=== PATIENT | male | born 1955 | race Hispanic/Latino ===

== ENCOUNTER 2020-04-15 12:57 | Inpatient (IN) | payer MEDICARE ==
[2020-04-15] MEDS ORDERED: CEFEPIME/NS 2 GM/100 ML 2 GM/100 ML BAG IV ONE (14:31)
[2020-04-15] MEDS ORDERED: SODIUM CHLORIDE 0.9% 1000 ML 1,000 ML IV ONE (14:37)
[2020-04-15 15:30] LABS: Hematocrit 38.7 % (35.5-45.6); Mean Corpuscular HGB Conc 31 % (32-34); Mean Corpuscular Volume 94 fl (84-94); Platelet Count 358 K/mm3 (140-440); Red Blood Count 4.14 M/mm3 (3.65-5.03); Red Cell Distribution Width 17.1 % (13.2-15.2)
--- NOTE | 2020-04-15 15:31 | XRay Report ---
CHEST 1 VIEW 04/15/2020 2:15 PM INDICATION / CLINICAL INFORMATION: sepsis. COMPARISON: None available. FINDINGS: SUPPORT DEVICES: None. HEART / MEDIASTINUM: Cardiomegaly. Aortic arch atherosclerotic calcification. Hilar and mediastinal c ontours are otherwise unremarkable. LUNGS / PLEURA: Mildly hyperexpanded lungs suggest COPD changes. Left costophrenic angle is visualize d suggesting [id number] pleural effusion. Right lung is clear. No pneumothorax. ADDITIONAL FINDINGS: No significant additional findings. IMPRESSION: 1. Blunting of the left costophrenic angle suggesting [id number] pleural effusion. 2. Mildly hyperexpanded lungs suggesting COPD. 3. Cardiomegaly. Signer Name: Brandon Morgan MD Signed: 04/15/2020 3:26 PM Workstation Name: [id number]
[2020-04-15 15:54] LABS: C-Reactive Protein 17.5 mg/dL (0.00-1.30)
[2020-04-15 15:54] LABS: Bilirubin,Urine NEG (Negative); Blood,Urine NEG (Negative); Color,Urine Yellow (Yellow)
[2020-04-15 16:00] LABS: Alanine Aminotransferase 19 units/L (7-56); Albumin 2.5 g/dL (3.9-5); Blood Urea Nitrogen 29 mg/dL (9-20); Calcium 8.9 mg/dL (8.4-10.2); Hemolysis Index 1
[2020-04-15 16:00] LABS: ABG Base Excess 4.5 mmol/L (-2.0-3.0); ABG HCO3 29.6 mmol/L (20.0-26.0); ABG Methemoglobin 0.5 % (0.0-1.5); ABG Oxygen Saturation 87.3 % (95.0-99.0); ABG PCO2 46.4 mm Hg; ABG PH 7.423 pH Units (7.350-7.450); ABG PO2 56.2 mm Hg (80.0-90.0)
[2020-04-15 16:03] LABS: BUN/Creatinine Ratio 41
[2020-04-15 16:19] LABS: Chol/HDL Ratio 2.43 %
--- NOTE | 2020-04-15 16:33 | Emergency Department Report ---
ED General Adult HPI - General Chief complaint: Dyspnea/Respdistress Stated complaint: MENTAL HEALTH Time Seen by Provider: 04/15/20 13:14 Source: EMS Mode of arrival: Stretcher Limitations: No Limitations - History of Present Illness Initial comments: The patient presents to the emergency department from [facility] via EMS for chief complaint of altered mental status. Per EMS the patient was found in his room with his O2 sats in the 80s. He was placed on 3 L nasal cannula with O2 sats rising to 94%. Patient received 800 cc of fluid in route via EMS. The patient is altered upon arrival is not able to answer questions. Per EMS his systolic blood pressure was 82 upon arrival and the patient had a temperature of 100.4 -: unknown Consistency: constant Improves with: none Worsens with: none Associated Symptoms: denies other symptoms Treatments Prior to Arrival: none - Related Data Allergies Allergy/AdvReac Type Severity Reaction Status Date / Time No Known Allergies Allergy Unverified 04/15/20 13:09 ED Review of Systems ROS: Stated complaint: MENTAL HEALTH Other details as noted in HPI Comment: Unobtainable due to pts medical conditions ED Past Medical Hx - Past Medical History Previous Medical History?: Yes Hx Congestive Heart Failure: Yes Hx Diabetes: Yes Additional medical history: A fib ED Physical Exam - General Limitations: No Limitations General appearance: obtunded (But arousable to verbal and painful stimuli) - Head Head exam: Present: atraumatic, normocephalic - Eye Eye exam: Present: normal appearance, PERRL, EOMI - ENT ENT exam: Present: mucous membranes dry - Neck Neck exam: Present: normal inspection - Respiratory Respiratory exam: Present: respiratory distress, decreased breath sounds. Absent: wheezes, rales - Cardiovascular Cardiovascular Exam: Present: normal rhythm, tachycardia - GI/Abdominal GI/Abdominal exam: Present: soft, normal bowel sounds. Absent: distended, tenderness - exam: Present: other (Patient has swelling of his scrotum secondary to a direct inguinal hernia; hernia cannot be reduced on exam but returned to its original herniated position). Absent: testicular tenderness - Extremities Exam Extremities exam: Present: normal inspection - Neurological Exam Neurological exam: Present: altered - Skin Skin exam: Present: warm, dry, intact, normal color, other (Patient has decubitus ulcers of the sacrum) ED Course Vital Signs 04/15/20 04/15/20 04/15/20 14:32 14:35 14:37 Temperature 100.2 F H Pulse Rate 87 81 Respiratory 18 22 23 Rate Blood Pressure Blood Pressure 86/57 [Right] O2 Sat by Pulse 97 94 99 Oximetry 04/15/20 04/15/20 04/15/20 14:45 15:01 15:15 Temperature Pulse Rate 82 89 82 Respiratory 18 24 11 L Rate Blood Pressure 86/57 78/55 86/62 Blood Pressure [Right] O2 Sat by Pulse 81 L 99 100 Oximetry 04/15/20 04/15/20 04/15/20 15:31 15:45 16:30 Temperature Pulse Rate 86 97 H Respiratory 21 26 H Rate Blood Pressure 86/62 79/46 Blood Pressure [Right] O2 Sat by Pulse 87 88 97 Oximetry ED Medical Decision Making - Lab Data Result diagrams: 04/15/20 15:07 04/15/20 15:07 Lab Results 04/15/20 04/15/20 04/15/20 Range/Units 15:04 15:07 15:07 WBC 23.2 H (4.5-11.0) K/mm3 RBC 4.14 (3.65-5.03) M/mm3 Hgb 12.0 (11.8-15.2) gm/dl Hct 38.7 (35.5-45.6) % MCV 94 (84-94) fl MCH 29 (28-32) pg MCHC 31 L (32-34) % RDW 17.1 H (13.2-15.2) % Plt Count 358 (140-440) K/mm3 Add Manual Diff Complete Total Counted 100 Seg Neuts % (Manual) 88.0 H (40.0-70.0) % Band Neutrophils % 3.0 % Lymphocytes % (Manual) 5.0 L (13.4-35.0) % Monocytes % (Manual) 4.0 (0.0-7.3) % Nucleated RBC % Not Reportable Seg Neutrophils # Man 20.4 H (1.8-7.7) K/mm3 Band Neutrophils # 0.7 K/mm3 Lymphocytes # (Manual) 1.2 (1.2-5.4) K/mm3 Abs React Lymphs (Man) 0.0 K/mm3 Monocytes # (Manual) 0.9 H (0.0-0.8) K/mm3 Eosinophils # (Manual) 0.0 (0.0-0.4) K/mm3 Basophils # (Manual) 0.0 (0.0-0.1) K/mm3 Metamyelocytes # 0.0 K/mm3 Myelocytes # 0.0 K/mm3 Promyelocytes # 0.0 K/mm3 Blast Cells # 0.0 K/mm3 WBC Morphology Not Reportable Hypersegmented Neuts Not Reportable Hyposegmented Neuts Not Reportable Hypogranular Neuts Not Reportable Smudge Cells Not Reportable Toxic Granulation Not Reportable Toxic Vacuolation Not Reportable Dohle Bodies Not Reportable Pelger-Huet Anomaly Not Reportable Gregorio Rods Not Reportable Platelet Estimate Consistent w auto Clumped Platelets Not Reportable Plt Clumps, EDTA Not Reportable Large Platelets Rare Giant Platelets Not Reportable Platelet Satelliting Not Reportable Plt Morphology Comment Not Reportable RBC Morphology Not Reportable Dimorphic RBCs Not Reportable Polychromasia Not Reportable Hypochromasia Not Reportable Poikilocytosis Not Reportable Anisocytosis Not Reportable Microcytosis Not Reportable Macrocytosis Not Reportable Spherocytes Not Reportable Pappenheimer Bodies Not Reportable Sickle Cells Not Reportable Target Cells Not Reportable Tear Drop Cells Not Reportable Ovalocytes Rare Helmet Cells Not Reportable [place] Bodies Not Reportable [place] Rings Not Reportable Ki Cells Not Reportable Bite Cells Not Reportable Crenated Cell Not Reportable Elliptocytes Not Reportable Acanthocytes (Spur) Rare Rouleaux Not Reportable Hemoglobin C Crystals Not Reportable Schistocytes Not Reportable Malaria parasites Not Reportable Balwinder Bodies Not Reportable Hem Pathologist Commnt No APTT 40.2 H (24.2-36.6) Sec. D-Dimer (0-234) ng/mlDDU ABG pH (7.350-7.450) pH Units ABG pCO2 mm Hg ABG pO2 (80.0-90.0) mm Hg ABG HCO3 (20.0-26.0) mmol/L ABG O2 Saturation (95.0-99.0) % ABG O2 Content (0.0-44) ABG Base Excess (-2.0-3.0) mmol/L ABG Hemoglobin (14.0-18.0) gm/dl ABG Carboxyhemoglobin (0.0-5.0) % ABG Methemoglobin (0.0-1.5) % Oxyhemoglobin (95.0-99.0) % FiO2 % Sodium (137-145) mmol/L Potassium (3.6-5.0) mmol/L Chloride (98-107) mmol/L Carbon Dioxide (22-30) mmol/L Anion Gap mmol/L BUN (9-20) mg/dL Creatinine (0.8-1.3) mg/dL Estimated GFR ml/min BUN/Creatinine Ratio % Glucose (75-100) mg/dL Lactic Acid (0.7-2.0) mmol/L Calcium (8.4-10.2) mg/dL Ferritin (30.0-300.0) ng/mL Total Bilirubin (0.1-1.2) mg/dL AST (5-40) units/L ALT (7-56) units/L Alkaline Phosphatase (35-129) units/L Ammonia (25-60) umol/L Lactate Dehydrogenase (91-180) units/L Troponin T (0.00-0.029) ng/mL C-Reactive Protein (0.00-1.30) mg/dL NT-Pro-B Natriuret Pep (0-900) pg/mL Total Protein (6.3-8.2) g/dL Albumin (3.9-5) g/dL Albumin/Globulin Ratio % Triglycerides (2-149) mg/dL Cholesterol (50-199) mg/dL LDL Cholesterol Direct (50-130) mg/dL HDL Cholesterol (40-59) mg/dL Cholesterol/HDL Ratio % Urine Color Yellow (Yellow) Urine Turbidity Clear (Clear) Urine pH 5.0 (5.0-7.0) Ur Specific Ross 1.018 (1.003-1.030) Urine Protein 30 mg/dl (Negative) mg/dL Urine Glucose (UA) Neg (Negative) mg/dL Urine Ketones Neg (Negative) mg/dL Urine Blood Neg (Negative) Urine Nitrite Neg (Negative) Urine Bilirubin Neg (Negative) Urine Urobilinogen 4.0 (<2.0) mg/dL Ur Leukocyte Esterase Neg (Negative) Urine WBC (Auto) 2.0 (0.0-6.0) /HPF Urine RBC (Auto) 1.0 (0.0-6.0) /HPF 04/15/20 04/15/20 04/15/20 Range/Units 15:07 15:07 15:07 WBC (4.5-11.0) K/mm3 RBC (3.65-5.03) M/mm3 Hgb (11.8-15.2) gm/dl Hct (35.5-45.6) % MCV (84-94) fl MCH (28-32) pg MCHC (32-34) % RDW (13.2-15.2) % Plt Count (140-440) K/mm3 Add Manual Diff Total Counted Seg Neuts % (Manual) (40.0-70.0) % Band Neutrophils % % Lymphocytes % (Manual) (13.4-35.0) % Monocytes % (Manual) (0.0-7.3) % Nucleated RBC % Seg Neutrophils # Man (1.8-7.7) K/mm3 Band Neutrophils # K/mm3 Lymphocytes # (Manual) (1.2-5.4) K/mm3 Abs React Lymphs (Man) K/mm3 Monocytes # (Manual) (0.0-0.8) K/mm3 Eosinophils # (Manual) (0.0-0.4) K/mm3 Basophils # (Manual) (0.0-0.1) K/mm3 Metamyelocytes # K/mm3 Myelocytes # K/mm3 Promyelocytes # K/mm3 Blast Cells # K/mm3 WBC Morphology Hypersegmented Neuts Hyposegmented Neuts Hypogranular Neuts Smudge Cells Toxic Granulation Toxic Vacuolation Dohle Bodies Pelger-Huet Anomaly Gregorio Rods Platelet Estimate Clumped Platelets Plt Clumps, EDTA Large Platelets Giant Platelets Platelet Satelliting Plt Morphology Comment RBC Morphology Dimorphic RBCs Polychromasia Hypochromasia Poikilocytosis Anisocytosis Microcytosis Macrocytosis Spherocytes Pappenheimer Bodies Sickle Cells Target Cells Tear Drop Cells Ovalocytes Helmet Cells Werner-[place] Bodies [place] Rings [place] Cells Bite Cells Crenated Cell Elliptocytes Acanthocytes (Spur) Rouleaux Hemoglobin C Crystals Schistocytes Malaria parasites Balwinder Bodies Hem Pathologist Commnt APTT (24.2-36.6) Sec. D-Dimer (0-234) ng/mlDDU ABG pH (7.350-7.450) pH Units ABG pCO2 mm Hg ABG pO2 (80.0-90.0) mm Hg ABG HCO3 (20.0-26.0) mmol/L ABG O2 Saturation (95.0-99.0) % ABG O2 Content (0.0-44) ABG Base Excess (-2.0-3.0) mmol/L ABG Hemoglobin (14.0-18.0) gm/dl ABG Carboxyhemoglobin (0.0-5.0) % ABG Methemoglobin (0.0-1.5) % Oxyhemoglobin (95.0-99.0) % FiO2 % Sodium 138 (137-145) mmol/L Potassium 5.2 H (3.6-5.0) mmol/L Chloride 98.6 (98-107) mmol/L Carbon Dioxide 32 H (22-30) mmol/L Anion Gap 13 mmol/L BUN 29 H (9-20) mg/dL Creatinine 0.7 L (0.8-1.3) mg/dL Estimated GFR > 60 ml/min BUN/Creatinine Ratio 41 % Glucose 199 H (75-100) mg/dL Lactic Acid 0.90 (0.7-2.0) mmol/L Calcium 8.9 (8.4-10.2) mg/dL Ferritin (30.0-300.0) ng/mL Total Bilirubin 0.70 (0.1-1.2) mg/dL AST 33 (5-40) units/L ALT 19 (7-56) units/L Alkaline Phosphatase 169 H (35-129) units/L Ammonia (25-60) umol/L Lactate Dehydrogenase (91-180) units/L Troponin T 0.138 H* (0.00-0.029) ng/mL C-Reactive Protein (0.00-1.30) mg/dL NT-Pro-B Natriuret Pep (0-900) pg/mL Total Protein 5.4 L (6.3-8.2) g/dL Albumin 2.5 L (3.9-5) g/dL Albumin/Globulin Ratio 0.9 % Triglycerides 79 (2-149) mg/dL Cholesterol 78 (50-199) mg/dL LDL Cholesterol Direct 33 L (50-130) mg/dL HDL Cholesterol 32 L (40-59) mg/dL Cholesterol/HDL Ratio 2.43 % Urine Color (Yellow) Urine Turbidity (Clear) Urine pH (5.0-7.0) Ur Specific Ross (1.003-1.030) Urine Protein (Negative) mg/dL Urine Glucose (UA) (Negative) mg/dL Urine Ketones (Negative) mg/dL Urine Blood (Negative) Urine Nitrite (Negative) Urine Bilirubin (Negative) Urine Urobilinogen (<2.0) mg/dL Ur Leukocyte Esterase (Negative) Urine WBC (Auto) (0.0-6.0) /HPF Urine RBC (Auto) (0.0-6.0) /HPF 04/15/20 04/15/20 04/15/20 Range/Units 15:07 15:07 15:07 WBC (4.5-11.0) K/mm3 RBC (3.65-5.03) M/mm3 Hgb (11.8-15.2) gm/dl Hct (35.5-45.6) % MCV (84-94) fl MCH (28-32) pg MCHC (32-34) % RDW (13.2-15.2) % Plt Count (140-440) K/mm3 Add Manual Diff Total Counted Seg Neuts % (Manual) (40.0-70.0) % Band Neutrophils % % Lymphocytes % (Manual) (13.4-35.0) % Monocytes % (Manual) (0.0-7.3) % Nucleated RBC % Seg Neutrophils # Man (1.8-7.7) K/mm3 Band Neutrophils # K/mm3 Lymphocytes # (Manual) (1.2-5.4) K/mm3 Abs React Lymphs (Man) K/mm3 Monocytes # (Manual) (0.0-0.8) K/mm3 Eosinophils # (Manual) (0.0-0.4) K/mm3 Basophils # (Manual) (0.0-0.1) K/mm3 Metamyelocytes # K/mm3 Myelocytes # K/mm3 Promyelocytes # K/mm3 Blast Cells # K/mm3 WBC Morphology Hypersegmented Neuts Hyposegmented Neuts Hypogranular Neuts Smudge Cells Toxic Granulation Toxic Vacuolation Dohle Bodies Pelger-Huet Anomaly Gregorio Rods Platelet Estimate Clumped Platelets Plt Clumps, EDTA Large Platelets Giant Platelets Platelet Satelliting Plt Morphology Comment RBC Morphology Dimorphic RBCs Polychromasia Hypochromasia Poikilocytosis Anisocytosis Microcytosis Macrocytosis Spherocytes Pappenheimer Bodies Sickle Cells Target Cells Tear Drop Cells Ovalocytes Helmet Cells Werner-[place] Bodies [place] Rings [place] Cells Bite Cells Crenated Cell Elliptocytes Acanthocytes (Spur) Rouleaux Hemoglobin C Crystals Schistocytes Malaria parasites Balwinder Bodies Hem Pathologist Commnt APTT (24.2-36.6) Sec. D-Dimer 801.82 H (0-234) ng/mlDDU ABG pH (7.350-7.450) pH Units ABG pCO2 mm Hg ABG pO2 (80.0-90.0) mm Hg ABG HCO3 (20.0-26.0) mmol/L ABG O2 Saturation (95.0-99.0) % ABG O2 Content (0.0-44) ABG Base Excess (-2.0-3.0) mmol/L ABG Hemoglobin (14.0-18.0) gm/dl ABG Carboxyhemoglobin (0.0-5.0) % ABG Methemoglobin (0.0-1.5) % Oxyhemoglobin (95.0-99.0) % FiO2 % Sodium (137-145) mmol/L Potassium (3.6-5.0) mmol/L Chloride (98-107) mmol/L Carbon Dioxide (22-30) mmol/L Anion Gap mmol/L BUN (9-20) mg/dL Creatinine (0.8-1.3) mg/dL Estimated GFR ml/min BUN/Creatinine Ratio % Glucose 204 H (75-100) mg/dL Lactic Acid (0.7-2.0) mmol/L Calcium (8.4-10.2) mg/dL Ferritin 469.2 H (30.0-300.0) ng/mL Total Bilirubin (0.1-1.2) mg/dL AST (5-40) units/L ALT (7-56) units/L Alkaline Phosphatase (35-129) units/L Ammonia (25-60) umol/L Lactate Dehydrogenase 193 H (91-180) units/L Troponin T (0.00-0.029) ng/mL C-Reactive Protein 17.50 H (0.00-1.30) mg/dL NT-Pro-B Natriuret Pep (0-900) pg/mL Total Protein (6.3-8.2) g/dL Albumin (3.9-5) g/dL Albumin/Globulin Ratio % Triglycerides (2-149) mg/dL Cholesterol (50-199) mg/dL LDL Cholesterol Direct (50-130) mg/dL HDL Cholesterol (40-59) mg/dL Cholesterol/HDL Ratio % Urine Color (Yellow) Urine Turbidity (Clear) Urine pH (5.0-7.0) Ur Specific Ross (1.003-1.030) Urine Protein (Negative) mg/dL Urine Glucose (UA) (Negative) mg/dL Urine Ketones (Negative) mg/dL Urine Blood (Negative) Urine Nitrite (Negative) Urine Bilirubin (Negative) Urine Urobilinogen (<2.0) mg/dL Ur Leukocyte Esterase (Negative) Urine WBC (Auto) (0.0-6.0) /HPF Urine RBC (Auto) (0.0-6.0) /HPF 04/15/20 04/15/20 04/15/20 Range/Units 15:07 15:07 15:35 WBC (4.5-11.0) K/mm3 RBC (3.65-5.03) M/mm3 Hgb (11.8-15.2) gm/dl Hct (35.5-45.6) % MCV (84-94) fl MCH (28-32) pg MCHC (32-34) % RDW (13.2-15.2) % Plt Count (140-440) K/mm3 Add Manual Diff Total Counted Seg Neuts % (Manual) (40.0-70.0) % Band Neutrophils % % Lymphocytes % (Manual) (13.4-35.0) % Monocytes % (Manual) (0.0-7.3) % Nucleated RBC % Seg Neutrophils # Man (1.8-7.7) K/mm3 Band Neutrophils # K/mm3 Lymphocytes # (Manual) (1.2-5.4) K/mm3 Abs React Lymphs (Man) K/mm3 Monocytes # (Manual) (0.0-0.8) K/mm3 Eosinophils # (Manual) (0.0-0.4) K/mm3 Basophils # (Manual) (0.0-0.1) K/mm3 Metamyelocytes # K/mm3 Myelocytes # K/mm3 Promyelocytes # K/mm3 Blast Cells # K/mm3 WBC Morphology Hypersegmented Neuts Hyposegmented Neuts Hypogranular Neuts Smudge Cells Toxic Granulation Toxic Vacuolation Dohle Bodies Pelger-Huet Anomaly Gregorio Rods Platelet Estimate Clumped Platelets Plt Clumps, EDTA Large Platelets Giant Platelets Platelet Satelliting Plt Morphology Comment RBC Morphology Dimorphic RBCs Polychromasia Hypochromasia Poikilocytosis Anisocytosis Microcytosis Macrocytosis Spherocytes Pappenheimer Bodies Sickle Cells Target Cells Tear Drop Cells Ovalocytes Helmet Cells Werner-[place] Bodies [place] Rings [place] Cells Bite Cells Crenated Cell Elliptocytes Acanthocytes (Spur) Rouleaux Hemoglobin C Crystals Schistocytes Malaria parasites Balwinder Bodies Hem Pathologist Commnt APTT (24.2-36.6) Sec. D-Dimer (0-234) ng/mlDDU ABG pH 7.423 (7.350-7.450) pH Units ABG pCO2 46.4 mm Hg ABG pO2 56.2 L (80.0-90.0) mm Hg ABG HCO3 29.6 H (20.0-26.0) mmol/L ABG O2 Saturation 87.3 L (95.0-99.0) % ABG O2 Content 14.0 (0.0-44) ABG Base Excess 4.5 H (-2.0-3.0) mmol/L ABG Hemoglobin 11.6 L (14.0-18.0) gm/dl ABG Carboxyhemoglobin 1.5 (0.0-5.0) % ABG Methemoglobin 0.5 (0.0-1.5) % Oxyhemoglobin 85.6 L (95.0-99.0) % FiO2 21 % Sodium (137-145) mmol/L Potassium (3.6-5.0) mmol/L Chloride (98-107) mmol/L Carbon Dioxide (22-30) mmol/L Anion Gap mmol/L BUN (9-20) mg/dL Creatinine (0.8-1.3) mg/dL Estimated GFR ml/min BUN/Creatinine Ratio % Glucose (75-100) mg/dL Lactic Acid (0.7-2.0) mmol/L Calcium (8.4-10.2) mg/dL Ferritin (30.0-300.0) ng/mL Total Bilirubin (0.1-1.2) mg/dL AST (5-40) units/L ALT (7-56) units/L Alkaline Phosphatase (35-129) units/L Ammonia 24.0 L (25-60) umol/L Lactate Dehydrogenase (91-180) units/L Troponin T (0.00-0.029) ng/mL C-Reactive Protein (0.00-1.30) mg/dL NT-Pro-B Natriuret Pep 5804 H (0-900) pg/mL Total Protein (6.3-8.2) g/dL Albumin (3.9-5) g/dL Albumin/Globulin Ratio % Triglycerides (2-149) mg/dL Cholesterol (50-199) mg/dL LDL Cholesterol Direct (50-130) mg/dL HDL Cholesterol (40-59) mg/dL Cholesterol/HDL Ratio % Urine Color (Yellow) Urine Turbidity (Clear) Urine pH (5.0-7.0) Ur Specific Ross (1.003-1.030) Urine Protein (Negative) mg/dL Urine Glucose (UA) (Negative) mg/dL Urine Ketones (Negative) mg/dL Urine Blood (Negative) Urine Nitrite (Negative) Urine Bilirubin (Negative) Urine Urobilinogen (<2.0) mg/dL Ur Leukocyte Esterase (Negative) Urine WBC (Auto) (0.0-6.0) /HPF Urine RBC (Auto) (0.0-6.0) /HPF 04/15/20 Range/Units 17:56 WBC (4.5-11.0) K/mm3 RBC (3.65-5.03) M/mm3 Hgb (11.8-15.2) gm/dl Hct (35.5-45.6) % MCV (84-94) fl MCH (28-32) pg MCHC (32-34) % RDW (13.2-15.2) % Plt Count (140-440) K/mm3 Add Manual Diff Total Counted Seg Neuts % (Manual) (40.0-70.0) % Band Neutrophils % % Lymphocytes % (Manual) (13.4-35.0) % Monocytes % (Manual) (0.0-7.3) % Nucleated RBC % Seg Neutrophils # Man (1.8-7.7) K/mm3 Band Neutrophils # K/mm3 Lymphocytes # (Manual) (1.2-5.4) K/mm3 Abs React Lymphs (Man) K/mm3 Monocytes # (Manual) (0.0-0.8) K/mm3 Eosinophils # (Manual) (0.0-0.4) K/mm3 Basophils # (Manual) (0.0-0.1) K/mm3 Metamyelocytes # K/mm3 Myelocytes # K/mm3 Promyelocytes # K/mm3 Blast Cells # K/mm3 WBC Morphology Hypersegmented Neuts Hyposegmented Neuts Hypogranular Neuts Smudge Cells Toxic Granulation Toxic Vacuolation Dohle Bodies Pelger-Huet Anomaly Gregorio Rods Platelet Estimate Clumped Platelets Plt Clumps, EDTA Large Platelets Giant Platelets Platelet Satelliting Plt Morphology Comment RBC Morphology Dimorphic RBCs Polychromasia Hypochromasia Poikilocytosis Anisocytosis Microcytosis Macrocytosis Spherocytes Pappenheimer Bodies Sickle Cells Target Cells Tear Drop Cells Ovalocytes Helmet Cells [place] Bodies [place] Rings Ki Cells Bite Cells Crenated Cell Elliptocytes Acanthocytes (Spur) Rouleaux Hemoglobin C Crystals Schistocytes Malaria parasites Balwinder Bodies Hem Pathologist Commnt APTT (24.2-36.6) Sec. D-Dimer (0-234) ng/mlDDU ABG pH (7.350-7.450) pH Units ABG pCO2 mm Hg ABG pO2 (80.0-90.0) mm Hg ABG HCO3 (20.0-26.0) mmol/L ABG O2 Saturation (95.0-99.0) % ABG O2 Content (0.0-44) ABG Base Excess (-2.0-3.0) mmol/L ABG Hemoglobin (14.0-18.0) gm/dl ABG Carboxyhemoglobin (0.0-5.0) % ABG Methemoglobin (0.0-1.5) % Oxyhemoglobin (95.0-99.0) % FiO2 % Sodium (137-145) mmol/L Potassium (3.6-5.0) mmol/L Chloride (98-107) mmol/L Carbon Dioxide (22-30) mmol/L Anion Gap mmol/L BUN (9-20) mg/dL Creatinine (0.8-1.3) mg/dL Estimated GFR ml/min BUN/Creatinine Ratio % Glucose (75-100) mg/dL Lactic Acid 1.70 (0.7-2.0) mmol/L Calcium (8.4-10.2) mg/dL Ferritin (30.0-300.0) ng/mL Total Bilirubin (0.1-1.2) mg/dL AST (5-40) units/L ALT (7-56) units/L Alkaline Phosphatase (35-129) units/L Ammonia (25-60) umol/L Lactate Dehydrogenase (91-180) units/L Troponin T (0.00-0.029) ng/mL C-Reactive Protein (0.00-1.30) mg/dL NT-Pro-B Natriuret Pep (0-900) pg/mL Total Protein (6.3-8.2) g/dL Albumin (3.9-5) g/dL Albumin/Globulin Ratio % Triglycerides (2-149) mg/dL Cholesterol (50-199) mg/dL LDL Cholesterol Direct (50-130) mg/dL HDL Cholesterol (40-59) mg/dL Cholesterol/HDL Ratio % Urine Color (Yellow) Urine Turbidity (Clear) Urine pH (5.0-7.0) Ur Specific Ross (1.003-1.030) Urine Protein (Negative) mg/dL Urine Glucose (UA) (Negative) mg/dL Urine Ketones (Negative) mg/dL Urine Blood (Negative) Urine Nitrite (Negative) Urine Bilirubin (Negative) Urine Urobilinogen (<2.0) mg/dL Ur Leukocyte Esterase (Negative) Urine WBC (Auto) (0.0-6.0) /HPF Urine RBC (Auto) (0.0-6.0) /HPF - Radiology Data Radiology results: report reviewed - Medical Decision Making Patient given IV fluids and IV antibiotics Critical Care Time: Yes Critical care time in (mins) excluding proc time.: 35 Critical care attestation.: If time is entered above; I have spent that time in minutes in the direct care of this critically ill patient, excluding procedure time. ED Disposition Clinical Impression: Sepsis Disposition: 09 OP ADMIT IP TO THIS HOSP Is pt being admited?: Yes Does the pt Need Aspirin: No Condition: Fair Referrals: [facility]UR[facility]/REHAB,[facility] [Primary Care Provider] - 3-5 Days
--- NOTE | 2020-04-15 17:09 | Cat Scan Report ---
NONENHANCED CT SCAN OF THE HEAD: INDICATION / CLINICAL INFORMATION: 64 years Male; ams. TECHNIQUE: Routine CT head without contrast. All CT scans at this location are performed using CT dos e reduction for ALARA by means of automated exposure control. COMPARISON: None. FINDINGS: BRAIN / INTRACRANIAL CONTENTS: No acute hemorrhage, mass effect, midline shift, hydrocephalus, or acu te, large territorial infarct. Encephalomalacia in the left posterior cerebral artery territory spari ng; chronic lacune in the right thalamus; moderate cortical involution; brainstem and cerebellar lumb ar normal; periventricular and deep hemispheric white matter normal CRANIOCERVICAL JUNCTION: No significant abnormality. ORBITS: No significant abnormality of visualized orbits. SINUSES / MASTOIDS: No significant abnormality of the visualized paranasal sinuses or mastoid air ketan ls. ADDITIONAL FINDINGS: None. IMPRESSION: Encephalomalacia in the left posterior cerebral artery territory No acute focal parenchymal lesion Signer Name: Gamal Werner MD Signed: 04/15/2020 5:04 PM Workstation Name: [id number]
--- NOTE | 2020-04-15 17:40 | Cat Scan Report ---
CTA CHEST WITH CONTRAST INDICATION / CLINICAL INFORMATION: elevated d dimer and hypoxia. TECHNIQUE: Axial CT images were obtained through the chest after injection of IV contrast. 3 plane WI P and/or 3D reconstructions were produced. All CT scans at this location are performed using CT dose reduction for ALARA by means of automated exposure control. COMPARISON: Chest radiograph from 04/15/2020 FINDINGS: PULMONARY ARTERIES: No central or segmental pulmonary embolus. There is gradual diminished opacificat ion of the left lower lobe subsegmental pulmonary arteries, which is believed to be artifactual. THORACIC AORTA: Moderate atherosclerotic calcification without acute abnormality. HEART: There is cardiac enlargement without pericardial effusion. ADENOPATHY: No significant adenopathy. LUNGS/PLEURA: Scattered areas of volume loss. No acute interstitial or airspace disease is identified . No pleural effusion. No pneumothorax. ADDITIONAL FINDINGS: None. UPPER ABDOMEN: No acute findings. SKELETAL STRUCTURES: No significant osseous abnormality. IMPRESSION: 1. No central or segmental pulmonary embolus. Gradual diminished opacification of the left lower lobe subsegmental pulmonary arteries is favored to be artifactual. 2. No acute findings in the chest. 3. Cardiomegaly without overt failure. No pleural effusion. Signer Name: Venkata Tucker MD Signed: 04/15/2020 5:35 PM Workstation Name: [id number]
[2020-04-15 18:43] LABS: Band Neutrophils # (Manual) 0.7 K/mm3; Total Cells Counted 100
[2020-04-15 18:44] LABS: Ovalocytes Rare
[2020-04-15 18:45] LABS: Large Platelets Rare; Platelet Estimate Consistent w Auto
[2020-04-15] MEDS: FUROSEMIDE 40 MG/4 ML INJ IV ONE ×2 (19:37→21:15)
[2020-04-15] MEDS ORDERED: HALOPERIDOL LACTATE 5 MG/1 ML INJ ONE (19:38)
[2020-04-15] MEDS ORDERED: HALOPERIDOL LACTATE 5 MG/1 ML INJ IM ONE (19:39)
[2020-04-15] MEDS ORDERED: ACETAMINOPHEN 325 MG TAB PO PRN (22:34)
[2020-04-15] MEDS ORDERED: ONDANSETRON 4 MG/2 ML INJ IV PRN (22:34)
--- NOTE | 2020-04-15 22:34 | History and Physical Report ---
History of Present Illness Date of examination: 04/15/20 Date of admission: 04/15/20 19:03 Chief complaint: Altered sensorium for 1 day History of present illness: 64-year-old male with history of congestive heart failure and diabetes presents to the emergency room from [facility] with low oxygen saturations and mental status. Patient has multiple decubitus ulcers on sacrum and both of the legs. Fever present. Patient was given IV fluid bolus via EMS. Patient altered and not able to answer any of my questions. Also lethargic. Low-grade fever present. Patient is also cachectic. His oxygen levels were in the 80s and was placed on 3 L nasal cannula oxygen with saturations improving to 94%. Patient has a history of congestive heart failure diabetes and atrial fibrillation. No recent exposure to coronavirus. Past History Past Medical History: diabetes, heart failure, hypertension Past Surgical History: Other (Not available) Social history: full code, other (Lives in [facility]) Family history: hypertension Medications and Allergies Allergies Allergy/AdvReac Type Severity Reaction Status Date / Time No Known Allergies Allergy Unverified 04/15/20 13:09 Review of Systems All systems: negative Constitutional: fever, lethargy, poor appetite Integumentary: sores, other (Decubitus ulcers and leg ulcers) Neurological: confusion, balance difficulties Exam - Constitutional Vitals: Temp Pulse Resp BP Pulse Ox 98.0 F 83 22 133/55 88 04/15/20 21:57 04/15/20 21:57 04/15/20 21:57 04/15/20 21:57 04/15/20 21:57 General appearance: Present: mild distress, well-nourished - EENT Eyes: Present: PERRL ENT: hearing intact, clear oral mucosa - Neck Neck: Present: supple, normal ROM - Respiratory Respiratory effort: normal Respiratory: bilateral: CTA - Cardiovascular Heart rate: 78 Rhythm: regular Heart Sounds: Present: S1 & S2. Absent: rub, click - Extremities Extremities: pulses symmetrical, No edema Peripheral Pulses: within normal limits - Abdominal General gastrointestinal: Present: soft, non-tender, non-distended, normal bowel sounds Male genitourinary: Present: normal - Integumentary Integumentary: Present: clear, warm, dry - Musculoskeletal Musculoskeletal: generalized weakness - Neurologic Neurologic: CNII-XII intact, moves all extremities, other (Lethargic and confused) - Allied Health Allied health notes reviewed: nursing, case management HEART Score - HEART Score Troponin: Troponin T 0.138 ng/mL (0.00-0.029) H* 04/15/20 15:07 Results - Labs CBC & Chem 7: 04/15/20 15:07 04/15/20 15:07 Labs: Laboratory Last Values WBC 23.2 K/mm3 (4.5-11.0) H 04/15/20 15:07 RBC 4.14 M/mm3 (3.65-5.03) 04/15/20 15:07 Hgb 12.0 gm/dl (11.8-15.2) 04/15/20 15:07 Hct 38.7 % (35.5-45.6) 04/15/20 15:07 MCV 94 fl (84-94) 04/15/20 15:07 MCH 29 pg (28-32) 04/15/20 15:07 MCHC 31 % (32-34) L 04/15/20 15:07 RDW 17.1 % (13.2-15.2) H 04/15/20 15:07 Plt Count 358 K/mm3 (140-440) 04/15/20 15:07 Add Manual Diff Complete 04/15/20 15:07 Total Counted 100 04/15/20 15:07 Seg Neuts % (Manual) 88.0 % (40.0-70.0) H 04/15/20 15:07 Band Neutrophils % 3.0 % 04/15/20 15:07 Lymphocytes % (Manual) 5.0 % (13.4-35.0) L 04/15/20 15:07 Monocytes % (Manual) 4.0 % (0.0-7.3) 04/15/20 15:07 Nucleated RBC % Not Reportable 04/15/20 15:07 Seg Neutrophils # Man 20.4 K/mm3 (1.8-7.7) H 04/15/20 15:07 Band Neutrophils # 0.7 K/mm3 04/15/20 15:07 Lymphocytes # (Manual) 1.2 K/mm3 (1.2-5.4) 04/15/20 15:07 Abs React Lymphs (Man) 0.0 K/mm3 04/15/20 15:07 Monocytes # (Manual) 0.9 K/mm3 (0.0-0.8) H 04/15/20 15:07 Eosinophils # (Manual) 0.0 K/mm3 (0.0-0.4) 04/15/20 15:07 Basophils # (Manual) 0.0 K/mm3 (0.0-0.1) 04/15/20 15:07 Metamyelocytes # 0.0 K/mm3 04/15/20 15:07 Myelocytes # 0.0 K/mm3 04/15/20 15:07 Promyelocytes # 0.0 K/mm3 04/15/20 15:07 Blast Cells # 0.0 K/mm3 04/15/20 15:07 WBC Morphology Not Reportable 04/15/20 15:07 Hypersegmented Neuts Not Reportable 04/15/20 15:07 Hyposegmented Neuts Not Reportable 04/15/20 15:07 Hypogranular Neuts Not Reportable 04/15/20 15:07 Smudge Cells Not Reportable 04/15/20 15:07 Toxic Granulation Not Reportable 04/15/20 15:07 Toxic Vacuolation Not Reportable 04/15/20 15:07 Dohle Bodies Not Reportable 04/15/20 15:07 Pelger-Huet Anomaly Not Reportable 04/15/20 15:07 Gregorio Rods Not Reportable 04/15/20 15:07 Platelet Estimate Consistent w auto 04/15/20 15:07 Clumped Platelets Not Reportable 04/15/20 15:07 Plt Clumps, EDTA Not Reportable 04/15/20 15:07 Large Platelets Rare 04/15/20 15:07 Giant Platelets Not Reportable 04/15/20 15:07 Platelet Satelliting Not Reportable 04/15/20 15:07 Plt Morphology Comment Not Reportable 04/15/20 15:07 RBC Morphology Not Reportable 04/15/20 15:07 Dimorphic RBCs Not Reportable 04/15/20 15:07 Polychromasia Not Reportable 04/15/20 15:07 Hypochromasia Not Reportable 04/15/20 15:07 Poikilocytosis Not Reportable 04/15/20 15:07 Anisocytosis Not Reportable 04/15/20 15:07 Microcytosis Not Reportable 04/15/20 15:07 Macrocytosis Not Reportable 04/15/20 15:07 Spherocytes Not Reportable 04/15/20 15:07 Pappenheimer Bodies Not Reportable 04/15/20 15:07 Sickle Cells Not Reportable 04/15/20 15:07 Target Cells Not Reportable 04/15/20 15:07 Tear Drop Cells Not Reportable 04/15/20 15:07 Ovalocytes Rare 04/15/20 15:07 Helmet Cells Not Reportable 04/15/20 15:07 [place] Bodies Not Reportable 04/15/20 15:07 [place] Rings Not Reportable 04/15/20 15:07 Ki Cells Not Reportable 04/15/20 15:07 Bite Cells Not Reportable 04/15/20 15:07 Crenated Cell Not Reportable 04/15/20 15:07 Elliptocytes Not Reportable 04/15/20 15:07 Acanthocytes (Spur) Rare 04/15/20 15:07 Rouleaux Not Reportable 04/15/20 15:07 Hemoglobin C Crystals Not Reportable 04/15/20 15:07 Schistocytes Not Reportable 04/15/20 15:07 Malaria parasites Not Reportable 04/15/20 15:07 Balwinder Bodies Not Reportable 04/15/20 15:07 Hem Pathologist Commnt No 04/15/20 15:07 APTT 40.2 Sec. (24.2-36.6) H 04/15/20 15:07 D-Dimer 801.82 ng/mlDDU (0-234) H 04/15/20 15:07 ABG pH 7.423 pH Units (7.350-7.450) 04/15/20 15:35 ABG pCO2 46.4 mm Hg 04/15/20 15:35 ABG pO2 56.2 mm Hg (80.0-90.0) L 04/15/20 15:35 ABG HCO3 29.6 mmol/L (20.0-26.0) H 04/15/20 15:35 ABG O2 Saturation 87.3 % (95.0-99.0) L 04/15/20 15:35 ABG O2 Content 14.0 (0.0-44) 04/15/20 15:35 ABG Base Excess 4.5 mmol/L (-2.0-3.0) H 04/15/20 15:35 ABG Hemoglobin 11.6 gm/dl (14.0-18.0) L 04/15/20 15:35 ABG Carboxyhemoglobin 1.5 % (0.0-5.0) 04/15/20 15:35 ABG Methemoglobin 0.5 % (0.0-1.5) 04/15/20 15:35 Oxyhemoglobin 85.6 % (95.0-99.0) L 04/15/20 15:35 FiO2 21 % 04/15/20 15:35 Sodium 138 mmol/L (137-145) 04/15/20 15:07 Potassium 5.2 mmol/L (3.6-5.0) H 04/15/20 15:07 Chloride 98.6 mmol/L (98-107) 04/15/20 15:07 Carbon Dioxide 32 mmol/L (22-30) H 04/15/20 15:07 Anion Gap 13 mmol/L 04/15/20 15:07 BUN 29 mg/dL (9-20) H 04/15/20 15:07 Creatinine 0.7 mg/dL (0.8-1.3) L 04/15/20 15:07 Estimated GFR > 60 ml/min 04/15/20 15:07 BUN/Creatinine Ratio 41 % 04/15/20 15:07 Glucose 199 mg/dL (75-100) H 04/15/20 15:07 Glucose 204 mg/dL (75-100) H 04/15/20 15:07 Lactic Acid 1.70 mmol/L (0.7-2.0) 04/15/20 17:56 Calcium 8.9 mg/dL (8.4-10.2) 04/15/20 15:07 Ferritin 469.2 ng/mL (30.0-300.0) H 04/15/20 15:07 Total Bilirubin 0.70 mg/dL (0.1-1.2) 04/15/20 15:07 AST 33 units/L (5-40) 04/15/20 15:07 ALT 19 units/L (7-56) 04/15/20 15:07 Alkaline Phosphatase 169 units/L (35-129) H 04/15/20 15:07 Ammonia 24.0 umol/L (25-60) L 04/15/20 15:07 Lactate Dehydrogenase 193 units/L (91-180) H 04/15/20 15:07 Troponin T 0.138 ng/mL (0.00-0.029) H* 04/15/20 15:07 C-Reactive Protein 17.50 mg/dL (0.00-1.30) H 04/15/20 15:07 NT-Pro-B Natriuret Pep 5804 pg/mL (0-900) H 04/15/20 15:07 Total Protein 5.4 g/dL (6.3-8.2) L 04/15/20 15:07 Albumin 2.5 g/dL (3.9-5) L 04/15/20 15:07 Albumin/Globulin Ratio 0.9 % 04/15/20 15:07 Triglycerides 79 mg/dL (2-149) 04/15/20 15:07 Cholesterol 78 mg/dL (50-199) 04/15/20 15:07 LDL Cholesterol Direct 33 mg/dL (50-130) L 04/15/20 15:07 HDL Cholesterol 32 mg/dL (40-59) L 04/15/20 15:07 Cholesterol/HDL Ratio 2.43 % 04/15/20 15:07 Urine Color Yellow (Yellow) 04/15/20 15:04 Urine Turbidity Clear (Clear) 04/15/20 15:04 Urine pH 5.0 (5.0-7.0) 04/15/20 15:04 Ur Specific [place] 1.018 (1.003-1.030) 04/15/20 15:04 Urine Protein 30 mg/dl mg/dL (Negative) 04/15/20 15:04 Urine Glucose (UA) Neg mg/dL (Negative) 04/15/20 15:04 Urine Ketones Neg mg/dL (Negative) 04/15/20 15:04 Urine Blood Neg (Negative) 04/15/20 15:04 Urine Nitrite Neg (Negative) 04/15/20 15:04 Urine Bilirubin Neg (Negative) 04/15/20 15:04 Urine Urobilinogen 4.0 mg/dL (<2.0) 04/15/20 15:04 Ur Leukocyte Esterase Neg (Negative) 04/15/20 15:04 Urine WBC (Auto) 2.0 /HPF (0.0-6.0) 04/15/20 15:04 Urine RBC (Auto) 1.0 /HPF (0.0-6.0) 04/15/20 15:04 Microbiology: Microbiology 04/15/20 15:07 Peripheral/Venous Blood Culture - Preliminary Culture in Progress 04/15/20 15:07 Peripheral/Venous Blood Culture - Preliminary Culture in Progress - Imaging and Cardiology Imaging and Cardiology: Chest x-ray IMPRESSION: 1. Blunting of the left costophrenic angle suggesting [id number] pleural effusion. 2. Mildly hyperexpanded lungs suggesting COPD. 3. Cardiomegaly CT angiogram of the chest No acute PE. Assessment and Plan Advance Directives: Yes (Full code) VTE prophylaxis?: Chemical Plan of care discussed with patient/family: Yes - Patient Problems (1) Acute encephalopathy Current Visit: Yes Status: Acute Plan to address problem: Secondary to sepsis and decubitus ulcer infections White count is about 23,000 (2) Sepsis Current Visit: Yes Status: Acute Qualifiers: Severe sepsis shock status: without septic shock Plan to address problem: Secondary to decubitus ulcers and leg ulcers which are infected Wound care requested Surgery consult if necessary Patient initiated on IV cefepime and vancomycin (3) CHF (congestive heart failure) Current Visit: Yes Status: Chronic Qualifiers: Heart failure type: combined systolic and diastolic Plan to address problem: Echocardiogram for ejection fraction Gentle hydration till then (4) Hyperkalemia Current Visit: Yes Status: Acute Plan to address problem: Mild Calcium gluconate given (5) T2DM (type 2 diabetes mellitus) Current Visit: Yes Status: Chronic Qualifiers: Diabetes mellitus terminal worker insulin use: without terminal worker use Plan to address problem: I doubt whether he has diabetes His A1c is 4.8 Coverage if necessary (6) DVT prophylaxis Current Visit: Yes Status: Acute Plan to address problem: On heparin and GI prophylaxis
[2020-04-15] MEDS ORDERED: SODIUM CHLORIDE 0.9% 1000 ML 1,000 ML IV SCH (22:45)
[2020-04-15] MEDS ORDERED: VANCOMYCIN PHARMACY TO DOSE IV SCH (23:00)
[2020-04-16] MEDS ORDERED: VANCOMYCIN/NS 1 GM/250 ML 1 GM/250 ML BAG IV ONE (00:15)
[2020-04-16] MEDS: FAMOTIDINE 20 MG/2 ML INJ IV SCH ×3 (00:51→22:57)
[2020-04-16] MEDS: CEFEPIME/NS 2 GM/100 ML 2 GM/100 ML BAG IV SCH ×4 (01:18→22:57)
[2020-04-16] MEDS: HEPARIN 5,000 UNIT/1 ML VIAL SUB-Q SCH ×3 (01:19→22:54)
[2020-04-16] MEDS: HYDROmorphone 1 MG/1 ML INJ IV PRN ×3 (05:52→22:55)
[2020-04-16] MEDS: INSULIN LISPRO 100 UNIT/ML SUB-Q SCH ×4 (08:18→22:55)
[2020-04-16 08:33] LABS: Hematocrit 34.9 % (35.5-45.6); Hemoglobin 11.1 gm/dl (11.8-15.2); Mean Corpuscular HGB Conc 32 % (32-34); Mean Corpuscular Volume 96 fl (84-94); Platelet Count 279 K/mm3 (140-440); Red Blood Count 3.66 M/mm3 (3.65-5.03); Red Cell Distribution Width 17.2 % (13.2-15.2)
--- NOTE | 2020-04-16 08:36 | Progress Note ---
Hospitalist Physical - Constitutional Vitals: Temp Pulse Resp BP Pulse Ox 98.9 F 84 20 125/65 86 04/16/20 05:28 04/16/20 05:28 04/16/20 05:28 04/16/20 05:28 04/16/20 05:28 General appearance: Present: mild distress, well-nourished HEART Score - HEART Score Troponin: Troponin T 0.138 ng/mL (0.00-0.029) H* 04/15/20 15:07 Results - Labs CBC & Chem 7: 04/15/20 15:07 04/15/20 15:07 Labs: Laboratory Last Values WBC 23.2 K/mm3 (4.5-11.0) H 04/15/20 15:07 RBC 4.14 M/mm3 (3.65-5.03) 04/15/20 15:07 Hgb 12.0 gm/dl (11.8-15.2) 04/15/20 15:07 Hct 38.7 % (35.5-45.6) 04/15/20 15:07 MCV 94 fl (84-94) 04/15/20 15:07 MCH 29 pg (28-32) 04/15/20 15:07 MCHC 31 % (32-34) L 04/15/20 15:07 RDW 17.1 % (13.2-15.2) H 04/15/20 15:07 Plt Count 358 K/mm3 (140-440) 04/15/20 15:07 Add Manual Diff Complete 04/15/20 15:07 Total Counted 100 04/15/20 15:07 Seg Neuts % (Manual) 88.0 % (40.0-70.0) H 04/15/20 15:07 Band Neutrophils % 3.0 % 04/15/20 15:07 Lymphocytes % (Manual) 5.0 % (13.4-35.0) L 04/15/20 15:07 Monocytes % (Manual) 4.0 % (0.0-7.3) 04/15/20 15:07 Nucleated RBC % Not Reportable 04/15/20 15:07 Seg Neutrophils # Man 20.4 K/mm3 (1.8-7.7) H 04/15/20 15:07 Band Neutrophils # 0.7 K/mm3 04/15/20 15:07 Lymphocytes # (Manual) 1.2 K/mm3 (1.2-5.4) 04/15/20 15:07 Abs React Lymphs (Man) 0.0 K/mm3 04/15/20 15:07 Monocytes # (Manual) 0.9 K/mm3 (0.0-0.8) H 04/15/20 15:07 Eosinophils # (Manual) 0.0 K/mm3 (0.0-0.4) 04/15/20 15:07 Basophils # (Manual) 0.0 K/mm3 (0.0-0.1) 04/15/20 15:07 Metamyelocytes # 0.0 K/mm3 04/15/20 15:07 Myelocytes # 0.0 K/mm3 04/15/20 15:07 Promyelocytes # 0.0 K/mm3 04/15/20 15:07 Blast Cells # 0.0 K/mm3 04/15/20 15:07 WBC Morphology Not Reportable 04/15/20 15:07 Hypersegmented Neuts Not Reportable 04/15/20 15:07 Hyposegmented Neuts Not Reportable 04/15/20 15:07 Hypogranular Neuts Not Reportable 04/15/20 15:07 Smudge Cells Not Reportable 04/15/20 15:07 Toxic Granulation Not Reportable 04/15/20 15:07 Toxic Vacuolation Not Reportable 04/15/20 15:07 Dohle Bodies Not Reportable 04/15/20 15:07 Pelger-Huet Anomaly Not Reportable 04/15/20 15:07 Gregorio Rods Not Reportable 04/15/20 15:07 Platelet Estimate Consistent w auto 04/15/20 15:07 Clumped Platelets Not Reportable 04/15/20 15:07 Plt Clumps, EDTA Not Reportable 04/15/20 15:07 Large Platelets Rare 04/15/20 15:07 Giant Platelets Not Reportable 04/15/20 15:07 Platelet Satelliting Not Reportable 04/15/20 15:07 Plt Morphology Comment Not Reportable 04/15/20 15:07 RBC Morphology Not Reportable 04/15/20 15:07 Dimorphic RBCs Not Reportable 04/15/20 15:07 Polychromasia Not Reportable 04/15/20 15:07 Hypochromasia Not Reportable 04/15/20 15:07 Poikilocytosis Not Reportable 04/15/20 15:07 Anisocytosis Not Reportable 04/15/20 15:07 Microcytosis Not Reportable 04/15/20 15:07 Macrocytosis Not Reportable 04/15/20 15:07 Spherocytes Not Reportable 04/15/20 15:07 Pappenheimer Bodies Not Reportable 04/15/20 15:07 Sickle Cells Not Reportable 04/15/20 15:07 Target Cells Not Reportable 04/15/20 15:07 Tear Drop Cells Not Reportable 04/15/20 15:07 Ovalocytes Rare 04/15/20 15:07 Helmet Cells Not Reportable 04/15/20 15:07 [place] Bodies Not Reportable 04/15/20 15:07 [place] Rings Not Reportable 04/15/20 15:07 [place] Cells Not Reportable 04/15/20 15:07 Bite Cells Not Reportable 04/15/20 15:07 Crenated Cell Not Reportable 04/15/20 15:07 Elliptocytes Not Reportable 04/15/20 15:07 Acanthocytes (Spur) Rare 04/15/20 15:07 Rouleaux Not Reportable 04/15/20 15:07 Hemoglobin C Crystals Not Reportable 04/15/20 15:07 Schistocytes Not Reportable 04/15/20 15:07 Malaria parasites Not Reportable 04/15/20 15:07 Balwinder Bodies Not Reportable 04/15/20 15:07 Hem Pathologist Commnt No 04/15/20 15:07 APTT 40.2 Sec. (24.2-36.6) H 04/15/20 15:07 D-Dimer 801.82 ng/mlDDU (0-234) H 04/15/20 15:07 ABG pH 7.423 pH Units (7.350-7.450) 04/15/20 15:35 ABG pCO2 46.4 mm Hg 04/15/20 15:35 ABG pO2 56.2 mm Hg (80.0-90.0) L 04/15/20 15:35 ABG HCO3 29.6 mmol/L (20.0-26.0) H 04/15/20 15:35 ABG O2 Saturation 87.3 % (95.0-99.0) L 04/15/20 15:35 ABG O2 Content 14.0 (0.0-44) 04/15/20 15:35 ABG Base Excess 4.5 mmol/L (-2.0-3.0) H 04/15/20 15:35 ABG Hemoglobin 11.6 gm/dl (14.0-18.0) L 04/15/20 15:35 ABG Carboxyhemoglobin 1.5 % (0.0-5.0) 04/15/20 15:35 ABG Methemoglobin 0.5 % (0.0-1.5) 04/15/20 15:35 Oxyhemoglobin 85.6 % (95.0-99.0) L 04/15/20 15:35 FiO2 21 % 04/15/20 15:35 Sodium 138 mmol/L (137-145) 04/15/20 15:07 Potassium 5.2 mmol/L (3.6-5.0) H 04/15/20 15:07 Chloride 98.6 mmol/L (98-107) 04/15/20 15:07 Carbon Dioxide 32 mmol/L (22-30) H 04/15/20 15:07 Anion Gap 13 mmol/L 04/15/20 15:07 BUN 29 mg/dL (9-20) H 04/15/20 15:07 Creatinine 0.7 mg/dL (0.8-1.3) L 04/15/20 15:07 Estimated GFR > 60 ml/min 04/15/20 15:07 BUN/Creatinine Ratio 41 % 04/15/20 15:07 Glucose 199 mg/dL (75-100) H 04/15/20 15:07 Glucose 204 mg/dL (75-100) H 04/15/20 15:07 Lactic Acid 1.70 mmol/L (0.7-2.0) 04/15/20 17:56 Calcium 8.9 mg/dL (8.4-10.2) 04/15/20 15:07 Ferritin 469.2 ng/mL (30.0-300.0) H 04/15/20 15:07 Total Bilirubin 0.70 mg/dL (0.1-1.2) 04/15/20 15:07 AST 33 units/L (5-40) 04/15/20 15:07 ALT 19 units/L (7-56) 04/15/20 15:07 Alkaline Phosphatase 169 units/L (35-129) H 04/15/20 15:07 Ammonia 24.0 umol/L (25-60) L 04/15/20 15:07 Lactate Dehydrogenase 193 units/L (91-180) H 04/15/20 15:07 Troponin T 0.138 ng/mL (0.00-0.029) H* 04/15/20 15:07 C-Reactive Protein 17.50 mg/dL (0.00-1.30) H 04/15/20 15:07 NT-Pro-B Natriuret Pep 5804 pg/mL (0-900) H 04/15/20 15:07 Total Protein 5.4 g/dL (6.3-8.2) L 04/15/20 15:07 Albumin 2.5 g/dL (3.9-5) L 04/15/20 15:07 Albumin/Globulin Ratio 0.9 % 04/15/20 15:07 Triglycerides 79 mg/dL (2-149) 04/15/20 15:07 Cholesterol 78 mg/dL (50-199) 04/15/20 15:07 LDL Cholesterol Direct 33 mg/dL (50-130) L 04/15/20 15:07 HDL Cholesterol 32 mg/dL (40-59) L 04/15/20 15:07 Cholesterol/HDL Ratio 2.43 % 04/15/20 15:07 Urine Color Yellow (Yellow) 04/15/20 15:04 Urine Turbidity Clear (Clear) 04/15/20 15:04 Urine pH 5.0 (5.0-7.0) 04/15/20 15:04 Ur Specific [place] 1.018 (1.003-1.030) 04/15/20 15:04 Urine Protein 30 mg/dl mg/dL (Negative) 04/15/20 15:04 Urine Glucose (UA) Neg mg/dL (Negative) 04/15/20 15:04 Urine Ketones Neg mg/dL (Negative) 04/15/20 15:04 Urine Blood Neg (Negative) 04/15/20 15:04 Urine Nitrite Neg (Negative) 04/15/20 15:04 Urine Bilirubin Neg (Negative) 04/15/20 15:04 Urine Urobilinogen 4.0 mg/dL (<2.0) 04/15/20 15:04 Ur Leukocyte Esterase Neg (Negative) 04/15/20 15:04 Urine WBC (Auto) 2.0 /HPF (0.0-6.0) 04/15/20 15:04 Urine RBC (Auto) 1.0 /HPF (0.0-6.0) 04/15/20 15:04 Microbiology: Microbiology 04/15/20 15:07 Peripheral/Venous Blood Culture - Preliminary Culture in Progress 04/15/20 15:07 Peripheral/Venous Blood Culture - Preliminary Culture in Progress Campos/IV: Voiding Method Incontinent Active Medications - Current Medications Current Medications: Generic Name Dose Route Start Last Admin Trade Name Freq PRN Reason Stop Dose Admin Acetaminophen 650 mg 04/15/20 22:34 Acetaminophen 325 Mg Tab PO Q4H PRN Pain MILD(1-3)/Fever >100.5/ENRIQUEZ Famotidine 20 mg 04/15/20 23:00 04/16/20 00:51 Famotidine 20 Mg/2 Ml Inj IV 20 mg BID RIKA Administration Heparin Sodium (Porcine) 5,000 unit 04/15/20 23:00 04/16/20 01:19 Heparin 5,000 Unit/1 Ml Vial SUB-Q 5,000 unit Q12HR RIKA Administration Hydromorphone HCl 0.5 mg 04/15/20 22:34 04/16/20 05:52 Hydromorphone 1 Mg/1 Ml Inj IV 0.5 mg Q3H PRN Administration Pain , Severe (7-10) Cefepime HCl 2 gm in 100 mls @ 200 mls/hr 04/15/20 23:00 04/16/20 06:27 Cefepime/Ns 2 Gm/100 Ml IV Infused Q8HR [facility] Infusion Protocol Vancomycin HCl 750 mg/ Sodium 265 mls @ 166.667 mls/hr 04/16/20 10:00 Chloride IV Q12HR [facility] Insulin Human Lispro 0 unit 04/16/20 07:30 04/16/20 08:18 Insulin Lispro 100 Unit/Ml SUB-Q 2 unit ACHS RIKA Administration Protocol Ondansetron HCl 4 mg 04/15/20 22:34 Ondansetron 4 Mg/2 Ml Inj IV Q3H PRN Nausea And Vomiting Oxycodone/Acetaminophen 1 tab 04/15/20 22:34 Oxycodone /Acetaminophen 5-325mg Tab PO Q6H PRN Pain, Moderate (4-6) Sodium Chloride 10 ml 04/16/20 10:00 Sodium Chloride 0.9% 10 Ml Flush Syringe IV BID RIKA Sodium Chloride 10 ml 04/15/20 22:34 Sodium Chloride 0.9% 10 Ml Flush Syringe IV PRN PRN LINE FLUSH
--- NOTE | 2020-04-16 08:46 | Progress Note ---
Assessment and Plan Assessment and plan: --Acute metabolic encephalopathy; Multifactorial, closely monitor CT head without contrast; encephalomalacia No acute abnormality noted Supportive care --Decubitus ulcers/infected leg ulcers Empiric IV antibiotics, wound care Wound surgeon consult if needed for possible debridement Supportive care --Sepsis secondary to multiple infected wounds Follow cultures, continue antibiotics Follow wound care recommendations ID consult if needed --PUI; high suspicion for COVID-19 Isolation, inflammatory markers Check freeman PCR test ID consult if needed --Elevated D-dimers; CTA chest negative for PE Check lower extremity Doppler to evaluate for DVT --Severe protein calorie malnutrition; Albumin 2.5, BMI 19.4 Treat the underlying cause Nutrition supplements Nutrition consult --Congestive heart failure; unknown EF Antifailure medications, diuretics Echocardiogram for LV function and ejection fraction Cardiology consult if needed Input output monitoring --Type 2 diabetes mellitus/hyperglycemia Accu-Chek sliding scale coverage ADA diet Insulin as needed, check A1c --DVT prophylaxis; Lovenox --Full CODE STATUS We will closely monitor the patient and adjust the management as needed Plan of care reviewed with the patient and his nurse History Interval history: I have seen and examined the patient in the bedside Patient's chart and medications reviewed Patient feels slightly better No new complaints Vital signs reviewed Hospitalist Physical - Constitutional Vitals: Temp Pulse Resp BP Pulse Ox 98.9 F 84 20 125/65 94 04/16/20 05:28 04/16/20 05:28 04/16/20 05:28 04/16/20 05:28 04/16/20 08:40 General appearance: Present: mild distress, cachectic - EENT Eyes: Present: PERRL, EOM intact - Neck Neck: Present: supple, normal ROM - Respiratory Respiratory effort: normal Respiratory: bilateral: diminished, negative: rales, rhonchi, wheezing - Cardiovascular Rhythm: regular Heart Sounds: Present: S1 & S2 - Extremities Extremities: no ischemia, No edema - Abdominal General gastrointestinal: soft, non-tender, non-distended, normal bowel sounds - Integumentary Integumentary: Present: clear, warm - Psychiatric Psychiatric: appropriate mood/affect, cooperative - Neurologic Neurologic: CNII-XII intact, moves all extremities HEART Score - HEART Score Troponin: Troponin T 0.138 ng/mL (0.00-0.029) H* 04/15/20 15:07 Results - Labs CBC & Chem 7: 04/16/20 07:45 04/16/20 07:45 Labs: Laboratory Last Values WBC 23.7 K/mm3 (4.5-11.0) H 04/16/20 07:45 RBC 3.66 M/mm3 (3.65-5.03) 04/16/20 07:45 Hgb 11.1 gm/dl (11.8-15.2) L 04/16/20 07:45 Hct 34.9 % (35.5-45.6) L 04/16/20 07:45 MCV 96 fl (84-94) H 04/16/20 07:45 MCH 30 pg (28-32) 04/16/20 07:45 MCHC 32 % (32-34) 04/16/20 07:45 RDW 17.2 % (13.2-15.2) H 04/16/20 07:45 Plt Count 279 K/mm3 (140-440) 04/16/20 07:45 Add Manual Diff Complete 04/15/20 15:07 Total Counted 100 04/15/20 15:07 Seg Neutrophils % Second Butler 04/16/20 07:45 Seg Neuts % (Manual) 88.0 % (40.0-70.0) H 04/15/20 15:07 Band Neutrophils % 3.0 % 04/15/20 15:07 Lymphocytes % (Manual) 5.0 % (13.4-35.0) L 04/15/20 15:07 Monocytes % (Manual) 4.0 % (0.0-7.3) 04/15/20 15:07 Nucleated RBC % Not Reportable 04/15/20 15:07 Seg Neutrophils # Man 20.4 K/mm3 (1.8-7.7) H 04/15/20 15:07 Band Neutrophils # 0.7 K/mm3 04/15/20 15:07 Lymphocytes # (Manual) 1.2 K/mm3 (1.2-5.4) 04/15/20 15:07 Abs React Lymphs (Man) 0.0 K/mm3 04/15/20 15:07 Monocytes # (Manual) 0.9 K/mm3 (0.0-0.8) H 04/15/20 15:07 Eosinophils # (Manual) 0.0 K/mm3 (0.0-0.4) 04/15/20 15:07 Basophils # (Manual) 0.0 K/mm3 (0.0-0.1) 04/15/20 15:07 Metamyelocytes # 0.0 K/mm3 04/15/20 15:07 Myelocytes # 0.0 K/mm3 04/15/20 15:07 Promyelocytes # 0.0 K/mm3 04/15/20 15:07 Blast Cells # 0.0 K/mm3 04/15/20 15:07 WBC Morphology Not Reportable 04/15/20 15:07 Hypersegmented Neuts Not Reportable 04/15/20 15:07 Hyposegmented Neuts Not Reportable 04/15/20 15:07 Hypogranular Neuts Not Reportable 04/15/20 15:07 Smudge Cells Not Reportable 04/15/20 15:07 Toxic Granulation Not Reportable 04/15/20 15:07 Toxic Vacuolation Not Reportable 04/15/20 15:07 Dohle Bodies Not Reportable 04/15/20 15:07 Pelger-Huet Anomaly Not Reportable 04/15/20 15:07 Gregorio Rods Not Reportable 04/15/20 15:07 Platelet Estimate Consistent w auto 04/15/20 15:07 Clumped Platelets Not Reportable 04/15/20 15:07 Plt Clumps, EDTA Not Reportable 04/15/20 15:07 Large Platelets Rare 04/15/20 15:07 Giant Platelets Not Reportable 04/15/20 15:07 Platelet Satelliting Not Reportable 04/15/20 15:07 Plt Morphology Comment Not Reportable 04/15/20 15:07 RBC Morphology Not Reportable 04/15/20 15:07 Dimorphic RBCs Not Reportable 04/15/20 15:07 Polychromasia Not Reportable 04/15/20 15:07 Hypochromasia Not Reportable 04/15/20 15:07 Poikilocytosis Not Reportable 04/15/20 15:07 Anisocytosis Not Reportable 04/15/20 15:07 Microcytosis Not Reportable 04/15/20 15:07 Macrocytosis Not Reportable 04/15/20 15:07 Spherocytes Not Reportable 04/15/20 15:07 Pappenheimer Bodies Not Reportable 04/15/20 15:07 Sickle Cells Not Reportable 04/15/20 15:07 Target Cells Not Reportable 04/15/20 15:07 Tear Drop Cells Not Reportable 04/15/20 15:07 Ovalocytes Rare 04/15/20 15:07 Helmet Cells Not Reportable 04/15/20 15:07 [place] Bodies Not Reportable 04/15/20 15:07 [place] Rings Not Reportable 04/15/20 15:07 Ki Cells Not Reportable 04/15/20 15:07 Bite Cells Not Reportable 04/15/20 15:07 Crenated Cell Not Reportable 04/15/20 15:07 Elliptocytes Not Reportable 04/15/20 15:07 Acanthocytes (Spur) Rare 04/15/20 15:07 Rouleaux Not Reportable 04/15/20 15:07 Hemoglobin C Crystals Not Reportable 04/15/20 15:07 Schistocytes Not Reportable 04/15/20 15:07 Malaria parasites Not Reportable 04/15/20 15:07 Balwinder Bodies Not Reportable 04/15/20 15:07 Hem Pathologist Commnt No 04/15/20 15:07 APTT 40.2 Sec. (24.2-36.6) H 04/15/20 15:07 D-Dimer 801.82 ng/mlDDU (0-234) H 04/15/20 15:07 ABG pH 7.423 pH Units (7.350-7.450) 04/15/20 15:35 ABG pCO2 46.4 mm Hg 04/15/20 15:35 ABG pO2 56.2 mm Hg (80.0-90.0) L 04/15/20 15:35 ABG HCO3 29.6 mmol/L (20.0-26.0) H 04/15/20 15:35 ABG O2 Saturation 87.3 % (95.0-99.0) L 04/15/20 15:35 ABG O2 Content 14.0 (0.0-44) 04/15/20 15:35 ABG Base Excess 4.5 mmol/L (-2.0-3.0) H 04/15/20 15:35 ABG Hemoglobin 11.6 gm/dl (14.0-18.0) L 04/15/20 15:35 ABG Carboxyhemoglobin 1.5 % (0.0-5.0) 04/15/20 15:35 ABG Methemoglobin 0.5 % (0.0-1.5) 04/15/20 15:35 Oxyhemoglobin 85.6 % (95.0-99.0) L 04/15/20 15:35 FiO2 21 % 04/15/20 15:35 Sodium 138 mmol/L (137-145) 04/15/20 15:07 Potassium 5.2 mmol/L (3.6-5.0) H 04/15/20 15:07 Chloride 98.6 mmol/L (98-107) 04/15/20 15:07 Carbon Dioxide 32 mmol/L (22-30) H 04/15/20 15:07 Anion Gap 13 mmol/L 04/15/20 15:07 BUN 29 mg/dL (9-20) H 04/15/20 15:07 Creatinine 0.7 mg/dL (0.8-1.3) L 04/15/20 15:07 Estimated GFR > 60 ml/min 04/15/20 15:07 BUN/Creatinine Ratio 41 % 04/15/20 15:07 Glucose 199 mg/dL (75-100) H 04/15/20 15:07 Glucose 204 mg/dL (75-100) H 04/15/20 15:07 Lactic Acid 1.70 mmol/L (0.7-2.0) 04/15/20 17:56 Calcium 8.9 mg/dL (8.4-10.2) 04/15/20 15:07 Ferritin 469.2 ng/mL (30.0-300.0) H 04/15/20 15:07 Total Bilirubin 0.70 mg/dL (0.1-1.2) 04/15/20 15:07 AST 33 units/L (5-40) 04/15/20 15:07 ALT 19 units/L (7-56) 04/15/20 15:07 Alkaline Phosphatase 169 units/L (35-129) H 04/15/20 15:07 Ammonia 24.0 umol/L (25-60) L 04/15/20 15:07 Lactate Dehydrogenase 193 units/L (91-180) H 04/15/20 15:07 Troponin T 0.138 ng/mL (0.00-0.029) H* 04/15/20 15:07 C-Reactive Protein 17.50 mg/dL (0.00-1.30) H 04/15/20 15:07 NT-Pro-B Natriuret Pep 5804 pg/mL (0-900) H 04/15/20 15:07 Total Protein 5.4 g/dL (6.3-8.2) L 04/15/20 15:07 Albumin 2.5 g/dL (3.9-5) L 04/15/20 15:07 Albumin/Globulin Ratio 0.9 % 04/15/20 15:07 Triglycerides 79 mg/dL (2-149) 04/15/20 15:07 Cholesterol 78 mg/dL (50-199) 04/15/20 15:07 LDL Cholesterol Direct 33 mg/dL (50-130) L 04/15/20 15:07 HDL Cholesterol 32 mg/dL (40-59) L 04/15/20 15:07 Cholesterol/HDL Ratio 2.43 % 04/15/20 15:07 Urine Color Yellow (Yellow) 04/15/20 15:04 Urine Turbidity Clear (Clear) 04/15/20 15:04 Urine pH 5.0 (5.0-7.0) 04/15/20 15:04 Ur Specific [place] 1.018 (1.003-1.030) 04/15/20 15:04 Urine Protein 30 mg/dl mg/dL (Negative) 04/15/20 15:04 Urine Glucose (UA) Neg mg/dL (Negative) 04/15/20 15:04 Urine Ketones Neg mg/dL (Negative) 04/15/20 15:04 Urine Blood Neg (Negative) 04/15/20 15:04 Urine Nitrite Neg (Negative) 04/15/20 15:04 Urine Bilirubin Neg (Negative) 04/15/20 15:04 Urine Urobilinogen 4.0 mg/dL (<2.0) 04/15/20 15:04 Ur Leukocyte Esterase Neg (Negative) 04/15/20 15:04 Urine WBC (Auto) 2.0 /HPF (0.0-6.0) 04/15/20 15:04 Urine RBC (Auto) 1.0 /HPF (0.0-6.0) 04/15/20 15:04 Microbiology: Microbiology 04/15/20 15:07 Peripheral/Venous Blood Culture - Preliminary Culture in Progress 04/15/20 15:07 Peripheral/Venous Blood Culture - Preliminary Culture in Progress Campos/IV: Voiding Method Incontinent Active Medications - Current Medications Current Medications: Generic Name Dose Route Start Last Admin Trade Name Freq PRN Reason Stop Dose Admin Acetaminophen 650 mg 04/15/20 22:34 Acetaminophen 325 Mg Tab PO Q4H PRN Pain MILD(1-3)/Fever >100.5/ENRIQUEZ Famotidine 20 mg 04/15/20 23:00 04/16/20 00:51 Famotidine 20 Mg/2 Ml Inj IV 20 mg BID RIKA Administration Heparin Sodium (Porcine) 5,000 unit 04/15/20 23:00 04/16/20 01:19 Heparin 5,000 Unit/1 Ml Vial SUB-Q 5,000 unit Q12HR RIKA Administration Hydromorphone HCl 0.5 mg 04/15/20 22:34 04/16/20 05:52 Hydromorphone 1 Mg/1 Ml Inj IV 0.5 mg Q3H PRN Administration Pain , Severe (7-10) Cefepime HCl 2 gm in 100 mls @ 200 mls/hr 04/15/20 23:00 04/16/20 06:27 Cefepime/Ns 2 Gm/100 Ml IV Infused Q8HR [facility] Infusion Protocol Vancomycin HCl 750 mg/ Sodium 265 mls @ 166.667 mls/hr 04/16/20 10:00 Chloride IV Q12HR [facility] Insulin Human Lispro 0 unit 04/16/20 07:30 04/16/20 08:18 Insulin Lispro 100 Unit/Ml SUB-Q 2 unit ACHS RIKA Administration Protocol Ondansetron HCl 4 mg 04/15/20 22:34 Ondansetron 4 Mg/2 Ml Inj IV Q3H PRN Nausea And Vomiting Oxycodone/Acetaminophen 1 tab 04/15/20 22:34 Oxycodone /Acetaminophen 5-325mg Tab PO Q6H PRN Pain, Moderate (4-6) Sodium Chloride 10 ml 04/16/20 10:00 Sodium Chloride 0.9% 10 Ml Flush Syringe IV BID RIKA Sodium Chloride 10 ml 04/15/20 22:34 Sodium Chloride 0.9% 10 Ml Flush Syringe IV PRN PRN LINE FLUSH
[2020-04-16 08:52] LABS: Alanine Aminotransferase 17 units/L (7-56); Albumin 2.3 g/dL (3.9-5); Blood Urea Nitrogen 30 mg/dL (9-20); Hemolysis Index 8
[2020-04-16 08:57] LABS: BUN/Creatinine Ratio 43
[2020-04-16 09:32] LABS: Creatine Kinase MB 6.2 ng/mL (0.0-4.0)
[2020-04-16] MEDS ORDERED: VANCOMYCIN 750 MG in SODIUM CHLORIDE 0.9% 250ML 250 ML IV SCH (10:00)
[2020-04-16 10:04] LABS: Total Cells Counted 100
[2020-04-16 10:05] LABS: Schistocytes Rare
[2020-04-16 10:06] LABS: Ovalocytes Rare; Platelet Estimate Consistent w Auto
[2020-04-16] MEDS: SODIUM HYPOCHLORITE, DAKIN'S 1/2 STRENGTH (0.25%) 473 ML TOPICAL SOLN TP SCH ×2 (12:16→22:58)
--- NOTE | 2020-04-16 13:41 | Consultation ---
History of Present Illness Consult date: 04/16/20 Chief complaint: Sacral pressure ulcer - History of present illness History of present illness: 64 yo male admitted with sepsis, CHF, DM and hypoxia. I have been asked to consult re pt's sacral and left hip pressure ulcers. Past History Past Medical History: diabetes, heart failure, hypertension Past Surgical History: Other (Not available) Social history: full code, other (Lives in [facility]) Family history: hypertension Medications and Allergies Allergies Allergy/AdvReac Type Severity Reaction Status Date / Time No Known Allergies Allergy Unverified 04/15/20 13:09 Active Meds: Active Medications Acetaminophen (Acetaminophen 325 Mg Tab) 650 mg PO Q4H PRN PRN Reason: Pain MILD(1-3)/Fever >100.5/ENRIQUEZ Famotidine (Famotidine 20 Mg/2 Ml Inj) 20 mg IV BID [facility] Last Admin: 04/16/20 11:13 Dose: 20 mg Documented by: Heparin Sodium (Porcine) (Heparin 5,000 Unit/1 Ml Vial) 5,000 unit SUB-Q Q12HR [facility] Last Admin: 04/16/20 11:13 Dose: 5,000 unit Documented by: Hydromorphone HCl (Hydromorphone 1 Mg/1 Ml Inj) 0.5 mg IV Q3H PRN PRN Reason: Pain , Severe (7-10) Last Admin: 04/16/20 05:52 Dose: 0.5 mg Documented by: Cefepime HCl (Cefepime/Ns 2 Gm/100 Ml) 2 gm in 100 mls @ 200 mls/hr IV Q8HR [facility]; Protocol Last Infusion: 04/16/20 06:27 Dose: Infused Documented by: Vancomycin HCl 750 mg/ Sodium (Chloride) 265 mls @ 166.667 mls/hr IV Q12H [facility] Insulin Human Lispro (Insulin Lispro 100 Unit/Ml) 0 unit SUB-Q ACHS [facility]; Protocol Last Admin: 04/16/20 12:10 Dose: 2 unit Documented by: Ondansetron HCl (Ondansetron 4 Mg/2 Ml Inj) 4 mg IV Q3H PRN PRN Reason: Nausea And Vomiting Oxycodone/Acetaminophen (Oxycodone /Acetaminophen 5-325mg Tab) 1 tab PO Q6H PRN PRN Reason: Pain, Moderate (4-6) Sodium Chloride (Sodium Chloride 0.9% 10 Ml Flush Syringe) 10 ml IV BID [facility] Last Admin: 04/16/20 11:14 Dose: 10 ml Documented by: Sodium Chloride (Sodium Chloride 0.9% 10 Ml Flush Syringe) 10 ml IV PRN PRN PRN Reason: LINE FLUSH Sodium Hypochlorite (Sodium Hypochlorite, [place]'s 1/2 Strength (0.25%) 473 Ml Topical Soln) 1 applic TP BID [facility] Last Admin: 04/16/20 12:16 Dose: 1 tub Documented by: Review of Systems ROS unobtainable: due to endotracheal tube Exam Vital Signs Pulse Resp Pulse Ox 87 18 97 04/15/20 14:32 04/15/20 14:32 04/15/20 14:32 - General physical appearance Positive: well developed, well nourished, no distress - Eyes Positive: PERRL, normal occular movement - ENT Positive: normal pinna, normal nares, normal mucosa, no hearing loss, no congestion - Neck Positive: no masses, no bruits, trachea midline, no venous distension - Respiratory Positive: normal expansion, normal respiratory effort, clear to auscultation - Cardiovascular Rhythm: regular Heart Sounds: Present: S1 & S2. Absent: rub, click - Extremities Extremities: no ischemia, pulses symmetrical, No edema - Breasts Breasts: normal, no mass, no skin changes - Abdomen Abdomen: Present: soft, bowel sounds normal. Absent: tender, distended Hernia: none - Genitourinary Male Genitourinary: normal Female Genitourinary: normal - Integumentary no rash, no growths, no abnormal pigmentation, other (See Wound Care nurses photographs & measurements.) - Musculoskeletal normal gait, normal posture - Psychiatric Psychiatric: other (Intubated and sedated.) Results - Labs 04/16/20 07:45 04/16/20 07:45 Abnormal lab results 04/15/20 04/15/20 04/15/20 Range/Units 15:07 15:07 15:07 WBC 23.2 H (4.5-11.0) K/mm3 Hgb (11.8-15.2) gm/dl Hct (35.5-45.6) % MCV (84-94) fl MCHC 31 L (32-34) % RDW 17.1 H (13.2-15.2) % Seg Neuts % (Manual) 88.0 H (40.0-70.0) % Lymphocytes % (Manual) 5.0 L (13.4-35.0) % Seg Neutrophils # Man 20.4 H (1.8-7.7) K/mm3 Monocytes # (Manual) 0.9 H (0.0-0.8) K/mm3 APTT 40.2 H (24.2-36.6) Sec. D-Dimer (0-234) ng/mlDDU ABG pO2 (80.0-90.0) mm Hg ABG HCO3 (20.0-26.0) mmol/L ABG O2 Saturation (95.0-99.0) % ABG Base Excess (-2.0-3.0) mmol/L ABG Hemoglobin (14.0-18.0) gm/dl Oxyhemoglobin (95.0-99.0) % Potassium 5.2 H (3.6-5.0) mmol/L Carbon Dioxide 32 H (22-30) mmol/L BUN 29 H (9-20) mg/dL Creatinine 0.7 L (0.8-1.3) mg/dL Glucose 199 H (75-100) mg/dL POC Glucose (70-105) mg/dL Hemoglobin A1c (4-6) % Ferritin (30.0-300.0) ng/mL Alkaline Phosphatase 169 H (35-129) units/L Ammonia (25-60) umol/L Lactate Dehydrogenase (91-180) units/L Total Creatine Kinase (55-170) units/L CK-MB (CK-2) (0.0-4.0) ng/mL Troponin T (0.00-0.029) ng/mL C-Reactive Protein (0.00-1.30) mg/dL NT-Pro-B Natriuret Pep (0-900) pg/mL Total Protein 5.4 L (6.3-8.2) g/dL Albumin 2.5 L (3.9-5) g/dL LDL Cholesterol Direct (50-130) mg/dL HDL Cholesterol (40-59) mg/dL 04/15/20 04/15/20 04/15/20 Range/Units 15:07 15:07 15:07 WBC (4.5-11.0) K/mm3 Hgb (11.8-15.2) gm/dl Hct (35.5-45.6) % MCV (84-94) fl MCHC (32-34) % RDW (13.2-15.2) % Seg Neuts % (Manual) (40.0-70.0) % Lymphocytes % (Manual) (13.4-35.0) % Seg Neutrophils # Man (1.8-7.7) K/mm3 Monocytes # (Manual) (0.0-0.8) K/mm3 APTT (24.2-36.6) Sec. D-Dimer 801.82 H (0-234) ng/mlDDU ABG pO2 (80.0-90.0) mm Hg ABG HCO3 (20.0-26.0) mmol/L ABG O2 Saturation (95.0-99.0) % ABG Base Excess (-2.0-3.0) mmol/L ABG Hemoglobin (14.0-18.0) gm/dl Oxyhemoglobin (95.0-99.0) % Potassium (3.6-5.0) mmol/L Carbon Dioxide (22-30) mmol/L BUN (9-20) mg/dL Creatinine (0.8-1.3) mg/dL Glucose 204 H (75-100) mg/dL POC Glucose (70-105) mg/dL Hemoglobin A1c (4-6) % Ferritin (30.0-300.0) ng/mL Alkaline Phosphatase (35-129) units/L Ammonia (25-60) umol/L Lactate Dehydrogenase 193 H (91-180) units/L Total Creatine Kinase (55-170) units/L CK-MB (CK-2) (0.0-4.0) ng/mL Troponin T 0.138 H* (0.00-0.029) ng/mL C-Reactive Protein 17.50 H (0.00-1.30) mg/dL NT-Pro-B Natriuret Pep (0-900) pg/mL Total Protein (6.3-8.2) g/dL Albumin (3.9-5) g/dL LDL Cholesterol Direct 33 L (50-130) mg/dL HDL Cholesterol 32 L (40-59) mg/dL 04/15/20 04/15/20 04/15/20 Range/Units 15:07 15:07 15:07 WBC (4.5-11.0) K/mm3 Hgb (11.8-15.2) gm/dl Hct (35.5-45.6) % MCV (84-94) fl MCHC (32-34) % RDW (13.2-15.2) % Seg Neuts % (Manual) (40.0-70.0) % Lymphocytes % (Manual) (13.4-35.0) % Seg Neutrophils # Man (1.8-7.7) K/mm3 Monocytes # (Manual) (0.0-0.8) K/mm3 APTT (24.2-36.6) Sec. D-Dimer (0-234) ng/mlDDU ABG pO2 (80.0-90.0) mm Hg ABG HCO3 (20.0-26.0) mmol/L ABG O2 Saturation (95.0-99.0) % ABG Base Excess (-2.0-3.0) mmol/L ABG Hemoglobin (14.0-18.0) gm/dl Oxyhemoglobin (95.0-99.0) % Potassium (3.6-5.0) mmol/L Carbon Dioxide (22-30) mmol/L BUN (9-20) mg/dL Creatinine (0.8-1.3) mg/dL Glucose (75-100) mg/dL POC Glucose (70-105) mg/dL Hemoglobin A1c (4-6) % Ferritin 469.2 H (30.0-300.0) ng/mL Alkaline Phosphatase (35-129) units/L Ammonia 24.0 L (25-60) umol/L Lactate Dehydrogenase (91-180) units/L Total Creatine Kinase (55-170) units/L CK-MB (CK-2) (0.0-4.0) ng/mL Troponin T (0.00-0.029) ng/mL C-Reactive Protein (0.00-1.30) mg/dL NT-Pro-B Natriuret Pep 5804 H (0-900) pg/mL Total Protein (6.3-8.2) g/dL Albumin (3.9-5) g/dL LDL Cholesterol Direct (50-130) mg/dL HDL Cholesterol (40-59) mg/dL 04/15/20 04/16/20 04/16/20 Range/Units 15:35 07:45 07:45 WBC 23.7 H (4.5-11.0) K/mm3 Hgb 11.1 L (11.8-15.2) gm/dl Hct 34.9 L (35.5-45.6) % MCV 96 H (84-94) fl MCHC (32-34) % RDW 17.2 H (13.2-15.2) % Seg Neuts % (Manual) 95.0 H (40.0-70.0) % Lymphocytes % (Manual) 5.0 L (13.4-35.0) % Seg Neutrophils # Man 22.5 H (1.8-7.7) K/mm3 Monocytes # (Manual) (0.0-0.8) K/mm3 APTT (24.2-36.6) Sec. D-Dimer (0-234) ng/mlDDU ABG pO2 56.2 L (80.0-90.0) mm Hg ABG HCO3 29.6 H (20.0-26.0) mmol/L ABG O2 Saturation 87.3 L (95.0-99.0) % ABG Base Excess 4.5 H (-2.0-3.0) mmol/L ABG Hemoglobin 11.6 L (14.0-18.0) gm/dl Oxyhemoglobin 85.6 L (95.0-99.0) % Potassium (3.6-5.0) mmol/L Carbon Dioxide (22-30) mmol/L BUN 30 H (9-20) mg/dL Creatinine 0.7 L (0.8-1.3) mg/dL Glucose 191 H (75-100) mg/dL POC Glucose (70-105) mg/dL Hemoglobin A1c (4-6) % Ferritin (30.0-300.0) ng/mL Alkaline Phosphatase 149 H (35-129) units/L Ammonia (25-60) umol/L Lactate Dehydrogenase (91-180) units/L Total Creatine Kinase (55-170) units/L CK-MB (CK-2) (0.0-4.0) ng/mL Troponin T (0.00-0.029) ng/mL C-Reactive Protein (0.00-1.30) mg/dL NT-Pro-B Natriuret Pep (0-900) pg/mL Total Protein 5.9 L (6.3-8.2) g/dL Albumin 2.3 L (3.9-5) g/dL LDL Cholesterol Direct (50-130) mg/dL HDL Cholesterol (40-59) mg/dL 04/16/20 04/16/20 04/16/20 Range/Units 07:45 07:45 08:09 WBC (4.5-11.0) K/mm3 Hgb (11.8-15.2) gm/dl Hct (35.5-45.6) % MCV (84-94) fl MCHC (32-34) % RDW (13.2-15.2) % Seg Neuts % (Manual) (40.0-70.0) % Lymphocytes % (Manual) (13.4-35.0) % Seg Neutrophils # Man (1.8-7.7) K/mm3 Monocytes # (Manual) (0.0-0.8) K/mm3 APTT (24.2-36.6) Sec. D-Dimer (0-234) ng/mlDDU ABG pO2 (80.0-90.0) mm Hg ABG HCO3 (20.0-26.0) mmol/L ABG O2 Saturation (95.0-99.0) % ABG Base Excess (-2.0-3.0) mmol/L ABG Hemoglobin (14.0-18.0) gm/dl Oxyhemoglobin (95.0-99.0) % Potassium (3.6-5.0) mmol/L Carbon Dioxide (22-30) mmol/L BUN (9-20) mg/dL Creatinine (0.8-1.3) mg/dL Glucose (75-100) mg/dL POC Glucose 170 H (70-105) mg/dL Hemoglobin A1c 7.7 H (4-6) % Ferritin (30.0-300.0) ng/mL Alkaline Phosphatase (35-129) units/L Ammonia (25-60) umol/L Lactate Dehydrogenase (91-180) units/L Total Creatine Kinase 256 H (55-170) units/L CK-MB (CK-2) 6.2 H (0.0-4.0) ng/mL Troponin T 0.154 H* (0.00-0.029) ng/mL C-Reactive Protein (0.00-1.30) mg/dL NT-Pro-B Natriuret Pep (0-900) pg/mL Total Protein (6.3-8.2) g/dL Albumin (3.9-5) g/dL LDL Cholesterol Direct (50-130) mg/dL HDL Cholesterol (40-59) mg/dL 04/16/20 Range/Units 12:02 WBC (4.5-11.0) K/mm3 Hgb (11.8-15.2) gm/dl Hct (35.5-45.6) % MCV (84-94) fl MCHC (32-34) % RDW (13.2-15.2) % Seg Neuts % (Manual) (40.0-70.0) % Lymphocytes % (Manual) (13.4-35.0) % Seg Neutrophils # Man (1.8-7.7) K/mm3 Monocytes # (Manual) (0.0-0.8) K/mm3 APTT (24.2-36.6) Sec. D-Dimer (0-234) ng/mlDDU ABG pO2 (80.0-90.0) mm Hg ABG HCO3 (20.0-26.0) mmol/L ABG O2 Saturation (95.0-99.0) % ABG Base Excess (-2.0-3.0) mmol/L ABG Hemoglobin (14.0-18.0) gm/dl Oxyhemoglobin (95.0-99.0) % Potassium (3.6-5.0) mmol/L Carbon Dioxide (22-30) mmol/L BUN (9-20) mg/dL Creatinine (0.8-1.3) mg/dL Glucose (75-100) mg/dL POC Glucose 173 H (70-105) mg/dL Hemoglobin A1c (4-6) % Ferritin (30.0-300.0) ng/mL Alkaline Phosphatase (35-129) units/L Ammonia (25-60) umol/L Lactate Dehydrogenase (91-180) units/L Total Creatine Kinase (55-170) units/L CK-MB (CK-2) (0.0-4.0) ng/mL Troponin T (0.00-0.029) ng/mL C-Reactive Protein (0.00-1.30) mg/dL NT-Pro-B Natriuret Pep (0-900) pg/mL Total Protein (6.3-8.2) g/dL Albumin (3.9-5) g/dL LDL Cholesterol Direct (50-130) mg/dL HDL Cholesterol (40-59) mg/dL Diabetes panel 04/15/20 04/15/20 04/15/20 Range/Units 15:07 15:07 15:07 Sodium 138 (137-145) mmol/L Potassium 5.2 H (3.6-5.0) mmol/L Chloride 98.6 (98-107) mmol/L Carbon Dioxide 32 H (22-30) mmol/L BUN 29 H (9-20) mg/dL Creatinine 0.7 L (0.8-1.3) mg/dL Glucose 199 H 204 H (75-100) mg/dL Hemoglobin A1c (4-6) % Calcium 8.9 (8.4-10.2) mg/dL AST 33 (5-40) units/L ALT 19 (7-56) units/L Alkaline Phosphatase 169 H (35-129) units/L Total Protein 5.4 L (6.3-8.2) g/dL Albumin 2.5 L (3.9-5) g/dL Triglycerides 79 (2-149) mg/dL HDL Cholesterol 32 L (40-59) mg/dL 04/16/20 04/16/20 Range/Units 07:45 07:45 Sodium 140 (137-145) mmol/L Potassium 4.3 (3.6-5.0) mmol/L Chloride 102.2 (98-107) mmol/L Carbon Dioxide 29 (22-30) mmol/L BUN 30 H (9-20) mg/dL Creatinine 0.7 L (0.8-1.3) mg/dL Glucose 191 H (75-100) mg/dL Hemoglobin A1c 7.7 H (4-6) % Calcium 9.0 (8.4-10.2) mg/dL AST 35 (5-40) units/L ALT 17 (7-56) units/L Alkaline Phosphatase 149 H (35-129) units/L Total Protein 5.9 L (6.3-8.2) g/dL Albumin 2.3 L (3.9-5) g/dL Triglycerides (2-149) mg/dL HDL Cholesterol (40-59) mg/dL Calcium panel 04/15/20 04/16/20 Range/Units 15:07 07:45 Calcium 8.9 9.0 (8.4-10.2) mg/dL Albumin 2.5 L 2.3 L (3.9-5) g/dL Pituitary panel 04/15/20 04/15/20 04/16/20 Range/Units 15:07 15:07 07:45 Sodium 138 140 (137-145) mmol/L Potassium 5.2 H 4.3 (3.6-5.0) mmol/L Chloride 98.6 102.2 (98-107) mmol/L Carbon Dioxide 32 H 29 (22-30) mmol/L BUN 29 H 30 H (9-20) mg/dL Creatinine 0.7 L 0.7 L (0.8-1.3) mg/dL Glucose 199 H 204 H 191 H (75-100) mg/dL Calcium 8.9 9.0 (8.4-10.2) mg/dL Adrenal panel 04/15/20 04/15/20 04/16/20 Range/Units 15:07 15:07 07:45 Sodium 138 140 (137-145) mmol/L Potassium 5.2 H 4.3 (3.6-5.0) mmol/L Chloride 98.6 102.2 (98-107) mmol/L Carbon Dioxide 32 H 29 (22-30) mmol/L BUN 29 H 30 H (9-20) mg/dL Creatinine 0.7 L 0.7 L (0.8-1.3) mg/dL Glucose 199 H 204 H 191 H (75-100) mg/dL Calcium 8.9 9.0 (8.4-10.2) mg/dL Total Bilirubin 0.70 0.70 (0.1-1.2) mg/dL AST 33 35 (5-40) units/L ALT 19 17 (7-56) units/L Alkaline Phosphatase 169 H 149 H (35-129) units/L Total Protein 5.4 L 5.9 L (6.3-8.2) g/dL Albumin 2.5 L 2.3 L (3.9-5) g/dL Assessment and Plan - Patient Problems (1) Pressure ulcer of sacral region, stage 4 Current Visit: Yes Status: Acute Plan to address problem: 1) Off loading 2) Specialty bed 3) Optimal nutritional support 4) Debridement is indicated. I called the pt's contact, Arielbishop Bhatt who did not answer. I left a voice message for Mr. Bhatt to call my cell phone or the pt's nursing station to give needed consent for debridement. 5) Agree with Wound care nurse consult.
[2020-04-16] MEDS: VANCOMYCIN 750 MG in SODIUM CHLORIDE 0.9% 250ML 250 ML IV SCH (14:14)
[2020-04-16] MEDS ORDERED: SODIUM CHLORIDE 0.9% 1000 ML 1,000 ML ONE (14:15)
[2020-04-17] MEDS: VANCOMYCIN 750 MG in SODIUM CHLORIDE 0.9% 250ML 250 ML IV SCH ×2 (03:52→13:49)
[2020-04-17] MEDS: HYDROmorphone 1 MG/1 ML INJ IV PRN ×2 (03:53→14:05)
[2020-04-17] MEDS: CEFEPIME/NS 2 GM/100 ML 2 GM/100 ML BAG IV SCH ×3 (05:10→22:38)
[2020-04-17 06:11] LABS: Hematocrit 34.5 % (35.5-45.6); Hemoglobin 11.3 gm/dl (11.8-15.2); Mean Corpuscular HGB Conc 33 % (32-34); Mean Corpuscular Volume 94 fl (84-94); Platelet Count 296 K/mm3 (140-440); Red Blood Count 3.67 M/mm3 (3.65-5.03); Red Cell Distribution Width 17.1 % (13.2-15.2)
[2020-04-17 06:29] LABS: Alanine Aminotransferase 19 units/L (7-56); Albumin 2.4 g/dL (3.9-5); Blood Urea Nitrogen 29 mg/dL (9-20); Calcium 9.1 mg/dL (8.4-10.2); Hemolysis Index 5
[2020-04-17 06:33] LABS: BUN/Creatinine Ratio 41
[2020-04-17 06:34] LABS: Lymphocytes # (Auto) 1.1 K/mm3 (1.2-5.4); Monocytes # (Auto) 0.9 K/mm3 (0.0-0.8); Monocytes % (Auto) 4.1 % (0.0-7.3)
[2020-04-17] MEDS: FAMOTIDINE 20 MG/2 ML INJ IV SCH (09:57)
[2020-04-17] MEDS: HEPARIN 5,000 UNIT/1 ML VIAL SUB-Q SCH ×2 (09:57→21:44)
[2020-04-17] MEDS: INSULIN LISPRO 100 UNIT/ML SUB-Q SCH ×4 (10:05→22:35)
[2020-04-17] MEDS: SODIUM HYPOCHLORITE, DAKIN'S 1/2 STRENGTH (0.25%) 473 ML TOPICAL SOLN TP SCH ×2 (10:09→21:45)
--- NOTE | 2020-04-17 10:23 | Progress Note ---
Assessment and Plan Assessment and plan: --COVID-19 test; negative --Acute metabolic encephalopathy; Multifactorial, closely monitor CT head without contrast; encephalomalacia No acute abnormality noted Supportive care --Congestive heart failure; unknown EF Antifailure medications, diuretics Follow echocardiogram for LV function and ejection fraction Cardiology consult if needed Input output monitoring --Stage IV sacral decubitus ulcer; Evaluated by wound surgeon Dr. Bahena Planning surgical wound debridement --Decubitus ulcers/infected leg ulcers Empiric IV antibiotics, wound care Wound surgeon consult if needed for possible debridement Supportive care --Sepsis secondary to multiple infected wounds Follow cultures, continue antibiotics Follow wound care recommendations ID consult if needed --PUI; COVID-19 test is negative DC isolation, freeman PCR test is negative --Elevated D-dimers; CTA chest negative for PE Check lower extremity Doppler to evaluate for DVT --Severe protein calorie malnutrition; Albumin 2.5, BMI 19.4 Treat the underlying cause Nutrition supplements Nutrition consult --Type 2 diabetes mellitus/hyperglycemia Accu-Chek sliding scale coverage ADA diet Insulin as needed, check A1c --DVT prophylaxis; Lovenox --Full CODE STATUS We will closely monitor the patient and adjust the management as needed Plan of care reviewed with the patient and his nurse History Interval history: I have seen and examined the patient at the bedside Patient's chart and medications reviewed Patient feels slightly better Underwent echocardiogram No new complaints Hospitalist Physical - Constitutional Vitals: Temp Pulse Resp BP Pulse Ox 97.8 F 82 16 115/64 94 04/17/20 04:16 04/17/20 04:16 04/17/20 04:16 04/17/20 04:16 04/17/20 08:41 General appearance: Present: mild distress, cachectic - EENT Eyes: Present: PERRL, EOM intact - Neck Neck: Present: supple, normal ROM - Respiratory Respiratory effort: normal Respiratory: bilateral: diminished, rales, negative: rhonchi, wheezing - Cardiovascular Rhythm: regular Heart Sounds: Present: S1 & S2 - Extremities Extremities: no ischemia Extremity abnormal: edema - Abdominal General gastrointestinal: soft, non-tender, non-distended, normal bowel sounds - Integumentary Integumentary: Present: clear, warm - Psychiatric Psychiatric: appropriate mood/affect, cooperative - Neurologic Neurologic: moves all extremities HEART Score - HEART Score Troponin: Troponin T 0.154 ng/mL (0.00-0.029) H* 04/16/20 07:45 Results - Labs CBC & Chem 7: 04/17/20 05:24 04/17/20 05:24 Labs: Laboratory Last Values WBC 21.1 K/mm3 (4.5-11.0) H 04/17/20 05:24 RBC 3.67 M/mm3 (3.65-5.03) 04/17/20 05:24 Hgb 11.3 gm/dl (11.8-15.2) L 04/17/20 05:24 Hct 34.5 % (35.5-45.6) L 04/17/20 05:24 MCV 94 fl (84-94) 04/17/20 05:24 MCH 31 pg (28-32) 04/17/20 05:24 MCHC 33 % (32-34) 04/17/20 05:24 RDW 17.1 % (13.2-15.2) H 04/17/20 05:24 Plt Count 296 K/mm3 (140-440) 04/17/20 05:24 Lymph % (Auto) 5.0 % (13.4-35.0) L 04/17/20 05:24 Fisher % (Auto) 4.1 % (0.0-7.3) 04/17/20 05:24 Eos % (Auto) 0.0 % (0.0-4.3) 04/17/20 05:24 Baso % (Auto) 0.0 % (0.0-1.8) 04/17/20 05:24 Lymph # (Auto) 1.1 K/mm3 (1.2-5.4) L 04/17/20 05:24 Fisher # (Auto) 0.9 K/mm3 (0.0-0.8) H 04/17/20 05:24 Eos # (Auto) 0.0 K/mm3 (0.0-0.4) 04/17/20 05:24 Baso # (Auto) 0.0 K/mm3 (0.0-0.1) 04/17/20 05:24 Add Manual Diff Complete 04/16/20 07:45 Total Counted 100 04/16/20 07:45 Seg Neutrophils % 90.9 % (40.0-70.0) H 04/17/20 05:24 Seg Neuts % (Manual) 95.0 % (40.0-70.0) H 04/16/20 07:45 Band Neutrophils % 3.0 % 04/15/20 15:07 Lymphocytes % (Manual) 5.0 % (13.4-35.0) L 04/16/20 07:45 Monocytes % (Manual) 4.0 % (0.0-7.3) 04/15/20 15:07 Nucleated RBC % Not Reportable 04/16/20 07:45 Seg Neutrophils # 19.2 K/mm3 (1.8-7.7) H 04/17/20 05:24 Seg Neutrophils # Man 22.5 K/mm3 (1.8-7.7) H 04/16/20 07:45 Band Neutrophils # 0.0 K/mm3 04/16/20 07:45 Lymphocytes # (Manual) 1.2 K/mm3 (1.2-5.4) 04/16/20 07:45 Abs React Lymphs (Man) 0.0 K/mm3 04/16/20 07:45 Monocytes # (Manual) 0.0 K/mm3 (0.0-0.8) 04/16/20 07:45 Eosinophils # (Manual) 0.0 K/mm3 (0.0-0.4) 04/16/20 07:45 Basophils # (Manual) 0.0 K/mm3 (0.0-0.1) 04/16/20 07:45 Metamyelocytes # 0.0 K/mm3 04/16/20 07:45 Myelocytes # 0.0 K/mm3 04/16/20 07:45 Promyelocytes # 0.0 K/mm3 04/16/20 07:45 Blast Cells # 0.0 K/mm3 04/16/20 07:45 WBC Morphology Not Reportable 04/16/20 07:45 Hypersegmented Neuts Not Reportable 04/16/20 07:45 Hyposegmented Neuts Not Reportable 04/16/20 07:45 Hypogranular Neuts Not Reportable 04/16/20 07:45 Smudge Cells Not Reportable 04/16/20 07:45 Toxic Granulation Not Reportable 04/16/20 07:45 Toxic Vacuolation Not Reportable 04/16/20 07:45 Dohle Bodies Not Reportable 04/16/20 07:45 Pelger-Huet Anomaly Not Reportable 04/16/20 07:45 Gregorio Rods Not Reportable 04/16/20 07:45 Platelet Estimate Consistent w auto 04/16/20 07:45 Clumped Platelets Not Reportable 04/16/20 07:45 Plt Clumps, EDTA Not Reportable 04/16/20 07:45 Large Platelets Not Reportable 04/16/20 07:45 Giant Platelets Not Reportable 04/16/20 07:45 Platelet Satelliting Not Reportable 04/16/20 07:45 Plt Morphology Comment Not Reportable 04/16/20 07:45 RBC Morphology Not Reportable 04/16/20 07:45 Dimorphic RBCs Not Reportable 04/16/20 07:45 Polychromasia Not Reportable 04/16/20 07:45 Hypochromasia Not Reportable 04/16/20 07:45 Poikilocytosis Not Reportable 04/16/20 07:45 Anisocytosis Not Reportable 04/16/20 07:45 Microcytosis Not Reportable 04/16/20 07:45 Macrocytosis Not Reportable 04/16/20 07:45 Spherocytes Not Reportable 04/16/20 07:45 Pappenheimer Bodies Not Reportable 04/16/20 07:45 Sickle Cells Not Reportable 04/16/20 07:45 Target Cells Not Reportable 04/16/20 07:45 Tear Drop Cells Not Reportable 04/16/20 07:45 Ovalocytes Rare 04/16/20 07:45 Helmet Cells Not Reportable 04/16/20 07:45 [place] Bodies Not Reportable 04/16/20 07:45 Frannie Rings Not Reportable 04/16/20 07:45 [place] Cells Not Reportable 04/16/20 07:45 Bite Cells Not Reportable 04/16/20 07:45 Crenated Cell Not Reportable 04/16/20 07:45 Elliptocytes Not Reportable 04/16/20 07:45 Acanthocytes (Spur) Not Reportable 04/16/20 07:45 Rouleaux Not Reportable 04/16/20 07:45 Hemoglobin C Crystals Not Reportable 04/16/20 07:45 Schistocytes Rare 04/16/20 07:45 Malaria parasites Not Reportable 04/16/20 07:45 Balwinder Bodies Not Reportable 04/16/20 07:45 Hem Pathologist Commnt No 04/16/20 07:45 APTT 40.2 Sec. (24.2-36.6) H 04/15/20 15:07 D-Dimer 801.82 ng/mlDDU (0-234) H 04/15/20 15:07 ABG pH 7.423 pH Units (7.350-7.450) 04/15/20 15:35 ABG pCO2 46.4 mm Hg 04/15/20 15:35 ABG pO2 56.2 mm Hg (80.0-90.0) L 04/15/20 15:35 ABG HCO3 29.6 mmol/L (20.0-26.0) H 04/15/20 15:35 ABG O2 Saturation 87.3 % (95.0-99.0) L 04/15/20 15:35 ABG O2 Content 14.0 (0.0-44) 04/15/20 15:35 ABG Base Excess 4.5 mmol/L (-2.0-3.0) H 04/15/20 15:35 ABG Hemoglobin 11.6 gm/dl (14.0-18.0) L 04/15/20 15:35 ABG Carboxyhemoglobin 1.5 % (0.0-5.0) 04/15/20 15:35 ABG Methemoglobin 0.5 % (0.0-1.5) 04/15/20 15:35 Oxyhemoglobin 85.6 % (95.0-99.0) L 04/15/20 15:35 FiO2 21 % 04/15/20 15:35 Sodium 138 mmol/L (137-145) 04/17/20 05:24 Potassium 4.4 mmol/L (3.6-5.0) 04/17/20 05:24 Chloride 101.4 mmol/L (98-107) 04/17/20 05:24 Carbon Dioxide 28 mmol/L (22-30) 04/17/20 05:24 Anion Gap 13 mmol/L 04/17/20 05:24 BUN 29 mg/dL (9-20) H 04/17/20 05:24 Creatinine 0.7 mg/dL (0.8-1.3) L 04/17/20 05:24 Estimated GFR > 60 ml/min 04/17/20 05:24 BUN/Creatinine Ratio 41 % 04/17/20 05:24 Glucose 218 mg/dL (75-100) H 04/17/20 05:24 POC Glucose 187 mg/dL (70-105) H 04/17/20 07:40 Hemoglobin A1c 7.7 % (4-6) H 04/16/20 07:45 Lactic Acid 1.70 mmol/L (0.7-2.0) 04/15/20 17:56 Calcium 9.1 mg/dL (8.4-10.2) 04/17/20 05:24 Magnesium 2.00 mg/dL (1.7-2.3) 04/17/20 05:24 Ferritin 469.2 ng/mL (30.0-300.0) H 04/15/20 15:07 Total Bilirubin 0.80 mg/dL (0.1-1.2) 04/17/20 05:24 AST 38 units/L (5-40) 04/17/20 05:24 ALT 19 units/L (7-56) 04/17/20 05:24 Alkaline Phosphatase 158 units/L (35-129) H 04/17/20 05:24 Ammonia 24.0 umol/L (25-60) L 04/15/20 15:07 Lactate Dehydrogenase 193 units/L (91-180) H 04/15/20 15:07 Total Creatine Kinase 256 units/L (55-170) H 04/16/20 07:45 CK-MB (CK-2) 6.2 ng/mL (0.0-4.0) H 04/16/20 07:45 CK-MB (CK-2) Rel Index 2.4 (0-4) 04/16/20 07:45 Troponin T 0.154 ng/mL (0.00-0.029) H* 04/16/20 07:45 C-Reactive Protein 17.50 mg/dL (0.00-1.30) H 04/15/20 15:07 NT-Pro-B Natriuret Pep 5804 pg/mL (0-900) H 04/15/20 15:07 Total Protein 5.8 g/dL (6.3-8.2) L 04/17/20 05:24 Albumin 2.4 g/dL (3.9-5) L 04/17/20 05:24 Albumin/Globulin Ratio 0.7 % 04/17/20 05:24 Triglycerides 79 mg/dL (2-149) 04/15/20 15:07 Cholesterol 78 mg/dL (50-199) 04/15/20 15:07 LDL Cholesterol Direct 33 mg/dL (50-130) L 04/15/20 15:07 HDL Cholesterol 32 mg/dL (40-59) L 04/15/20 15:07 Cholesterol/HDL Ratio 2.43 % 04/15/20 15:07 Procalcitonin 0.16 ng/mL (<0.15) 04/15/20 15:07 Urine Color Yellow (Yellow) 04/15/20 15:04 Urine Turbidity Clear (Clear) 04/15/20 15:04 Urine pH 5.0 (5.0-7.0) 04/15/20 15:04 Ur Specific [place] 1.018 (1.003-1.030) 04/15/20 15:04 Urine Protein 30 mg/dl mg/dL (Negative) 04/15/20 15:04 Urine Glucose (UA) Neg mg/dL (Negative) 04/15/20 15:04 Urine Ketones Neg mg/dL (Negative) 04/15/20 15:04 Urine Blood Neg (Negative) 04/15/20 15:04 Urine Nitrite Neg (Negative) 04/15/20 15:04 Urine Bilirubin Neg (Negative) 04/15/20 15:04 Urine Urobilinogen 4.0 mg/dL (<2.0) 04/15/20 15:04 Ur Leukocyte Esterase Neg (Negative) 04/15/20 15:04 Urine WBC (Auto) 2.0 /HPF (0.0-6.0) 04/15/20 15:04 Urine RBC (Auto) 1.0 /HPF (0.0-6.0) 04/15/20 15:04 Coronavirus (PCR) Negative (Negative) 04/16/20 Unknown Microbiology: Microbiology 04/15/20 15:07 Peripheral/Venous Blood Culture - Preliminary 04/15/20 15:07 Peripheral/Venous Blood Culture - Preliminary NO GROWTH AFTER 24 HOURS 04/15/20 15:04 Urine,Catheterized - Straight Catheter Urine Culture - Preliminary NO GROWTH AFTER 24 HOURS Campos/IV: Voiding Method Urinal Active Medications - Current Medications Current Medications: Generic Name Dose Route Start Last Admin Trade Name Freq PRN Reason Stop Dose Admin Acetaminophen 650 mg 04/15/20 22:34 Acetaminophen 325 Mg Tab PO Q4H PRN Pain MILD(1-3)/Fever >100.5/ENRIQUEZ Famotidine 20 mg 04/15/20 23:00 04/17/20 09:57 Famotidine 20 Mg/2 Ml Inj IV 20 mg BID RIKA Administration Heparin Sodium (Porcine) 5,000 unit 04/15/20 23:00 04/17/20 09:57 Heparin 5,000 Unit/1 Ml Vial SUB-Q 5,000 unit Q12HR RIKA Administration Hydromorphone HCl 0.5 mg 04/15/20 22:34 04/17/20 03:53 Hydromorphone 1 Mg/1 Ml Inj IV 0.5 mg Q3H PRN Administration Pain , Severe (7-10) Cefepime HCl 2 gm in 100 mls @ 200 mls/hr 04/15/20 23:00 04/17/20 05:10 Cefepime/Ns 2 Gm/100 Ml IV 200 mls/hr Q8HR RIKA Administration Protocol Vancomycin HCl 750 mg/ Sodium 265 mls @ 166.667 mls/hr 04/16/20 14:00 04/17/20 03:52 Chloride IV 166.667 mls/hr Q12H RIKA Administration Insulin Human Lispro 0 unit 04/16/20 07:30 04/17/20 10:05 Insulin Lispro 100 Unit/Ml SUB-Q 2 unit ACHS RIKA Administration Protocol Ondansetron HCl 4 mg 04/15/20 22:34 Ondansetron 4 Mg/2 Ml Inj IV Q3H PRN Nausea And Vomiting Oxycodone/Acetaminophen 1 tab 04/15/20 22:34 Oxycodone /Acetaminophen 5-325mg Tab PO Q6H PRN Pain, Moderate (4-6) Sodium Chloride 10 ml 04/16/20 10:00 04/17/20 10:10 Sodium Chloride 0.9% 10 Ml Flush Syringe IV 10 ml BID RIKA Administration Sodium Chloride 10 ml 04/15/20 22:34 Sodium Chloride 0.9% 10 Ml Flush Syringe IV PRN PRN LINE FLUSH Sodium Hypochlorite 1 applic 04/16/20 11:00 04/17/20 10:09 Sodium Hypochlorite, Dakin's 1/2 Strength (0.25%) 473 Ml Topical Soln TP 1 applicatio BID RIKA Administration
--- NOTE | 2020-04-17 15:20 | Consultation ---
History of Present Illness Consult date: 04/17/20 Requesting physician: CRYSTAL CUNNINGHAM Consult reason: other (CMP) History of present illness: The pt is a 64-year-old male [facility] resident with a past medical history of reported HF, ? atrial fibrillation, HTN, DM, decubitus ulcers. He is previously unknown to our practice. He is confused on evaluation and thus HPI is obtained per the chart. Pt presented from intermediate for evaluation of low oxygen saturations and altered mental status. Fever present on admission. His oxygen levels were in the 80s and was placed on 3 L nasal cannula oxygen with saturations improving to 94%. Patient has multiple decubitus ulcers on sacrum and both of the legs and per general surgery team, will require debridement pending they are able to obtain family consent. Pt underwent tte which showed EF 15-20% and thus cardiology has been consulted. Tele reviewed - pt is in apparent AFib with CVR, 12-lead ECG is pending. Past History Past Medical History: diabetes, heart failure, hypertension Past Surgical History: Other (Not available) Social history: full code, other (Lives in [facility]) Family history: hypertension Medications and Allergies Allergies Allergy/AdvReac Type Severity Reaction Status Date / Time No Known Allergies Allergy Unverified 04/15/20 13:09 Active Meds: Active Medications Acetaminophen (Acetaminophen 325 Mg Tab) 650 mg PO Q4H PRN PRN Reason: Pain MILD(1-3)/Fever >100.5/ENRIQUEZ Famotidine (Famotidine 20 Mg Tab) 20 mg PO BID RIKA Heparin Sodium (Porcine) (Heparin 5,000 Unit/1 Ml Vial) 5,000 unit SUB-Q Q12HR RIKA Last Admin: 04/17/20 09:57 Dose: 5,000 unit Documented by: Hydromorphone HCl (Hydromorphone 1 Mg/1 Ml Inj) 0.5 mg IV Q3H PRN PRN Reason: Pain , Severe (7-10) Last Admin: 04/17/20 14:05 Dose: 0.5 mg Documented by: Cefepime HCl (Cefepime/Ns 2 Gm/100 Ml) 2 gm in 100 mls @ 200 mls/hr IV Q8HR RIKA; Protocol Last Admin: 04/17/20 13:56 Dose: 200 mls/hr Documented by: Vancomycin HCl 750 mg/ Sodium (Chloride) 265 mls @ 166.667 mls/hr IV Q12H [facility] Last Admin: 04/17/20 13:49 Dose: 166.667 mls/hr Documented by: Insulin Human Lispro (Insulin Lispro 100 Unit/Ml) 0 unit SUB-Q ACHS [facility]; Protocol Last Admin: 04/17/20 14:22 Dose: 2 unit Documented by: Ondansetron HCl (Ondansetron 4 Mg/2 Ml Inj) 4 mg IV Q3H PRN PRN Reason: Nausea And Vomiting Oxycodone/Acetaminophen (Oxycodone /Acetaminophen 5-325mg Tab) 1 tab PO Q6H PRN PRN Reason: Pain, Moderate (4-6) Sodium Chloride (Sodium Chloride 0.9% 10 Ml Flush Syringe) 10 ml IV BID [facility] Last Admin: 04/17/20 10:10 Dose: 10 ml Documented by: Sodium Chloride (Sodium Chloride 0.9% 10 Ml Flush Syringe) 10 ml IV PRN PRN PRN Reason: LINE FLUSH Sodium Hypochlorite (Sodium Hypochlorite, Dakin's 1/2 Strength (0.25%) 473 Ml Topical Soln) 1 applic TP BID [facility] Last Admin: 04/17/20 10:09 Dose: 1 applicatio Documented by: Review of Systems ROS unobtainable: due to mental status Physical Examination Vital Signs Pulse Resp Pulse Ox 87 18 97 04/15/20 14:32 04/15/20 14:32 04/15/20 14:32 General appearance: no acute distress, other (confused) HEENT: Positive: PERRL Neck: Positive: neck supple, trachea midline Cardiac: Positive: Reg Rate and Rhythm, S1/S2 Lungs: Positive: Decreased Breath Sounds Abdomen: Negative: Tender Skin: Positive: Wound (decubitus ulcer). Negative: Rash Results 04/17/20 05:24 04/17/20 05:24 Cardiac Enzymes 04/17/20 Range/Units 05:24 AST 38 (5-40) units/L CBC 04/17/20 Range/Units 05:24 WBC 21.1 H (4.5-11.0) K/mm3 RBC 3.67 (3.65-5.03) M/mm3 Hgb 11.3 L (11.8-15.2) gm/dl Hct 34.5 L (35.5-45.6) % Plt Count 296 (140-440) K/mm3 Lymph # (Auto) 1.1 L (1.2-5.4) K/mm3 Drew # (Auto) 0.9 H (0.0-0.8) K/mm3 Eos # (Auto) 0.0 (0.0-0.4) K/mm3 Baso # (Auto) 0.0 (0.0-0.1) K/mm3 Comprehensive Metabolic Panel 04/17/20 Range/Units 05:24 Sodium 138 (137-145) mmol/L Potassium 4.4 (3.6-5.0) mmol/L Chloride 101.4 (98-107) mmol/L Carbon Dioxide 28 (22-30) mmol/L BUN 29 H (9-20) mg/dL Creatinine 0.7 L (0.8-1.3) mg/dL Glucose 218 H (75-100) mg/dL Calcium 9.1 (8.4-10.2) mg/dL AST 38 (5-40) units/L ALT 19 (7-56) units/L Alkaline Phosphatase 158 H (35-129) units/L Total Protein 5.8 L (6.3-8.2) g/dL Albumin 2.4 L (3.9-5) g/dL - Imaging and Cardiology Echo: report reviewed EKG: pending EKG interpretations - Telemetry EKG Rhythm: Atrial Fibrillation Assessment and Plan tte reviewed - EF 15-20%, LV mildly dilated. Unknown etiology or chronicity of CMP. No apparent evidence of acutely decompensated HF. tele reviewed - pt is in apparent AFib with CVR, 12-lead ECG is pending. Await ECG. Initiate Coreg and lisinopril. Consider initiation of systemic AC in regards to AFib if no contraindications - pt is pending possible debridement of ulcers. Will likely proceed with conservative cardiac management given altered mental status, chronic debility and multiple co-morbidities. Further recommendations to follow per hospital course. The patient has been seen in conjunction with Dr. Mera Mehta who agrees with the assessment and plan of care. - Patient Problems (1) AMS (altered mental status) Current Visit: Yes Status: Acute (2) Pressure ulcer of sacral region, stage 4 Current Visit: Yes Status: Chronic (3) Sepsis Current Visit: Yes Status: Suspected Qualifiers: Severe sepsis shock status: without septic shock (4) Hypoxia Current Visit: Yes Status: Acute (5) Cardiomyopathy Current Visit: Yes Status: Chronic (6) Atrial fibrillation Current Visit: Yes Status: Chronic (7) HTN (hypertension) Current Visit: Yes Status: Chronic (8) Diabetes Current Visit: Yes Status: Chronic
--- NOTE | 2020-04-17 17:20 | Progress Note ---
Assessment and Plan - Patient Problems (1) Pressure ulcer of sacral region, stage 4 Current Visit: Yes Status: Chronic Plan to address problem: 1) Awaiting consent for debridement. 2) Continue off loading 3) Continue local wound care 4) Optimize nutritional status Subjective Date of service: 04/17/20 Patient Reports: Positive: no new complaints, other (Pt's friend has not called in yet to give consent.) Objective Vital Signs - 12hr 04/17/20 04/17/20 04/17/20 08:41 11:50 16:03 Temperature 98.2 F 99.1 F Pulse Rate 91 H 87 Respiratory 18 16 Rate Blood Pressure 116/65 Blood Pressure 134/59 [Right] O2 Sat by Pulse 94 96 96 Oximetry - Integumentary other (No change in sacral and hip decubiti) - Labs 04/17/20 05:24 04/17/20 05:24 Diabetes panel 04/17/20 Range/Units 05:24 Sodium 138 (137-145) mmol/L Potassium 4.4 (3.6-5.0) mmol/L Chloride 101.4 (98-107) mmol/L Carbon Dioxide 28 (22-30) mmol/L BUN 29 H (9-20) mg/dL Creatinine 0.7 L (0.8-1.3) mg/dL Glucose 218 H (75-100) mg/dL Calcium 9.1 (8.4-10.2) mg/dL AST 38 (5-40) units/L ALT 19 (7-56) units/L Alkaline Phosphatase 158 H (35-129) units/L Total Protein 5.8 L (6.3-8.2) g/dL Albumin 2.4 L (3.9-5) g/dL Calcium panel 04/17/20 Range/Units 05:24 Calcium 9.1 (8.4-10.2) mg/dL Albumin 2.4 L (3.9-5) g/dL Pituitary panel 04/17/20 Range/Units 05:24 Sodium 138 (137-145) mmol/L Potassium 4.4 (3.6-5.0) mmol/L Chloride 101.4 (98-107) mmol/L Carbon Dioxide 28 (22-30) mmol/L BUN 29 H (9-20) mg/dL Creatinine 0.7 L (0.8-1.3) mg/dL Glucose 218 H (75-100) mg/dL Calcium 9.1 (8.4-10.2) mg/dL Adrenal panel 04/17/20 Range/Units 05:24 Sodium 138 (137-145) mmol/L Potassium 4.4 (3.6-5.0) mmol/L Chloride 101.4 (98-107) mmol/L Carbon Dioxide 28 (22-30) mmol/L BUN 29 H (9-20) mg/dL Creatinine 0.7 L (0.8-1.3) mg/dL Glucose 218 H (75-100) mg/dL Calcium 9.1 (8.4-10.2) mg/dL Total Bilirubin 0.80 (0.1-1.2) mg/dL AST 38 (5-40) units/L ALT 19 (7-56) units/L Alkaline Phosphatase 158 H (35-129) units/L Total Protein 5.8 L (6.3-8.2) g/dL Albumin 2.4 L (3.9-5) g/dL
[2020-04-17] MEDS ORDERED: HALOPERIDOL LACTATE 5 MG/1 ML INJ IM ONE (21:17)
[2020-04-17] MEDS: carvediloL 3.125 MG TAB PO SCH (21:44)
[2020-04-17] MEDS: FAMOTIDINE 20 MG TAB PO SCH (21:44)
[2020-04-18] MEDS: HYDROmorphone 1 MG/1 ML INJ IV PRN ×2 (01:56→09:27)
[2020-04-18] MEDS: VANCOMYCIN 750 MG in SODIUM CHLORIDE 0.9% 250ML 250 ML IV SCH ×2 (01:57→18:51)
[2020-04-18] MEDS: CEFEPIME/NS 2 GM/100 ML 2 GM/100 ML BAG IV SCH ×3 (05:30→23:36)
[2020-04-18] MEDS: FAMOTIDINE 20 MG TAB PO SCH ×2 (09:26→23:35)
[2020-04-18] MEDS: LISINOPRIL 5 MG TAB PO SCH (09:27)
[2020-04-18] MEDS: HEPARIN 5,000 UNIT/1 ML VIAL SUB-Q SCH ×2 (09:27→23:37)
[2020-04-18] MEDS: INSULIN LISPRO 100 UNIT/ML SUB-Q SCH ×4 (09:28→23:37)
[2020-04-18] MEDS: SODIUM HYPOCHLORITE, DAKIN'S 1/2 STRENGTH (0.25%) 473 ML TOPICAL SOLN TP SCH ×2 (09:28→23:36)
[2020-04-18] MEDS: carvediloL 3.125 MG TAB PO SCH ×2 (09:29→23:36)
--- NOTE | 2020-04-18 10:25 | Progress Note ---
Assessment and Plan tte reviewed - EF 15-20%, LV mildly dilated. Unknown etiology or chronicity of CMP. No apparent evidence of acutely decompensated HF. tele reviewed - in AFib/AFlutter HR 100s - 160s overnight, HR increases with agitation. BP variable. Optimize HR - initiate IV amio. Cont Coreg and lisinopril as tolerated. Recommend initiation of heparin gtt in regards to AFib if no contraindications - pt is pending possible debridement of ulcers. Will likely proceed with conservative cardiac management given altered mental status, chronic debility and multiple co-morbidities. Further recommendations to follow per hospital course. The patient has been seen in conjunction with Dr. Mera Mehta who agrees with the assessment and plan of care. - Patient Problems (1) AMS (altered mental status) Current Visit: Yes Status: Acute (2) Pressure ulcer of sacral region, stage 4 Current Visit: Yes Status: Chronic (3) Sepsis Current Visit: Yes Status: Suspected Qualifiers: Severe sepsis shock status: without septic shock (4) Atrial fibrillation with RVR Current Visit: Yes Status: Acute (5) Hypoxia Current Visit: Yes Status: Acute (6) Cardiomyopathy Current Visit: Yes Status: Chronic (7) HTN (hypertension) Current Visit: Yes Status: Chronic (8) Diabetes Current Visit: Yes Status: Chronic Subjective Date of service: 04/18/20 Principal diagnosis: AMS Interval history: pt resting in bed, remains confused, intermittently agitated overnight. tele reviewed - in AFib/AFlutter HR 100s - 160s overnight, HR increases with agitation. Objective Last Vital Signs Temp 98.1 F 04/18/20 04:40 Pulse 78 04/18/20 04:40 Resp 18 04/18/20 04:40 BP 128/62 04/18/20 06:24 Pulse Ox 97 04/18/20 04:40 - Physical Examination General: Other (confused) HEENT: Positive: PERRL Neck: Positive: neck supple, trachea midline Cardiac: Positive: irregularly irregular, S1/S2, Tachycardia Lungs: Positive: Decreased Breath Sounds Neuro: Positive: Other (confused) Abdomen: Negative: Tender Skin: Positive: Wound (decubitus ulcer). Negative: Rash - Imaging and Cardiology EKG: report reviewed, image reviewed Echo: report reviewed (EF 15-20%, LV mildly dilated) - Telemetry EKG Rhythm: Atrial Fibrillation
[2020-04-18] MEDS ORDERED: AMIODARONE 150 MG in DEXTROSE 5% IN WATER 97 ML IV ONE (14:00)
[2020-04-18] MEDS: AMIODARONE 900 MG in DEXTROSE 5% IN WATER 482 ML IV SCH (14:38)
--- NOTE | 2020-04-18 17:23 | Progress Note ---
Assessment and Plan Assessment and plan: --COVID-19 test; negative --A. fib with RVR; Cardiology started amiodarone drip Transfer the patient from medical floor to telemetry For close monitoring, continue amiodarone, Coreg Decision of long-term anticoagulants per cardiology --Severe cardiomyopathy; EF 15 to 20% New onset, patient needs ischemia work-up, if not done already Cardiology following, cont Antifailure medications, diuretics --Stage IV sacral decubitus ulcer; Evaluated by wound surgeon Dr. Bahena Planning surgical wound debridement --Decubitus ulcers/infected leg ulcers Empiric IV antibiotics, wound care Wound surgeon consult if needed for possible debridement Supportive care --Sepsis secondary to multiple infected wounds Follow cultures, continue antibiotics Follow wound care recommendations ID consult if needed --Elevated D-dimers; CTA chest negative for PE Check lower extremity Doppler to evaluate for DVT --Severe protein calorie malnutrition; Albumin 2.5, BMI 19.4, Treat the underlying cause Nutrition supplements, Nutrition consult --Type 2 diabetes mellitus/hyperglycemia Accu-Chek sliding scale coverage ADA diet Insulin as needed, A1c 7.7% --DVT prophylaxis;Lovenox --Full CODE STATUS We will closely monitor the patient and adjust the management as needed Plan of care reviewed with the patient and his nurse Transfer the patient from third floor to telemetry unit for close monitoring Consults and recommendations noted and appreciated History Interval history: I have seen and examined the patient at the bedside Patient has severe cardiomyopathy ejection fraction of 15 to 20% on echo 04/17/2020 On antifailure medication, cardiology consulted Today patient is in A. fib with rapid ventricular rate Cardiology evaluated the patient started on amiodarone drip Patient is being transferred to telemetry Patient is confused minimally communicative Vital signs noted Hospitalist Physical - Constitutional Vitals: Temp Pulse Resp BP Pulse Ox 98.1 F 79 18 117/65 97 04/18/20 14:02 04/18/20 14:59 04/18/20 14:59 04/18/20 14:59 04/18/20 14:59 General appearance: Present: no acute distress, other (confused) - EENT Eyes: Present: PERRL, EOM intact - Neck Neck: Present: supple, normal ROM - Respiratory Respiratory effort: normal Respiratory: bilateral: diminished, negative: rales, rhonchi, wheezing - Cardiovascular Rhythm: regular Heart Sounds: Present: S1 & S2 - Extremities Extremities: no ischemia, No edema - Abdominal General gastrointestinal: soft, non-tender, non-distended, normal bowel sounds - Integumentary Integumentary: Present: clear, warm - Psychiatric Psychiatric: appropriate mood/affect, cooperative - Neurologic Neurologic: CNII-XII intact, moves all extremities HEART Score - HEART Score Troponin: Troponin T 0.154 ng/mL (0.00-0.029) H* 04/16/20 07:45 Results - Labs CBC & Chem 7: 04/17/20 05:24 04/17/20 05:24 Labs: Laboratory Last Values WBC 21.1 K/mm3 (4.5-11.0) H 04/17/20 05:24 RBC 3.67 M/mm3 (3.65-5.03) 04/17/20 05:24 Hgb 11.3 gm/dl (11.8-15.2) L 04/17/20 05:24 Hct 34.5 % (35.5-45.6) L 04/17/20 05:24 MCV 94 fl (84-94) 04/17/20 05:24 MCH 31 pg (28-32) 04/17/20 05:24 MCHC 33 % (32-34) 04/17/20 05:24 RDW 17.1 % (13.2-15.2) H 04/17/20 05:24 Plt Count 296 K/mm3 (140-440) 04/17/20 05:24 Lymph % (Auto) 5.0 % (13.4-35.0) L 04/17/20 05:24 [place] % (Auto) 4.1 % (0.0-7.3) 04/17/20 05:24 Eos % (Auto) 0.0 % (0.0-4.3) 04/17/20 05:24 Baso % (Auto) 0.0 % (0.0-1.8) 04/17/20 05:24 Lymph # (Auto) 1.1 K/mm3 (1.2-5.4) L 04/17/20 05:24 [place] # (Auto) 0.9 K/mm3 (0.0-0.8) H 04/17/20 05:24 Eos # (Auto) 0.0 K/mm3 (0.0-0.4) 04/17/20 05:24 Baso # (Auto) 0.0 K/mm3 (0.0-0.1) 04/17/20 05:24 Add Manual Diff Complete 04/16/20 07:45 Total Counted 100 04/16/20 07:45 Seg Neutrophils % 90.9 % (40.0-70.0) H 04/17/20 05:24 Seg Neuts % (Manual) 95.0 % (40.0-70.0) H 04/16/20 07:45 Band Neutrophils % 3.0 % 04/15/20 15:07 Lymphocytes % (Manual) 5.0 % (13.4-35.0) L 04/16/20 07:45 Monocytes % (Manual) 4.0 % (0.0-7.3) 04/15/20 15:07 Nucleated RBC % Not Reportable 04/16/20 07:45 Seg Neutrophils # 19.2 K/mm3 (1.8-7.7) H 04/17/20 05:24 Seg Neutrophils # Man 22.5 K/mm3 (1.8-7.7) H 04/16/20 07:45 Band Neutrophils # 0.0 K/mm3 04/16/20 07:45 Lymphocytes # (Manual) 1.2 K/mm3 (1.2-5.4) 04/16/20 07:45 Abs React Lymphs (Man) 0.0 K/mm3 04/16/20 07:45 Monocytes # (Manual) 0.0 K/mm3 (0.0-0.8) 04/16/20 07:45 Eosinophils # (Manual) 0.0 K/mm3 (0.0-0.4) 04/16/20 07:45 Basophils # (Manual) 0.0 K/mm3 (0.0-0.1) 04/16/20 07:45 Metamyelocytes # 0.0 K/mm3 04/16/20 07:45 Myelocytes # 0.0 K/mm3 04/16/20 07:45 Promyelocytes # 0.0 K/mm3 04/16/20 07:45 Blast Cells # 0.0 K/mm3 04/16/20 07:45 WBC Morphology Not Reportable 04/16/20 07:45 Hypersegmented Neuts Not Reportable 04/16/20 07:45 Hyposegmented Neuts Not Reportable 04/16/20 07:45 Hypogranular Neuts Not Reportable 04/16/20 07:45 Smudge Cells Not Reportable 04/16/20 07:45 Toxic Granulation Not Reportable 04/16/20 07:45 Toxic Vacuolation Not Reportable 04/16/20 07:45 Dohle Bodies Not Reportable 04/16/20 07:45 Pelger-Huet Anomaly Not Reportable 04/16/20 07:45 Gregorio Rods Not Reportable 04/16/20 07:45 Platelet Estimate Consistent w auto 04/16/20 07:45 Clumped Platelets Not Reportable 04/16/20 07:45 Plt Clumps, EDTA Not Reportable 04/16/20 07:45 Large Platelets Not Reportable 04/16/20 07:45 Giant Platelets Not Reportable 04/16/20 07:45 Platelet Satelliting Not Reportable 04/16/20 07:45 Plt Morphology Comment Not Reportable 04/16/20 07:45 RBC Morphology Not Reportable 04/16/20 07:45 Dimorphic RBCs Not Reportable 04/16/20 07:45 Polychromasia Not Reportable 04/16/20 07:45 Hypochromasia Not Reportable 04/16/20 07:45 Poikilocytosis Not Reportable 04/16/20 07:45 Anisocytosis Not Reportable 04/16/20 07:45 Microcytosis Not Reportable 04/16/20 07:45 Macrocytosis Not Reportable 04/16/20 07:45 Spherocytes Not Reportable 04/16/20 07:45 Pappenheimer Bodies Not Reportable 04/16/20 07:45 Sickle Cells Not Reportable 04/16/20 07:45 Target Cells Not Reportable 04/16/20 07:45 Tear Drop Cells Not Reportable 04/16/20 07:45 Ovalocytes Rare 04/16/20 07:45 Helmet Cells Not Reportable 04/16/20 07:45 [place] Bodies Not Reportable 04/16/20 07:45 [place] Rings Not Reportable 04/16/20 07:45 Ki Cells Not Reportable 04/16/20 07:45 Bite Cells Not Reportable 04/16/20 07:45 Crenated Cell Not Reportable 04/16/20 07:45 Elliptocytes Not Reportable 04/16/20 07:45 Acanthocytes (Spur) Not Reportable 04/16/20 07:45 Rouleaux Not Reportable 04/16/20 07:45 Hemoglobin C Crystals Not Reportable 04/16/20 07:45 Schistocytes Rare 04/16/20 07:45 Malaria parasites Not Reportable 04/16/20 07:45 Bal[place]inder Bodies Not Reportable 04/16/20 07:45 Hem Pathologist Commnt No 04/16/20 07:45 APTT 40.2 Sec. (24.2-36.6) H 04/15/20 15:07 D-Dimer 801.82 ng/mlDDU (0-234) H 04/15/20 15:07 ABG pH 7.423 pH Units (7.350-7.450) 04/15/20 15:35 ABG pCO2 46.4 mm Hg 04/15/20 15:35 ABG pO2 56.2 mm Hg (80.0-90.0) L 04/15/20 15:35 ABG HCO3 29.6 mmol/L (20.0-26.0) H 04/15/20 15:35 ABG O2 Saturation 87.3 % (95.0-99.0) L 04/15/20 15:35 ABG O2 Content 14.0 (0.0-44) 04/15/20 15:35 ABG Base Excess 4.5 mmol/L (-2.0-3.0) H 04/15/20 15:35 ABG Hemoglobin 11.6 gm/dl (14.0-18.0) L 04/15/20 15:35 ABG Carboxyhemoglobin 1.5 % (0.0-5.0) 04/15/20 15:35 ABG Methemoglobin 0.5 % (0.0-1.5) 04/15/20 15:35 Oxyhemoglobin 85.6 % (95.0-99.0) L 04/15/20 15:35 FiO2 21 % 04/15/20 15:35 Sodium 138 mmol/L (137-145) 04/17/20 05:24 Potassium 4.4 mmol/L (3.6-5.0) 04/17/20 05:24 Chloride 101.4 mmol/L (98-107) 04/17/20 05:24 Carbon Dioxide 28 mmol/L (22-30) 04/17/20 05:24 Anion Gap 13 mmol/L 04/17/20 05:24 BUN 29 mg/dL (9-20) H 04/17/20 05:24 Creatinine 0.7 mg/dL (0.8-1.3) L 04/17/20 05:24 Estimated GFR > 60 ml/min 04/17/20 05:24 BUN/Creatinine Ratio 41 % 04/17/20 05:24 Glucose 218 mg/dL (75-100) H 04/17/20 05:24 POC Glucose 149 mg/dL (70-105) H 04/18/20 11:28 Hemoglobin A1c 7.7 % (4-6) H 04/16/20 07:45 Lactic Acid 1.70 mmol/L (0.7-2.0) 04/15/20 17:56 Calcium 9.1 mg/dL (8.4-10.2) 04/17/20 05:24 Magnesium 2.00 mg/dL (1.7-2.3) 04/17/20 05:24 Ferritin 469.2 ng/mL (30.0-300.0) H 04/15/20 15:07 Total Bilirubin 0.80 mg/dL (0.1-1.2) 04/17/20 05:24 AST 38 units/L (5-40) 04/17/20 05:24 ALT 19 units/L (7-56) 04/17/20 05:24 Alkaline Phosphatase 158 units/L (35-129) H 04/17/20 05:24 Ammonia 24.0 umol/L (25-60) L 04/15/20 15:07 Lactate Dehydrogenase 193 units/L (91-180) H 04/15/20 15:07 Total Creatine Kinase 256 units/L (55-170) H 04/16/20 07:45 CK-MB (CK-2) 6.2 ng/mL (0.0-4.0) H 04/16/20 07:45 CK-MB (CK-2) Rel Index 2.4 (0-4) 04/16/20 07:45 Troponin T 0.154 ng/mL (0.00-0.029) H* 04/16/20 07:45 C-Reactive Protein 17.50 mg/dL (0.00-1.30) H 04/15/20 15:07 NT-Pro-B Natriuret Pep 5804 pg/mL (0-900) H 04/15/20 15:07 Total Protein 5.8 g/dL (6.3-8.2) L 04/17/20 05:24 Albumin 2.4 g/dL (3.9-5) L 04/17/20 05:24 Albumin/Globulin Ratio 0.7 % 04/17/20 05:24 Triglycerides 79 mg/dL (2-149) 04/15/20 15:07 Cholesterol 78 mg/dL (50-199) 04/15/20 15:07 LDL Cholesterol Direct 33 mg/dL (50-130) L 04/15/20 15:07 HDL Cholesterol 32 mg/dL (40-59) L 04/15/20 15:07 Cholesterol/HDL Ratio 2.43 % 04/15/20 15:07 Procalcitonin 0.16 ng/mL (<0.15) 04/15/20 15:07 Urine Color Yellow (Yellow) 04/15/20 15:04 Urine Turbidity Clear (Clear) 04/15/20 15:04 Urine pH 5.0 (5.0-7.0) 04/15/20 15:04 Ur Specific [place] 1.018 (1.003-1.030) 04/15/20 15:04 Urine Protein 30 mg/dl mg/dL (Negative) 04/15/20 15:04 Urine Glucose (UA) Neg mg/dL (Negative) 04/15/20 15:04 Urine Ketones Neg mg/dL (Negative) 04/15/20 15:04 Urine Blood Neg (Negative) 04/15/20 15:04 Urine Nitrite Neg (Negative) 04/15/20 15:04 Urine Bilirubin Neg (Negative) 04/15/20 15:04 Urine Urobilinogen 4.0 mg/dL (<2.0) 04/15/20 15:04 Ur Leukocyte Esterase Neg (Negative) 04/15/20 15:04 Urine WBC (Auto) 2.0 /HPF (0.0-6.0) 04/15/20 15:04 Urine RBC (Auto) 1.0 /HPF (0.0-6.0) 04/15/20 15:04 Coronavirus (PCR) Negative (Negative) 04/16/20 Unknown Microbiology: Microbiology 04/15/20 15:07 Peripheral/Venous Blood Culture - Preliminary NO GROWTH AFTER 72 HOURS 04/15/20 15:07 Peripheral/Venous Blood Culture - Preliminary Gram Negative Doug 04/15/20 15:04 Urine,Catheterized - Straight Catheter Urine Culture - Final NO GROWTH AFTER 48 HOURS Campos/IV: Voiding Method Diaper Active Medications - Current Medications Current Medications: Generic Name Dose Route Start Last Admin Trade Name Freq PRN Reason Stop Dose Admin Acetaminophen 650 mg 04/15/20 22:34 Acetaminophen 325 Mg Tab PO Q4H PRN Pain MILD(1-3)/Fever >100.5/ENRIQUEZ Carvedilol 3.125 mg 04/17/20 22:00 04/18/20 09:29 Carvedilol 3.125 Mg Tab PO 3.125 mg BID RIKA Administration Famotidine 20 mg 04/17/20 22:00 04/18/20 09:26 Famotidine 20 Mg Tab PO 20 mg BID RIKA Administration Heparin Sodium (Porcine) 5,000 unit 04/15/20 23:00 04/18/20 09:27 Heparin 5,000 Unit/1 Ml Vial SUB-Q 5,000 unit Q12HR RIKA Administration Hydromorphone HCl 0.5 mg 04/15/20 22:34 04/18/20 09:27 Hydromorphone 1 Mg/1 Ml Inj IV 0.5 mg Q3H PRN Administration Pain , Severe (7-10) Cefepime HCl 2 gm in 100 mls @ 200 mls/hr 04/15/20 23:00 04/18/20 15:14 Cefepime/Ns 2 Gm/100 Ml IV Infused Q8HR RIKA Infusion Protocol Vancomycin HCl 750 mg/ Sodium 265 mls @ 166.667 mls/hr 04/16/20 14:00 04/18/20 01:57 Chloride IV 166.667 mls/hr Q12H RIKA Administration Amiodarone HCl 900 mg/ 500 mls @ 33.333 mls/hr 04/18/20 14:00 04/18/20 14:38 Dextrose IV 1 mg/min DIRECT RIKA 33.333 mls/hr Administration Protocol 1 MG/MIN Insulin Human Lispro 0 unit 04/16/20 07:30 04/18/20 13:33 Insulin Lispro 100 Unit/Ml SUB-Q Not Given ACHS [facility] Protocol Lisinopril 5 mg 04/18/20 10:00 04/18/20 09:27 Lisinopril 5 Mg Tab PO 5 mg QDAY RIKA Administration Ondansetron HCl 4 mg 04/15/20 22:34 Ondansetron 4 Mg/2 Ml Inj IV Q3H PRN Nausea And Vomiting Oxycodone/Acetaminophen 1 tab 04/15/20 22:34 Oxycodone /Acetaminophen 5-325mg Tab PO Q6H PRN Pain, Moderate (4-6) Sodium Chloride 10 ml 04/16/20 10:00 04/18/20 09:27 Sodium Chloride 0.9% 10 Ml Flush Syringe IV 10 ml BID RIKA Administration Sodium Chloride 10 ml 04/15/20 22:34 Sodium Chloride 0.9% 10 Ml Flush Syringe IV PRN PRN LINE FLUSH Sodium Hypochlorite 1 applic 04/16/20 11:00 04/18/20 09:28 Sodium Hypochlorite, Dakin's 1/2 Strength (0.25%) 473 Ml Topical Soln TP 1 applicatio BID RIKA Administration
[2020-04-19] MEDS: VANCOMYCIN 750 MG in SODIUM CHLORIDE 0.9% 250ML 250 ML IV SCH ×2 (03:03→21:18)
[2020-04-19] MEDS: CEFEPIME/NS 2 GM/100 ML 2 GM/100 ML BAG IV SCH ×3 (06:07→21:18)
[2020-04-19] MEDS: AMIODARONE 900 MG in DEXTROSE 5% IN WATER 482 ML IV SCH (06:22)
[2020-04-19] MEDS: INSULIN LISPRO 100 UNIT/ML SUB-Q SCH ×3 (08:00→17:31)
[2020-04-19] MEDS: HYDROmorphone 1 MG/1 ML INJ IV PRN (10:10)
[2020-04-19] MEDS: LISINOPRIL 5 MG TAB PO SCH (10:13)
[2020-04-19] MEDS: carvediloL 3.125 MG TAB PO SCH ×2 (10:13→21:19)
[2020-04-19] MEDS: FAMOTIDINE 20 MG TAB PO SCH ×2 (10:14→21:19)
[2020-04-19] MEDS: HEPARIN 5,000 UNIT/1 ML VIAL SUB-Q SCH ×2 (10:14→21:22)
[2020-04-19] MEDS: SODIUM HYPOCHLORITE, DAKIN'S 1/2 STRENGTH (0.25%) 473 ML TOPICAL SOLN TP SCH (12:25)
--- NOTE | 2020-04-19 12:27 | Progress Note ---
Assessment and Plan Assessment and plan: --COVID-19 test; negative --A. fib with RVR; On amiodarone drip ,now rate controlled Defer starting anticoagulants to cardiology --Severe cardiomyopathy; EF 15 to 20% New onset, patient needs ischemia work-up, if not done already Cardiology following, cont Antifailure medications, diuretics --Stage IV sacral decubitus ulcer; Evaluated by wound surgeon Dr. Bahena Planning surgical wound debridement --Decubitus ulcers/infected leg ulcers Empiric IV antibiotics, wound care Wound surgeon consult if needed for possible debridement Supportive care --Sepsis secondary to multiple infected wounds Follow cultures, continue antibiotics Follow wound care recommendations ID consult if needed --Elevated D-dimers; CTA chest negative for PE Check lower extremity Doppler to evaluate for DVT --Severe protein calorie malnutrition; Albumin 2.5, BMI 19.4, Treat the underlying cause Nutrition supplements, Nutrition consult --Type 2 diabetes mellitus/hyperglycemia Accu-Chek sliding scale coverage ADA diet Insulin as needed, A1c 7.7% --DVT prophylaxis;Lovenox --Full CODE STATUS We will closely monitor the patient and adjust the management as needed Plan of care reviewed with the patient and his nurse History Interval history: I have seen and examined the patient at the bedside this morning Patient's chart and medications reviewed Patient with A. fib with rapid ventricular rate on amiodarone drip Now rate controlled Patient has no new complaints Vital signs reviewed Hospitalist Physical - Constitutional Vitals: Temp Pulse Resp BP Pulse Ox 97.9 F 68 20 113/70 97 04/19/20 12:18 04/19/20 12:18 04/19/20 12:18 04/19/20 12:18 04/19/20 12:18 General appearance: Present: no acute distress, well-nourished, other (confused) - EENT Eyes: Present: PERRL, EOM intact - Neck Neck: Present: supple, normal ROM - Respiratory Respiratory effort: normal Respiratory: bilateral: diminished, negative: rales, rhonchi, wheezing - Cardiovascular Rhythm: irregularly irregular Heart Sounds: Present: S1 & S2 - Extremities Extremities: no ischemia, No edema - Abdominal General gastrointestinal: soft, non-tender, non-distended, normal bowel sounds - Integumentary Integumentary: Present: clear, warm - Psychiatric Psychiatric: appropriate mood/affect, cooperative - Neurologic Neurologic: CNII-XII intact, moves all extremities HEART Score - HEART Score Troponin: Troponin T 0.154 ng/mL (0.00-0.029) H* 04/16/20 07:45 Results - Labs CBC & Chem 7: 04/17/20 05:24 04/17/20 05:24 Labs: Laboratory Last Values WBC 21.1 K/mm3 (4.5-11.0) H 04/17/20 05:24 RBC 3.67 M/mm3 (3.65-5.03) 04/17/20 05:24 Hgb 11.3 gm/dl (11.8-15.2) L 04/17/20 05:24 Hct 34.5 % (35.5-45.6) L 04/17/20 05:24 MCV 94 fl (84-94) 04/17/20 05:24 MCH 31 pg (28-32) 04/17/20 05:24 MCHC 33 % (32-34) 04/17/20 05:24 RDW 17.1 % (13.2-15.2) H 04/17/20 05:24 Plt Count 296 K/mm3 (140-440) 04/17/20 05:24 Lymph % (Auto) 5.0 % (13.4-35.0) L 04/17/20 05:24 [place] % (Auto) 4.1 % (0.0-7.3) 04/17/20 05:24 Eos % (Auto) 0.0 % (0.0-4.3) 04/17/20 05:24 Baso % (Auto) 0.0 % (0.0-1.8) 04/17/20 05:24 Lymph # (Auto) 1.1 K/mm3 (1.2-5.4) L 04/17/20 05:24 [place] # (Auto) 0.9 K/mm3 (0.0-0.8) H 04/17/20 05:24 Eos # (Auto) 0.0 K/mm3 (0.0-0.4) 04/17/20 05:24 Baso # (Auto) 0.0 K/mm3 (0.0-0.1) 04/17/20 05:24 Add Manual Diff Complete 04/16/20 07:45 Total Counted 100 04/16/20 07:45 Seg Neutrophils % 90.9 % (40.0-70.0) H 04/17/20 05:24 Seg Neuts % (Manual) 95.0 % (40.0-70.0) H 04/16/20 07:45 Band Neutrophils % 3.0 % 04/15/20 15:07 Lymphocytes % (Manual) 5.0 % (13.4-35.0) L 04/16/20 07:45 Monocytes % (Manual) 4.0 % (0.0-7.3) 04/15/20 15:07 Nucleated RBC % Not Reportable 04/16/20 07:45 Seg Neutrophils # 19.2 K/mm3 (1.8-7.7) H 04/17/20 05:24 Seg Neutrophils # Man 22.5 K/mm3 (1.8-7.7) H 04/16/20 07:45 Band Neutrophils # 0.0 K/mm3 04/16/20 07:45 Lymphocytes # (Manual) 1.2 K/mm3 (1.2-5.4) 04/16/20 07:45 Abs React Lymphs (Man) 0.0 K/mm3 04/16/20 07:45 Monocytes # (Manual) 0.0 K/mm3 (0.0-0.8) 04/16/20 07:45 Eosinophils # (Manual) 0.0 K/mm3 (0.0-0.4) 04/16/20 07:45 Basophils # (Manual) 0.0 K/mm3 (0.0-0.1) 04/16/20 07:45 Metamyelocytes # 0.0 K/mm3 04/16/20 07:45 Myelocytes # 0.0 K/mm3 04/16/20 07:45 Promyelocytes # 0.0 K/mm3 04/16/20 07:45 Blast Cells # 0.0 K/mm3 04/16/20 07:45 WBC Morphology Not Reportable 04/16/20 07:45 Hypersegmented Neuts Not Reportable 04/16/20 07:45 Hyposegmented Neuts Not Reportable 04/16/20 07:45 Hypogranular Neuts Not Reportable 04/16/20 07:45 Smudge Cells Not Reportable 04/16/20 07:45 Toxic Granulation Not Reportable 04/16/20 07:45 Toxic Vacuolation Not Reportable 04/16/20 07:45 Dohle Bodies Not Reportable 04/16/20 07:45 Pelger-Huet Anomaly Not Reportable 04/16/20 07:45 Gregorio Rods Not Reportable 04/16/20 07:45 Platelet Estimate Consistent w auto 04/16/20 07:45 Clumped Platelets Not Reportable 04/16/20 07:45 Plt Clumps, EDTA Not Reportable 04/16/20 07:45 Large Platelets Not Reportable 04/16/20 07:45 Giant Platelets Not Reportable 04/16/20 07:45 Platelet Satelliting Not Reportable 04/16/20 07:45 Plt Morphology Comment Not Reportable 04/16/20 07:45 RBC Morphology Not Reportable 04/16/20 07:45 Dimorphic RBCs Not Reportable 04/16/20 07:45 Polychromasia Not Reportable 04/16/20 07:45 Hypochromasia Not Reportable 04/16/20 07:45 Poikilocytosis Not Reportable 04/16/20 07:45 Anisocytosis Not Reportable 04/16/20 07:45 Microcytosis Not Reportable 04/16/20 07:45 Macrocytosis Not Reportable 04/16/20 07:45 Spherocytes Not Reportable 04/16/20 07:45 Pappenheimer Bodies Not Reportable 04/16/20 07:45 Sickle Cells Not Reportable 04/16/20 07:45 Target Cells Not Reportable 04/16/20 07:45 Tear Drop Cells Not Reportable 04/16/20 07:45 Ovalocytes Rare 04/16/20 07:45 Helmet Cells Not Reportable 04/16/20 07:45 [place] Bodies Not Reportable 04/16/20 07:45 [place] Rings Not Reportable 04/16/20 07:45 [place] Cells Not Reportable 04/16/20 07:45 Bite Cells Not Reportable 04/16/20 07:45 Crenated Cell Not Reportable 04/16/20 07:45 Elliptocytes Not Reportable 04/16/20 07:45 Acanthocytes (Spur) Not Reportable 04/16/20 07:45 Rouleaux Not Reportable 04/16/20 07:45 Hemoglobin C Crystals Not Reportable 04/16/20 07:45 Schistocytes Rare 04/16/20 07:45 Malaria parasites Not Reportable 04/16/20 07:45 [place] Bodies Not Reportable 04/16/20 07:45 Hem Pathologist Commnt No 04/16/20 07:45 APTT 40.2 Sec. (24.2-36.6) H 04/15/20 15:07 D-Dimer 801.82 ng/mlDDU (0-234) H 04/15/20 15:07 ABG pH 7.423 pH Units (7.350-7.450) 04/15/20 15:35 ABG pCO2 46.4 mm Hg 04/15/20 15:35 ABG pO2 56.2 mm Hg (80.0-90.0) L 04/15/20 15:35 ABG HCO3 29.6 mmol/L (20.0-26.0) H 04/15/20 15:35 ABG O2 Saturation 87.3 % (95.0-99.0) L 04/15/20 15:35 ABG O2 Content 14.0 (0.0-44) 04/15/20 15:35 ABG Base Excess 4.5 mmol/L (-2.0-3.0) H 04/15/20 15:35 ABG Hemoglobin 11.6 gm/dl (14.0-18.0) L 04/15/20 15:35 ABG Carboxyhemoglobin 1.5 % (0.0-5.0) 04/15/20 15:35 ABG Methemoglobin 0.5 % (0.0-1.5) 04/15/20 15:35 Oxyhemoglobin 85.6 % (95.0-99.0) L 04/15/20 15:35 FiO2 21 % 04/15/20 15:35 Sodium 138 mmol/L (137-145) 04/17/20 05:24 Potassium 4.4 mmol/L (3.6-5.0) 04/17/20 05:24 Chloride 101.4 mmol/L (98-107) 04/17/20 05:24 Carbon Dioxide 28 mmol/L (22-30) 04/17/20 05:24 Anion Gap 13 mmol/L 04/17/20 05:24 BUN 29 mg/dL (9-20) H 04/17/20 05:24 Creatinine 0.7 mg/dL (0.8-1.3) L 04/17/20 05:24 Estimated GFR > 60 ml/min 04/17/20 05:24 BUN/Creatinine Ratio 41 % 04/17/20 05:24 Glucose 218 mg/dL (75-100) H 04/17/20 05:24 POC Glucose 187 mg/dL (70-105) H 04/19/20 11:56 Hemoglobin A1c 7.7 % (4-6) H 04/16/20 07:45 Lactic Acid 1.70 mmol/L (0.7-2.0) 04/15/20 17:56 Calcium 9.1 mg/dL (8.4-10.2) 04/17/20 05:24 Magnesium 2.00 mg/dL (1.7-2.3) 04/17/20 05:24 Ferritin 469.2 ng/mL (30.0-300.0) H 04/15/20 15:07 Total Bilirubin 0.80 mg/dL (0.1-1.2) 04/17/20 05:24 AST 38 units/L (5-40) 04/17/20 05:24 ALT 19 units/L (7-56) 04/17/20 05:24 Alkaline Phosphatase 158 units/L (35-129) H 04/17/20 05:24 Ammonia 24.0 umol/L (25-60) L 04/15/20 15:07 Lactate Dehydrogenase 193 units/L (91-180) H 04/15/20 15:07 Total Creatine Kinase 256 units/L (55-170) H 04/16/20 07:45 CK-MB (CK-2) 6.2 ng/mL (0.0-4.0) H 04/16/20 07:45 CK-MB (CK-2) Rel Index 2.4 (0-4) 04/16/20 07:45 Troponin T 0.154 ng/mL (0.00-0.029) H* 04/16/20 07:45 C-Reactive Protein 17.50 mg/dL (0.00-1.30) H 04/15/20 15:07 NT-Pro-B Natriuret Pep 5804 pg/mL (0-900) H 04/15/20 15:07 Total Protein 5.8 g/dL (6.3-8.2) L 04/17/20 05:24 Albumin 2.4 g/dL (3.9-5) L 04/17/20 05:24 Albumin/Globulin Ratio 0.7 % 04/17/20 05:24 Triglycerides 79 mg/dL (2-149) 04/15/20 15:07 Cholesterol 78 mg/dL (50-199) 04/15/20 15:07 LDL Cholesterol Direct 33 mg/dL (50-130) L 04/15/20 15:07 HDL Cholesterol 32 mg/dL (40-59) L 04/15/20 15:07 Cholesterol/HDL Ratio 2.43 % 04/15/20 15:07 Procalcitonin 0.16 ng/mL (<0.15) 04/15/20 15:07 Urine Color Yellow (Yellow) 04/15/20 15:04 Urine Turbidity Clear (Clear) 04/15/20 15:04 Urine pH 5.0 (5.0-7.0) 04/15/20 15:04 Ur Specific [place] 1.018 (1.003-1.030) 04/15/20 15:04 Urine Protein 30 mg/dl mg/dL (Negative) 04/15/20 15:04 Urine Glucose (UA) Neg mg/dL (Negative) 04/15/20 15:04 Urine Ketones Neg mg/dL (Negative) 04/15/20 15:04 Urine Blood Neg (Negative) 04/15/20 15:04 Urine Nitrite Neg (Negative) 04/15/20 15:04 Urine Bilirubin Neg (Negative) 04/15/20 15:04 Urine Urobilinogen 4.0 mg/dL (<2.0) 04/15/20 15:04 Ur Leukocyte Esterase Neg (Negative) 04/15/20 15:04 Urine WBC (Auto) 2.0 /HPF (0.0-6.0) 04/15/20 15:04 Urine RBC (Auto) 1.0 /HPF (0.0-6.0) 04/15/20 15:04 Vancomycin Trough 20.7 ug/mL (5.0-20.0) H 04/19/20 01:26 Coronavirus (PCR) Negative (Negative) 04/16/20 Unknown Microbiology: Microbiology 04/15/20 15:07 Peripheral/Venous Blood Culture - Preliminary Proteus Mirabilis 04/15/20 15:07 Peripheral/Venous Blood Culture - Preliminary Proteus Mirabilis 04/15/20 15:04 Urine,Catheterized - Straight Catheter Urine Culture - Final NO GROWTH AFTER 48 HOURS Campos/IV: Voiding Method Incontinent Active Medications - Current Medications Current Medications: Generic Name Dose Route Start Last Admin Trade Name Freq PRN Reason Stop Dose Admin Acetaminophen 650 mg 04/15/20 22:34 Acetaminophen 325 Mg Tab PO Q4H PRN Pain MILD(1-3)/Fever >100.5/ENRIQUEZ Carvedilol 3.125 mg 04/17/20 22:00 04/19/20 10:13 Carvedilol 3.125 Mg Tab PO 3.125 mg BID RIKA Administration Famotidine 20 mg 04/17/20 22:00 04/19/20 10:14 Famotidine 20 Mg Tab PO 20 mg BID RIKA Administration Heparin Sodium (Porcine) 5,000 unit 04/15/20 23:00 04/19/20 10:14 Heparin 5,000 Unit/1 Ml Vial SUB-Q 5,000 unit Q12HR RIKA Administration Hydromorphone HCl 0.5 mg 04/15/20 22:34 04/19/20 10:10 Hydromorphone 1 Mg/1 Ml Inj IV 0.5 mg Q3H PRN Administration Pain , Severe (7-10) Cefepime HCl 2 gm in 100 mls @ 200 mls/hr 04/15/20 23:00 04/19/20 06:07 Cefepime/Ns 2 Gm/100 Ml IV 200 mls/hr Q8HR RIKA Administration Protocol Amiodarone HCl 900 mg/ 500 mls @ 33.333 mls/hr 04/18/20 14:00 04/19/20 06:22 Dextrose IV 1 mg/min DIRECT RIKA 33.333 mls/hr Administration Protocol 1 MG/MIN Vancomycin HCl 750 mg/ Sodium 265 mls @ 166.667 mls/hr 04/19/20 20:00 Chloride IV Q12H [facility] Insulin Human Lispro 0 unit 04/16/20 07:30 04/19/20 08:00 Insulin Lispro 100 Unit/Ml SUB-Q Not Given ACHS [facility] Protocol Lisinopril 5 mg 04/18/20 10:00 04/19/20 10:13 Lisinopril 5 Mg Tab PO 5 mg QDAY RIKA Administration Ondansetron HCl 4 mg 04/15/20 22:34 Ondansetron 4 Mg/2 Ml Inj IV Q3H PRN Nausea And Vomiting Oxycodone/Acetaminophen 1 tab 04/15/20 22:34 Oxycodone /Acetaminophen 5-325mg Tab PO Q6H PRN Pain, Moderate (4-6) Sodium Chloride 10 ml 04/16/20 10:00 04/19/20 10:14 Sodium Chloride 0.9% 10 Ml Flush Syringe IV 10 ml BID RIKA Administration Sodium Chloride 10 ml 04/15/20 22:34 Sodium Chloride 0.9% 10 Ml Flush Syringe IV PRN PRN LINE FLUSH Sodium Hypochlorite 1 applic 04/16/20 11:00 04/18/20 23:36 Sodium Hypochlorite, Dakin's 1/2 Strength (0.25%) 473 Ml Topical Soln TP 1 applicatio BID RIKA Administration Nutrition/Malnutrition Assess - Dietary Evaluation Nutrition/Malnutrition Findings: Nutrition Notes Start: 04/19/20 11:44 Freq: Status: Active Protocol: Document 04/19/20 11:44 HERIBERTO (Rec: 04/19/20 11:56 [id number]) Nutrition Notes Need for Assessment generated from: MD Order Initial or Follow up Assessment Current Diagnosis Diabetes,Sepsis,Heart Failure, Malnutrition Other Pertinent Diagnosis Multiple infected wounds, severe cardiomyopathy Current Diet Consistent CHO Labs/Tests A1C 7.7 Pertinent Medications Reviewed Height 5 ft 5 in Weight 57.9 kg [place] Body Weight (kg) 61.81 BMI 21.2 Weight Status Underweight Subjective/Other Information RD consulted for poor oral intake. Pt from [place] Burn Absent Trauma Absent Difficulty In Chewing Skin Integrity/Comment Brian score: 12 Current % PO Poor (25-49%) Minimum of two criteria Yes Body Fat Depletion Moderate depletion (severe) Muscle Mass Moderate Depletion (severe) Protein-Calorie Malnutrition Severe #1 Nutrition Diagnosis Malnutrition Etiology chronic illness As Evidenced by Signs and Symptoms pt with mutiple infected wounds, questionable PO intake , underweight for age, subcutaneous fat loss and muscle loss Is patient on ventilator? No Is Patient Ambulatory and/or Out of Bed No REE-([facility]-confined to bed) [phone] Kcal/Kg value to use for calculation 35 Approximate Energy Requirements Using 2026 kcal/Kg Calculation Used for Recommendations Kcal/kg Additional Notes Pro needs 1.25-1.5g/k-87g /day Fluid needs 1ml/kcal Nutrition Intervention Change Diet Order: Add mech soft restriction to current diet order Add Supplement/Snack (indicate name/kcal Glucerna TID /protein ) Provides kCal: 660 Provides Protein (gm) 30 Goal #1 PO intake of meals plus ONS to meet 80-100% energy and pro needs Goal #2 Wound healing Goal #3 Wt maintenance and/or gain Anticipated Discharge Needs: Continue ONS 2-3 times daily for wt maintenance and additional pro intake Follow-Up By: 04/22/20 Additional Comments F/U: intakes (meals/ONS)
--- NOTE | 2020-04-19 14:05 | Progress Note ---
Assessment and Plan tte reviewed - EF 15-20%, LV mildly dilated. Unknown etiology or chronicity of CMP. No apparent evidence of acutely decompensated HF. tele reviewed - in SR, HR increases with agitation. BP variable. Optimize HR - i Cont Coreg and lisinopril as tolerated. Recommend initiation of heparin gtt in regards to AFib if no contraindications - pt is pending possible debridement of ulcers. Will likely proceed with conservative cardiac management given altered mental status, chronic debility and multiple co-morbidities. Further recommendations to follow per hospital course. - Patient Problems (1) AMS (altered mental status) Current Visit: Yes Status: Acute (2) Pressure ulcer of sacral region, stage 4 Current Visit: Yes Status: Chronic (3) Sepsis Current Visit: Yes Status: Suspected Qualifiers: Severe sepsis shock status: without septic shock (4) Atrial fibrillation with RVR Current Visit: Yes Status: Acute Reverted to Sinus. DC amiodarone. If recurs re start (5) Hypoxia Current Visit: Yes Status: Acute (6) Cardiomyopathy Current Visit: Yes Status: Chronic (7) HTN (hypertension) Current Visit: Yes Status: Chronic (8) Diabetes Current Visit: Yes Status: Chronic Subjective Date of service: 04/19/20 Principal diagnosis: AMS Objective Vital Signs Temp Pulse Resp BP BP Pulse Ox 04/19/20 12:18 97.9 F 68 20 113/70 97 04/19/20 10:13 72 126/60 04/19/20 07:46 98.2 F 72 126/60 96 04/19/20 04:46 98.3 F 71 17 102/57 98 04/19/20 00:03 97.3 F L 72 17 111/69 100 04/18/20 20:42 98 04/18/20 20:19 97.6 F 76 16 135/73 100 04/18/20 15:40 78 130/70 96 04/18/20 15:00 79 117/65 97 04/18/20 14:59 79 18 117/65 97 04/18/20 14:49 97.6 F 79 18 120/68 96 - Physical Examination General: Other (confused) HEENT: Positive: PERRL Neck: Positive: neck supple, trachea midline Neuro: Positive: Other (confused) Abdomen: Negative: Tender Skin: Positive: Wound (decubitus ulcer). Negative: Rash - Labs and Meds CBC 04/15/20 Range/Units 15:07 WBC 23.2 H (4.5-11.0) K/mm3 RBC 4.14 (3.65-5.03) M/mm3 Hgb 12.0 (11.8-15.2) gm/dl Hct 38.7 (35.5-45.6) % Plt Count 358 (140-440) K/mm3 - Imaging and Cardiology EKG: report reviewed, image reviewed Echo: report reviewed (EF 15-20%, LV mildly dilated) - Telemetry EKG Rhythm: Sinus Rhythm (68/m)
[2020-04-20] MEDS: oxyCODONE /ACETAMINOPHEN 5-325MG TAB PO PRN (00:37)
[2020-04-20] MEDS: INSULIN LISPRO 100 UNIT/ML SUB-Q SCH ×4 (00:42→21:57)
[2020-04-20] MEDS: SODIUM HYPOCHLORITE, DAKIN'S 1/2 STRENGTH (0.25%) 473 ML TOPICAL SOLN TP SCH ×3 (00:48→21:57)
[2020-04-20] MEDS: CEFEPIME/NS 2 GM/100 ML 2 GM/100 ML BAG IV SCH (05:18)
[2020-04-20] MEDS: HYDROmorphone 1 MG/1 ML INJ IV PRN ×2 (05:21→15:29)
--- NOTE | 2020-04-20 08:44 | Progress Note ---
Assessment and Plan Assessment and plan: --COVID-19 test; negative --Severe gram-negative sepsis gram-negative bacteremia[Proteus]2:2 ID evaluation noted and appreciated DC'd Vanco cefepime , started on Rocephin and Flagyl --A. fib with RVR; now rate controlled s/p amiodarone drip , continue beta-blockers Defer starting anticoagulants to cardiology surgeon planning debridement/stageIV sacral decubitus --Severe cardiomyopathy; EF 15 to 20% New onset, patient may need ischemia work-up, if not done already Cardiology following, cont Antifailure medications, diuretics --Stage IV sacral decubitus ulcer; Evaluated by wound surgeon Dr. Bahena Planning surgical wound debridement --Decubitus ulcers/infected leg ulcers ID changed Abx to Rocephin and Flagyl --Elevated D-dimers; CTA chest negative for PE Check lower extremity Doppler to evaluate for DVT --Severe protein calorie malnutrition; Albumin 2.5, BMI 19.4, Treat the underlying cause Nutrition supplements, Nutrition consult --Type 2 diabetes mellitus/hyperglycemia Accu-Chek sliding scale coverage ADA diet Insulin as needed, A1c 7.7% --DVT prophylaxis;Lovenox --Full CODE STATUS We will closely monitor the patient and adjust the management as needed Plan of care reviewed with the patient and his nurse Cardiology evaluation recommendations noted and appreciated 04/18/2020; patient has A. fib with rapid ventricular rate, cardiology planning amiodarone drip We will transfer the patient to telemetry floor and closely monitor 04/19/2020; patient's blood culturesx2 positive for gram-negative Proteus ID consulted 04/20/2020 ID evaluation noted and appreciated , ID discontinued Vanco cefepime, And started Flagyl and Rocephin History Interval history: I have seen and examined the patient at the bedside this morning Patient's chart and medications reviewed Patient sleeping easily awakens No new complaints Vital signs reviewed Hospitalist Physical - Constitutional Vitals: Temp Pulse Resp BP Pulse Ox 98.3 F 81 18 146/76 100 04/20/20 07:19 04/20/20 07:19 04/20/20 00:12 04/20/20 07:19 04/20/20 07:19 General appearance: Present: no acute distress, well-nourished, other (confused) - EENT Eyes: Present: PERRL, EOM intact - Neck Neck: Present: supple, normal ROM - Respiratory Respiratory effort: normal Respiratory: bilateral: diminished, negative: rales, rhonchi, wheezing - Cardiovascular Rhythm: regular Heart Sounds: Present: S1 & S2 - Extremities Extremities: no ischemia, No edema - Abdominal General gastrointestinal: soft, non-tender, non-distended, normal bowel sounds - Integumentary Integumentary: Present: clear, warm - Psychiatric Psychiatric: other (Minimally communicative confused at times) - Neurologic Neurologic: moves all extremities HEART Score - HEART Score Troponin: Troponin T 0.154 ng/mL (0.00-0.029) H* 04/16/20 07:45 Results - Labs CBC & Chem 7: 04/17/20 05:24 04/17/20 05:24 Labs: Laboratory Last Values WBC 21.1 K/mm3 (4.5-11.0) H 04/17/20 05:24 RBC 3.67 M/mm3 (3.65-5.03) 04/17/20 05:24 Hgb 11.3 gm/dl (11.8-15.2) L 04/17/20 05:24 Hct 34.5 % (35.5-45.6) L 04/17/20 05:24 MCV 94 fl (84-94) 04/17/20 05:24 MCH 31 pg (28-32) 04/17/20 05:24 MCHC 33 % (32-34) 04/17/20 05:24 RDW 17.1 % (13.2-15.2) H 04/17/20 05:24 Plt Count 296 K/mm3 (140-440) 04/17/20 05:24 Lymph % (Auto) 5.0 % (13.4-35.0) L 04/17/20 05:24 Murray % (Auto) 4.1 % (0.0-7.3) 04/17/20 05:24 Eos % (Auto) 0.0 % (0.0-4.3) 04/17/20 05:24 Baso % (Auto) 0.0 % (0.0-1.8) 04/17/20 05:24 Lymph # (Auto) 1.1 K/mm3 (1.2-5.4) L 04/17/20 05:24 Murray # (Auto) 0.9 K/mm3 (0.0-0.8) H 04/17/20 05:24 Eos # (Auto) 0.0 K/mm3 (0.0-0.4) 04/17/20 05:24 Baso # (Auto) 0.0 K/mm3 (0.0-0.1) 04/17/20 05:24 Add Manual Diff Complete 04/16/20 07:45 Total Counted 100 04/16/20 07:45 Seg Neutrophils % 90.9 % (40.0-70.0) H 04/17/20 05:24 Seg Neuts % (Manual) 95.0 % (40.0-70.0) H 04/16/20 07:45 Band Neutrophils % 3.0 % 04/15/20 15:07 Lymphocytes % (Manual) 5.0 % (13.4-35.0) L 04/16/20 07:45 Monocytes % (Manual) 4.0 % (0.0-7.3) 04/15/20 15:07 Nucleated RBC % Not Reportable 04/16/20 07:45 Seg Neutrophils # 19.2 K/mm3 (1.8-7.7) H 04/17/20 05:24 Seg Neutrophils # Man 22.5 K/mm3 (1.8-7.7) H 04/16/20 07:45 Band Neutrophils # 0.0 K/mm3 04/16/20 07:45 Lymphocytes # (Manual) 1.2 K/mm3 (1.2-5.4) 04/16/20 07:45 Abs React Lymphs (Man) 0.0 K/mm3 04/16/20 07:45 Monocytes # (Manual) 0.0 K/mm3 (0.0-0.8) 04/16/20 07:45 Eosinophils # (Manual) 0.0 K/mm3 (0.0-0.4) 04/16/20 07:45 Basophils # (Manual) 0.0 K/mm3 (0.0-0.1) 04/16/20 07:45 Metamyelocytes # 0.0 K/mm3 04/16/20 07:45 Myelocytes # 0.0 K/mm3 04/16/20 07:45 Promyelocytes # 0.0 K/mm3 04/16/20 07:45 Blast Cells # 0.0 K/mm3 04/16/20 07:45 WBC Morphology Not Reportable 04/16/20 07:45 Hypersegmented Neuts Not Reportable 04/16/20 07:45 Hyposegmented Neuts Not Reportable 04/16/20 07:45 Hypogranular Neuts Not Reportable 04/16/20 07:45 Smudge Cells Not Reportable 04/16/20 07:45 Toxic Granulation Not Reportable 04/16/20 07:45 Toxic Vacuolation Not Reportable 04/16/20 07:45 Dohle Bodies Not Reportable 04/16/20 07:45 Pelger-Huet Anomaly Not Reportable 04/16/20 07:45 Gregorio Rods Not Reportable 04/16/20 07:45 Platelet Estimate Consistent w auto 04/16/20 07:45 Clumped Platelets Not Reportable 04/16/20 07:45 Plt Clumps, EDTA Not Reportable 04/16/20 07:45 Large Platelets Not Reportable 04/16/20 07:45 Giant Platelets Not Reportable 04/16/20 07:45 Platelet Satelliting Not Reportable 04/16/20 07:45 Plt Morphology Comment Not Reportable 04/16/20 07:45 RBC Morphology Not Reportable 04/16/20 07:45 Dimorphic RBCs Not Reportable 04/16/20 07:45 Polychromasia Not Reportable 04/16/20 07:45 Hypochromasia Not Reportable 04/16/20 07:45 Poikilocytosis Not Reportable 04/16/20 07:45 Anisocytosis Not Reportable 04/16/20 07:45 Microcytosis Not Reportable 04/16/20 07:45 Macrocytosis Not Reportable 04/16/20 07:45 Spherocytes Not Reportable 04/16/20 07:45 Pappenheimer Bodies Not Reportable 04/16/20 07:45 Sickle Cells Not Reportable 04/16/20 07:45 Target Cells Not Reportable 04/16/20 07:45 Tear Drop Cells Not Reportable 04/16/20 07:45 Ovalocytes Rare 04/16/20 07:45 Helmet Cells Not Reportable 04/16/20 07:45 Werner-[place] Bodies Not Reportable 04/16/20 07:45 [place] Rings Not Reportable 04/16/20 07:45 [place] Cells Not Reportable 04/16/20 07:45 Bite Cells Not Reportable 04/16/20 07:45 Crenated Cell Not Reportable 04/16/20 07:45 Elliptocytes Not Reportable 04/16/20 07:45 Acanthocytes (Spur) Not Reportable 04/16/20 07:45 Rouleaux Not Reportable 04/16/20 07:45 Hemoglobin C Crystals Not Reportable 04/16/20 07:45 Schistocytes Rare 04/16/20 07:45 Malaria parasites Not Reportable 04/16/20 07:45 Balwinder Bodies Not Reportable 04/16/20 07:45 Hem Pathologist Commnt No 04/16/20 07:45 APTT 40.2 Sec. (24.2-36.6) H 04/15/20 15:07 D-Dimer 801.82 ng/mlDDU (0-234) H 04/15/20 15:07 ABG pH 7.423 pH Units (7.350-7.450) 04/15/20 15:35 ABG pCO2 46.4 mm Hg 04/15/20 15:35 ABG pO2 56.2 mm Hg (80.0-90.0) L 04/15/20 15:35 ABG HCO3 29.6 mmol/L (20.0-26.0) H 04/15/20 15:35 ABG O2 Saturation 87.3 % (95.0-99.0) L 04/15/20 15:35 ABG O2 Content 14.0 (0.0-44) 04/15/20 15:35 ABG Base Excess 4.5 mmol/L (-2.0-3.0) H 04/15/20 15:35 ABG Hemoglobin 11.6 gm/dl (14.0-18.0) L 04/15/20 15:35 ABG Carboxyhemoglobin 1.5 % (0.0-5.0) 04/15/20 15:35 ABG Methemoglobin 0.5 % (0.0-1.5) 04/15/20 15:35 Oxyhemoglobin 85.6 % (95.0-99.0) L 04/15/20 15:35 FiO2 21 % 04/15/20 15:35 Sodium 138 mmol/L (137-145) 04/17/20 05:24 Potassium 4.4 mmol/L (3.6-5.0) 04/17/20 05:24 Chloride 101.4 mmol/L (98-107) 04/17/20 05:24 Carbon Dioxide 28 mmol/L (22-30) 04/17/20 05:24 Anion Gap 13 mmol/L 04/17/20 05:24 BUN 29 mg/dL (9-20) H 04/17/20 05:24 Creatinine 0.7 mg/dL (0.8-1.3) L 04/17/20 05:24 Estimated GFR > 60 ml/min 04/17/20 05:24 BUN/Creatinine Ratio 41 % 04/17/20 05:24 Glucose 218 mg/dL (75-100) H 04/17/20 05:24 POC Glucose 105 mg/dL (70-105) 04/19/20 21:09 Hemoglobin A1c 7.7 % (4-6) H 04/16/20 07:45 Lactic Acid 1.70 mmol/L (0.7-2.0) 04/15/20 17:56 Calcium 9.1 mg/dL (8.4-10.2) 04/17/20 05:24 Magnesium 2.00 mg/dL (1.7-2.3) 04/17/20 05:24 Ferritin 469.2 ng/mL (30.0-300.0) H 04/15/20 15:07 Total Bilirubin 0.80 mg/dL (0.1-1.2) 04/17/20 05:24 AST 38 units/L (5-40) 04/17/20 05:24 ALT 19 units/L (7-56) 04/17/20 05:24 Alkaline Phosphatase 158 units/L (35-129) H 04/17/20 05:24 Ammonia 24.0 umol/L (25-60) L 04/15/20 15:07 Lactate Dehydrogenase 193 units/L (91-180) H 04/15/20 15:07 Total Creatine Kinase 256 units/L (55-170) H 04/16/20 07:45 CK-MB (CK-2) 6.2 ng/mL (0.0-4.0) H 04/16/20 07:45 CK-MB (CK-2) Rel Index 2.4 (0-4) 04/16/20 07:45 Troponin T 0.154 ng/mL (0.00-0.029) H* 04/16/20 07:45 C-Reactive Protein 17.50 mg/dL (0.00-1.30) H 04/15/20 15:07 NT-Pro-B Natriuret Pep 5804 pg/mL (0-900) H 04/15/20 15:07 Total Protein 5.8 g/dL (6.3-8.2) L 04/17/20 05:24 Albumin 2.4 g/dL (3.9-5) L 04/17/20 05:24 Albumin/Globulin Ratio 0.7 % 04/17/20 05:24 Triglycerides 79 mg/dL (2-149) 04/15/20 15:07 Cholesterol 78 mg/dL (50-199) 04/15/20 15:07 LDL Cholesterol Direct 33 mg/dL (50-130) L 04/15/20 15:07 HDL Cholesterol 32 mg/dL (40-59) L 04/15/20 15:07 Cholesterol/HDL Ratio 2.43 % 04/15/20 15:07 Procalcitonin 0.16 ng/mL (<0.15) 04/15/20 15:07 Urine Color Yellow (Yellow) 04/15/20 15:04 Urine Turbidity Clear (Clear) 04/15/20 15:04 Urine pH 5.0 (5.0-7.0) 04/15/20 15:04 Ur Specific St[place] 1.018 (1.003-1.030) 04/15/20 15:04 Urine Protein 30 mg/dl mg/dL (Negative) 04/15/20 15:04 Urine Glucose (UA) Neg mg/dL (Negative) 04/15/20 15:04 Urine Ketones Neg mg/dL (Negative) 04/15/20 15:04 Urine Blood Neg (Negative) 04/15/20 15:04 Urine Nitrite Neg (Negative) 04/15/20 15:04 Urine Bilirubin Neg (Negative) 04/15/20 15:04 Urine Urobilinogen 4.0 mg/dL (<2.0) 04/15/20 15:04 Ur Leukocyte Esterase Neg (Negative) 04/15/20 15:04 Urine WBC (Auto) 2.0 /HPF (0.0-6.0) 04/15/20 15:04 Urine RBC (Auto) 1.0 /HPF (0.0-6.0) 04/15/20 15:04 Vancomycin Trough 20.7 ug/mL (5.0-20.0) H 04/19/20 01:26 Coronavirus (PCR) Negative (Negative) 04/16/20 Unknown Microbiology: Microbiology 04/15/20 15:07 Peripheral/Venous Blood Culture - Final Proteus Mirabilis 04/15/20 15:07 Peripheral/Venous Blood Culture - Final Proteus Mirabilis Campos/IV: Voiding Method Incontinent Active Medications - Current Medications Current Medications: Generic Name Dose Route Start Last Admin Trade Name Freq PRN Reason Stop Dose Admin Acetaminophen 650 mg 04/15/20 22:34 Acetaminophen 325 Mg Tab PO Q4H PRN Pain MILD(1-3)/Fever >100.5/ENRIQUEZ Carvedilol 3.125 mg 04/17/20 22:00 04/19/20 21:19 Carvedilol 3.125 Mg Tab PO 3.125 mg BID RIKA Administration Famotidine 20 mg 04/17/20 22:00 04/19/20 21:19 Famotidine 20 Mg Tab PO 20 mg BID RIKA Administration Heparin Sodium (Porcine) 5,000 unit 04/15/20 23:00 04/19/20 21:22 Heparin 5,000 Unit/1 Ml Vial SUB-Q 5,000 unit Q12HR RIKA Administration Hydromorphone HCl 0.5 mg 04/15/20 22:34 04/20/20 05:21 Hydromorphone 1 Mg/1 Ml Inj IV 0.5 mg Q3H PRN Administration Pain , Severe (7-10) Cefepime HCl 2 gm in 100 mls @ 200 mls/hr 04/15/20 23:00 04/20/20 05:18 Cefepime/Ns 2 Gm/100 Ml IV 200 mls/hr Q8HR RIKA Administration Protocol Vancomycin HCl 750 mg/ Sodium 265 mls @ 166.667 mls/hr 04/19/20 20:00 04/19/20 23:06 Chloride IV Infused Q12H RIKA Infusion Insulin Human Lispro 0 unit 04/16/20 07:30 04/20/20 00:42 Insulin Lispro 100 Unit/Ml SUB-Q Not Given ACHS [facility] Protocol Lisinopril 5 mg 04/18/20 10:00 04/19/20 10:13 Lisinopril 5 Mg Tab PO 5 mg QDAY RIKA Administration Ondansetron HCl 4 mg 04/15/20 22:34 Ondansetron 4 Mg/2 Ml Inj IV Q3H PRN Nausea And Vomiting Oxycodone/Acetaminophen 1 tab 04/15/20 22:34 04/20/20 00:37 Oxycodone /Acetaminophen 5-325mg Tab PO 1 tab Q6H PRN Administration Pain, Moderate (4-6) Sodium Chloride 10 ml 04/16/20 10:00 04/20/20 00:50 Sodium Chloride 0.9% 10 Ml Flush Syringe IV 10 ml BID RIKA Administration Sodium Chloride 10 ml 04/15/20 22:34 Sodium Chloride 0.9% 10 Ml Flush Syringe IV PRN PRN LINE FLUSH Sodium Hypochlorite 1 applic 04/16/20 11:00 04/20/20 00:48 Sodium Hypochlorite, Dakin's 1/2 Strength (0.25%) 473 Ml Topical Soln TP 1 applicatio BID RIKA Administration Nutrition/Malnutrition Assess - Dietary Evaluation Nutrition/Malnutrition Findings: Nutrition Notes Start: 04/19/20 11:44 Freq: Status: Active Protocol: Document 04/19/20 11:44 [facility] (Rec: 04/19/20 11:56 [facility] [id number]) Nutrition Notes Need for Assessment generated from: MD Order Initial or Follow up Assessment Current Diagnosis Diabetes,Sepsis,Heart Failure, Malnutrition Other Pertinent Diagnosis Multiple infected wounds, severe cardiomyopathy Current Diet Consistent CHO Labs/Tests A1C 7.7 Pertinent Medications Reviewed Height 5 ft 5 in Weight 57.9 kg [place] Body Weight (kg) 61.81 BMI 21.2 Weight Status Underweight Subjective/Other Information RD consulted for poor oral intake. Pt from MD. Burn Absent Trauma Absent Difficulty In Chewing Skin Integrity/Comment Brian score: 12 Current % PO Poor (25-49%) Minimum of two criteria Yes Body Fat Depletion Moderate depletion (severe) Muscle Mass Moderate Depletion (severe) Protein-Calorie Malnutrition Severe #1 Nutrition Diagnosis Malnutrition Etiology chronic illness As Evidenced by Signs and Symptoms pt with mutiple infected wounds, questionable PO intake , underweight for age, subcutaneous fat loss and muscle loss Is patient on ventilator? No Is Patient Ambulatory and/or Out of Bed No REE-([facility]-confined to bed) 1566.408 Kcal/Kg value to use for calculation 35 Approximate Energy Requirements Using 2026 kcal/Kg Calculation Used for Recommendations Kcal/kg Additional Notes Pro needs 1.25-1.5g/k-87g /day Fluid needs 1ml/kcal Nutrition Intervention Change Diet Order: Add mech soft restriction to current diet order Add Supplement/Snack (indicate name/kcal Glucerna TID /protein ) Provides kCal: 660 Provides Protein (gm) 30 Goal #1 PO intake of meals plus ONS to meet 80-100% energy and pro needs Goal #2 Wound healing Goal #3 Wt maintenance and/or gain Anticipated Discharge Needs: Continue ONS 2-3 times daily for wt maintenance and additional pro intake Follow-Up By: 04/22/20 Additional Comments F/U: intakes (meals/ONS)
[2020-04-20] MEDS: VANCOMYCIN 750 MG in SODIUM CHLORIDE 0.9% 250ML 250 ML IV SCH (09:26)
[2020-04-20] MEDS: carvediloL 3.125 MG TAB PO SCH ×2 (09:26→22:02)
[2020-04-20] MEDS: LISINOPRIL 5 MG TAB PO SCH (09:27)
[2020-04-20] MEDS: HEPARIN 5,000 UNIT/1 ML VIAL SUB-Q SCH ×2 (09:27→21:52)
[2020-04-20] MEDS: FAMOTIDINE 20 MG TAB PO SCH ×2 (09:27→21:52)
--- NOTE | 2020-04-20 11:41 | Consultation ---
History of Present Illness - Reason for Consult Consult date: 04/20/20 GNR bacteremia Requesting physician: CRYSTAL CUNNINGHAM - History of Present Illness The patient is a 64-year-old male with CHF, diabetes, hypertension, [facility] resident was admitted to the hospital with change in mental status. Had a low- grade fever on admission, labs showed leukocytosis, due to concerns for sepsis, patient was started on empiric antibiotics. His blood cultures have returned positive for gram-negative rods: Proteus mirabilis. Patient has evidence of severe stage IV and necrotic sacral and hip decubitus ulcers along with other superficial decubitus ulcers. Infectious diseases was consulted. Patient also seen by Dr. Bahena from general surgery and is planning debridement. Now afebrile. Beau historian. Review of Systems: Beau historian, limited ROS Past History Past Medical History: diabetes, heart failure, hypertension Past Surgical History: Other (Not available) Social history: full code, other (L[facility] in [facility]) Family history: hypertension Medications and Allergies Allergies Allergy/AdvReac Type Severity Reaction Status Date / Time No Known Allergies Allergy Unverified 04/15/20 13:09 Active Meds: Active Medications Acetaminophen (Acetaminophen 325 Mg Tab) 650 mg PO Q4H PRN PRN Reason: Pain MILD(1-3)/Fever >100.5/ENRIQUEZ Carvedilol (Carvedilol 3.125 Mg Tab) 3.125 mg PO BID [facility] Last Admin: 04/20/20 09:26 Dose: 3.125 mg Documented by: Famotidine (Famotidine 20 Mg Tab) 20 mg PO BID [facility] Last Admin: 04/20/20 09:27 Dose: 20 mg Documented by: Heparin Sodium (Porcine) (Heparin 5,000 Unit/1 Ml Vial) 5,000 unit SUB-Q Q12HR [facility] Last Admin: 04/20/20 09:27 Dose: 5,000 unit Documented by: Hydromorphone HCl (Hydromorphone 1 Mg/1 Ml Inj) 0.5 mg IV Q3H PRN PRN Reason: Pain , Severe (7-10) Last Admin: 04/20/20 05:21 Dose: 0.5 mg Documented by: Cefepime HCl (Cefepime/Ns 2 Gm/100 Ml) 2 gm in 100 mls @ 200 mls/hr IV Q8HR [facility]; Protocol Last Admin: 04/20/20 05:18 Dose: 200 mls/hr Documented by: Vancomycin HCl 750 mg/ Sodium (Chloride) 265 mls @ 166.667 mls/hr IV Q12H [facility] Last Admin: 04/20/20 09:26 Dose: 166.667 mls/hr Documented by: Insulin Human Lispro (Insulin Lispro 100 Unit/Ml) 0 unit SUB-Q ACHS [facility]; Protocol Last Admin: 04/20/20 00:42 Dose: Not Given Documented by: Lisinopril (Lisinopril 5 Mg Tab) 5 mg PO QDAY [facility] Last Admin: 04/20/20 09:27 Dose: 5 mg Documented by: Ondansetron HCl (Ondansetron 4 Mg/2 Ml Inj) 4 mg IV Q3H PRN PRN Reason: Nausea And Vomiting Oxycodone/Acetaminophen (Oxycodone /Acetaminophen 5-325mg Tab) 1 tab PO Q6H PRN PRN Reason: Pain, Moderate (4-6) Last Admin: 04/20/20 00:37 Dose: 1 tab Documented by: Sodium Chloride (Sodium Chloride 0.9% 10 Ml Flush Syringe) 10 ml IV BID [facility] Last Admin: 04/20/20 09:28 Dose: 10 ml Documented by: Sodium Chloride (Sodium Chloride 0.9% 10 Ml Flush Syringe) 10 ml IV PRN PRN PRN Reason: LINE FLUSH Sodium Hypochlorite (Sodium Hypochlorite, Dakin's 1/2 Strength (0.25%) 473 Ml Topical Soln) 1 applic TP BID [facility] Last Admin: 04/20/20 00:48 Dose: 1 applicatio Documented by: Physical Examination - Physical Exam Narrative exam: Physical Exam: Constitutional: Awake, alert. Cachexia + Head, Ears, Nose: Normocephalic, atraumatic. External ears, nose normal Eyes: Conjunctivae/corneas clear. No icterus. No ptosis. Neck: Supple, no meningeal signs Cardiovascular: S1, S2 normal. Respiratory: Good air entry, clear to auscultation bilaterally GI: Soft, non-tender; bowel sounds normal. No peritoneal signs Musculoskeletal: Multiple necrotic decubiti especially involving sacral and left hip region Skin: No rash or abscess Hem/Lymphatic: No palpable cervical or supraclavicular nodes. No lymphangitis Psych: flat affect Neurological: Awake, alert. - Constitutional Vitals: Vital Signs Temp Pulse Resp BP Pulse Ox 98.3 F 81 18 146/76 100 04/20/20 07:19 04/20/20 07:19 04/20/20 00:12 04/20/20 07:19 04/20/20 07:19 Temperature -Last 24 Hours Temperature 98.3 F Temperature 98.0 F Temperature 98.0 F Temperature 98.1 F Temperature 97.9 F Results - Labs CBC & Chem 7: 04/17/20 05:24 04/17/20 05:24 Labs: Abnormal lab results 04/19/20 04/19/20 04/19/20 Range/Units 07:35 11:56 15:29 POC Glucose 189 H 187 H 214 H (70-105) mg/dL 04/20/20 Range/Units 07:23 POC Glucose 185 H (70-105) mg/dL - Imaging and Cardiology Chest x-ray: report reviewed, image reviewed (no pneumonia) Assessment and Plan Cultures: 04/15/2020 urine culture: No growth 04/15/2020 blood culture: Proteus mirabilis A/P: 64-year-old male with CHF, diabetes, hypertension, [facility] was admitted to the hospital with change in mental status: #Sepsis, secondary to gram-negative bacteremia likely source is multiple infected and necrotic decubiti: sacral and left hip #Proteus mirabilis bacteremia: Secondary to necrotic decubiti #Cachexia, severe protein calorie malnutrition, bedbound status #Cardiomyopathy, EF of 15 to 20% #DM uncontrolled Recs: -abx streamlined to IV ceftriaxone and Flagyl, treat for maximum of 14 days of abx. Prolonged antibiotics are going to be futile considering patient's overall clinical condition, comorbidities, nutritional status, bedbound status -Agree with debridement, Dr. Bahena following Reema Stanley MD, FACP [facility] O: [phone] F: [phone]
[2020-04-20] MEDS: metroNIDAZOLE/NS 500 MG/100 ML 500 MG/100 ML BAG IV SCH ×2 (14:13→21:53)
--- NOTE | 2020-04-20 14:40 | Progress Note ---
Assessment and Plan tte reviewed - EF 15-20%, LV mildly dilated. Unknown etiology or chronicity of CMP. No apparent evidence of acutely decompensated HF. tele reviewed - in SR, HR increases with agitation. BP variable. Optimize HR - i Cont Coreg and lisinopril as tolerated. Recommend initiation of heparin gtt in regards to AFib if no contraindications - pt is pending possible debridement of ulcers. Will likely proceed with conservative cardiac management given altered mental status, chronic debility and multiple co-morbidities. Further recommendations to follow per hospital course. - Patient Problems (1) AMS (altered mental status) Current Visit: Yes Status: Acute (2) Pressure ulcer of sacral region, stage 4 Current Visit: Yes Status: Chronic (3) Sepsis Current Visit: Yes Status: Suspected Qualifiers: Severe sepsis shock status: without septic shock (4) Atrial fibrillation with RVR Current Visit: Yes Status: Acute Reverted to Sinus. DC amiodarone. If recurs re start Increase of carvedilol to 6.25 twice a day. (5) Hypoxia Current Visit: Yes Status: Acute (6) Cardiomyopathy Current Visit: Yes Status: Chronic (7) HTN (hypertension) Current Visit: Yes Status: Chronic Blood pressure is mildly elevated. Carvedilol is increased from 3.125 mg to 6.25 mg twice a day. (8) Diabetes Current Visit: Yes Status: Chronic Subjective Date of service: 04/20/20 Principal diagnosis: AMS Interval history: No symptoms at rest. Objective Vital Signs Temp Pulse Resp BP Pulse Ox 04/20/20 11:58 98.3 F 36 L 138/115 100 04/20/20 07:19 98.3 F 81 146/76 100 04/20/20 00:12 98.0 F 18 126/63 04/19/20 19:49 98.0 F 18 135/105 04/19/20 16:14 98.1 F 68 94/74 92 - Physical Examination General: Other (confused) HEENT: Positive: PERRL Neck: Positive: neck supple, trachea midline Neuro: Positive: Other (confused) Abdomen: Negative: Tender Skin: Positive: Wound (decubitus ulcer). Negative: Rash - Imaging and Cardiology EKG: report reviewed, image reviewed Echo: report reviewed (EF 15-20%, LV mildly dilated)
[2020-04-21] MEDS: oxyCODONE /ACETAMINOPHEN 5-325MG TAB PO PRN (00:11)
[2020-04-21] MEDS: metroNIDAZOLE/NS 500 MG/100 ML 500 MG/100 ML BAG IV SCH ×3 (05:27→21:45)
[2020-04-21 05:44] LABS: Blood Urea Nitrogen 24 mg/dL (9-20); Calcium 8.8 mg/dL (8.4-10.2); Hemolysis Index 3
[2020-04-21 05:47] LABS: BUN/Creatinine Ratio 34
[2020-04-21 06:44] LABS: Hematocrit 32.9 % (35.5-45.6); Hemoglobin 10.5 gm/dl (11.8-15.2); Mean Corpuscular HGB Conc 32 % (32-34); Mean Corpuscular Volume 93 fl (84-94); Platelet Count 377 K/mm3 (140-440); Red Blood Count 3.52 M/mm3 (3.65-5.03); Red Cell Distribution Width 16.7 % (13.2-15.2)
[2020-04-21] MEDS: INSULIN LISPRO 100 UNIT/ML SUB-Q SCH ×4 (08:25→21:44)
[2020-04-21] MEDS: LISINOPRIL 5 MG TAB PO SCH (09:28)
[2020-04-21] MEDS: cefTRIAXone/NS 2 GM/100 ML 2 GM/100 ML BAG IV SCH (09:28)
[2020-04-21] MEDS: HEPARIN 5,000 UNIT/1 ML VIAL SUB-Q SCH ×2 (09:29→21:42)
[2020-04-21] MEDS: carvediloL 3.125 MG TAB PO SCH (09:29)
[2020-04-21] MEDS: FAMOTIDINE 20 MG TAB PO SCH ×2 (09:29→21:42)
[2020-04-21] MEDS: SODIUM HYPOCHLORITE, DAKIN'S 1/2 STRENGTH (0.25%) 473 ML TOPICAL SOLN TP SCH ×2 (09:30→21:46)
[2020-04-21 09:43] LABS: Anisocytosis 1+; Burr Cells 1+; Platelet Estimate Consistent w Auto; Poikilocytosis 1+; Total Cells Counted 100
--- NOTE | 2020-04-21 10:47 | Progress Note ---
Assessment and Plan Assessment and plan: --COVID-19 test; negative --Severe gram-negative sepsis gram-negative bacteremia[Proteus]2:2 ID evaluation noted and appreciated DC'd Vanco cefepime , started on Rocephin and Flagyl --A. fib with RVR; now rate controlled s/p amiodarone drip , continue beta-blockers Defer starting anticoagulants to cardiology surgeon planning debridement/stageIV sacral decubitus --Severe cardiomyopathy; EF 15 to 20% New onset, patient may need ischemia work-up, if not done already Cardiology following, cont Antifailure medications, diuretics --Stage IV sacral decubitus ulcer; Evaluated by wound surgeon Dr. Bahena Planning surgical wound debridement --Decubitus ulcers/infected leg ulcers ID changed Abx to Rocephin and Flagyl --Elevated D-dimers; CTA chest negative for PE Check lower extremity Doppler to evaluate for DVT --Severe protein calorie malnutrition; Albumin 2.5, BMI 19.4, Treat the underlying cause Nutrition supplements, Nutrition consult --Type 2 diabetes mellitus/hyperglycemia Accu-Chek sliding scale coverage ADA diet Insulin as needed, A1c 7.7% --DVT prophylaxis;Lovenox --Full CODE STATUS We will closely monitor the patient and adjust the management as needed Plan of care reviewed with the patient and his nurse Cardiology evaluation recommendations noted and appreciated 04/18/2020; patient has A. fib with rapid ventricular rate, cardiology planning amiodarone drip We will transfer the patient to telemetry floor and closely monitor 04/19/2020; patient's blood culturesx2 positive for gram-negative Proteus ID consulted 04/20/2020 ID evaluation noted and appreciated , ID discontinued Vanco cefepime, And started Flagyl and Rocephin 04/21/2020; surgeon is awaiting consent for surgical debridement of sacral decubitus History Interval history: I have seen and examined the patient at the bedside Patient's chart and medications reviewed Patient has no new complaints Awaiting surgical debridement of stage IV decubitus ulcers sacral Vital signs reviewed Hospitalist Physical - Constitutional Vitals: Temp Pulse Resp BP Pulse Ox 98.4 F 112 H 18 140/60 97 04/21/20 09:00 04/21/20 09:29 04/21/20 09:00 04/21/20 09:29 04/20/20 23:00 General appearance: Present: no acute distress, well-nourished, other (confused) - EENT Eyes: Present: PERRL, EOM intact - Neck Neck: Present: supple, normal ROM - Respiratory Respiratory effort: normal Respiratory: bilateral: diminished, negative: rales, rhonchi, wheezing - Cardiovascular Rhythm: regular Heart Sounds: Present: S1 & S2 - Extremities Extremities: no ischemia, No edema - Abdominal General gastrointestinal: soft, non-tender, non-distended, normal bowel sounds - Integumentary Integumentary: Present: clear, warm - Psychiatric Psychiatric: appropriate mood/affect, cooperative - Neurologic Neurologic: CNII-XII intact, moves all extremities HEART Score - HEART Score Troponin: Troponin T 0.154 ng/mL (0.00-0.029) H* 04/16/20 07:45 Results - Labs CBC & Chem 7: 04/21/20 05:06 04/21/20 05:06 Labs: Laboratory Last Values WBC 20.9 K/mm3 (4.5-11.0) H 04/21/20 05:06 RBC 3.52 M/mm3 (3.65-5.03) L 04/21/20 05:06 Hgb 10.5 gm/dl (11.8-15.2) L 04/21/20 05:06 Hct 32.9 % (35.5-45.6) L 04/21/20 05:06 MCV 93 fl (84-94) 04/21/20 05:06 MCH 30 pg (28-32) 04/21/20 05:06 MCHC 32 % (32-34) 04/21/20 05:06 RDW 16.7 % (13.2-15.2) H 04/21/20 05:06 Plt Count 377 K/mm3 (140-440) 04/21/20 05:06 Lymph % (Auto) 5.0 % (13.4-35.0) L 04/17/20 05:24 [place] % (Auto) 4.1 % (0.0-7.3) 04/17/20 05:24 Eos % (Auto) 0.0 % (0.0-4.3) 04/17/20 05:24 Baso % (Auto) 0.0 % (0.0-1.8) 04/17/20 05:24 Lymph # (Auto) 1.1 K/mm3 (1.2-5.4) L 04/17/20 05:24 [place] # (Auto) 0.9 K/mm3 (0.0-0.8) H 04/17/20 05:24 Eos # (Auto) 0.0 K/mm3 (0.0-0.4) 04/17/20 05:24 Baso # (Auto) 0.0 K/mm3 (0.0-0.1) 04/17/20 05:24 Add Manual Diff Complete 04/21/20 05:06 Total Counted 100 04/21/20 05:06 Seg Neutrophils % 90.9 % (40.0-70.0) H 04/17/20 05:24 Seg Neuts % (Manual) 88.0 % (40.0-70.0) H 04/21/20 05:06 Band Neutrophils % 3.0 % 04/15/20 15:07 Lymphocytes % (Manual) 4.0 % (13.4-35.0) L 04/21/20 05:06 Monocytes % (Manual) 8.0 % (0.0-7.3) H 04/21/20 05:06 Nucleated RBC % Not Reportable 04/21/20 05:06 Seg Neutrophils # 19.2 K/mm3 (1.8-7.7) H 04/17/20 05:24 Seg Neutrophils # Man 18.4 K/mm3 (1.8-7.7) H 04/21/20 05:06 Band Neutrophils # 0.0 K/mm3 04/21/20 05:06 Lymphocytes # (Manual) 0.8 K/mm3 (1.2-5.4) L 04/21/20 05:06 Abs React Lymphs (Man) 0.0 K/mm3 04/21/20 05:06 Monocytes # (Manual) 1.7 K/mm3 (0.0-0.8) H 04/21/20 05:06 Eosinophils # (Manual) 0.0 K/mm3 (0.0-0.4) 04/21/20 05:06 Basophils # (Manual) 0.0 K/mm3 (0.0-0.1) 04/21/20 05:06 Metamyelocytes # 0.0 K/mm3 04/21/20 05:06 Myelocytes # 0.0 K/mm3 04/21/20 05:06 Promyelocytes # 0.0 K/mm3 04/21/20 05:06 Blast Cells # 0.0 K/mm3 04/21/20 05:06 WBC Morphology Not Reportable 04/21/20 05:06 Hypersegmented Neuts Not Reportable 04/21/20 05:06 Hyposegmented Neuts Not Reportable 04/21/20 05:06 Hypogranular Neuts Not Reportable 04/21/20 05:06 Smudge Cells Not Reportable 04/21/20 05:06 Toxic Granulation Not Reportable 04/21/20 05:06 Toxic Vacuolation Not Reportable 04/21/20 05:06 Dohle Bodies Not Reportable 04/21/20 05:06 Pelger-Huet Anomaly Not Reportable 04/21/20 05:06 Gregorio Rods Not Reportable 04/21/20 05:06 Platelet Estimate Consistent w auto 04/21/20 05:06 Clumped Platelets Not Reportable 04/21/20 05:06 Plt Clumps, EDTA Not Reportable 04/21/20 05:06 Large Platelets Not Reportable 04/21/20 05:06 Giant Platelets Not Reportable 04/21/20 05:06 Platelet Satelliting Not Reportable 04/21/20 05:06 Plt Morphology Comment Not Reportable 04/21/20 05:06 RBC Morphology Not Reportable 04/21/20 05:06 Dimorphic RBCs Not Reportable 04/21/20 05:06 Polychromasia Not Reportable 04/21/20 05:06 Hypochromasia Not Reportable 04/21/20 05:06 Poikilocytosis 1+ 04/21/20 05:06 Anisocytosis 1+ 04/21/20 05:06 Microcytosis Not Reportable 04/21/20 05:06 Macrocytosis Not Reportable 04/21/20 05:06 Spherocytes Not Reportable 04/21/20 05:06 Pappenheimer Bodies Not Reportable 04/21/20 05:06 Sickle Cells Not Reportable 04/21/20 05:06 Target Cells Not Reportable 04/21/20 05:06 Tear Drop Cells Not Reportable 04/21/20 05:06 Ovalocytes Not Reportable 04/21/20 05:06 Helmet Cells Not Reportable 04/21/20 05:06 [place] Bodies Not Reportable 04/21/20 05:06 [place] Rings Not Reportable 04/21/20 05:06 [place] Cells 1+ 04/21/20 05:06 Bite Cells Not Reportable 04/21/20 05:06 Crenated Cell Not Reportable 04/21/20 05:06 Elliptocytes Not Reportable 04/21/20 05:06 Acanthocytes (Spur) Not Reportable 04/21/20 05:06 Rouleaux Not Reportable 04/21/20 05:06 Hemoglobin C Crystals Not Reportable 04/21/20 05:06 Schistocytes Not Reportable 04/21/20 05:06 Malaria parasites Not Reportable 04/21/20 05:06 Balwinder Bodies Not Reportable 04/21/20 05:06 Hem Pathologist Commnt No 04/21/20 05:06 APTT 40.2 Sec. (24.2-36.6) H 04/15/20 15:07 D-Dimer 801.82 ng/mlDDU (0-234) H 04/15/20 15:07 ABG pH 7.423 pH Units (7.350-7.450) 04/15/20 15:35 ABG pCO2 46.4 mm Hg 04/15/20 15:35 ABG pO2 56.2 mm Hg (80.0-90.0) L 04/15/20 15:35 ABG HCO3 29.6 mmol/L (20.0-26.0) H 04/15/20 15:35 ABG O2 Saturation 87.3 % (95.0-99.0) L 04/15/20 15:35 ABG O2 Content 14.0 (0.0-44) 04/15/20 15:35 ABG Base Excess 4.5 mmol/L (-2.0-3.0) H 04/15/20 15:35 ABG Hemoglobin 11.6 gm/dl (14.0-18.0) L 04/15/20 15:35 ABG Carboxyhemoglobin 1.5 % (0.0-5.0) 04/15/20 15:35 ABG Methemoglobin 0.5 % (0.0-1.5) 04/15/20 15:35 Oxyhemoglobin 85.6 % (95.0-99.0) L 04/15/20 15:35 FiO2 21 % 04/15/20 15:35 Sodium 131 mmol/L (137-145) L D 04/21/20 05:06 Potassium 4.7 mmol/L (3.6-5.0) 04/21/20 05:06 Chloride 98.8 mmol/L (98-107) 04/21/20 05:06 Carbon Dioxide 27 mmol/L (22-30) 04/21/20 05:06 Anion Gap 10 mmol/L 04/21/20 05:06 BUN 24 mg/dL (9-20) H 04/21/20 05:06 Creatinine 0.7 mg/dL (0.8-1.3) L 04/21/20 05:06 Estimated GFR > 60 ml/min 04/21/20 05:06 BUN/Creatinine Ratio 34 % 04/21/20 05:06 Glucose 112 mg/dL (75-100) H 04/21/20 05:06 POC Glucose 109 mg/dL (70-105) H 04/21/20 08:57 Hemoglobin A1c 7.7 % (4-6) H 04/16/20 07:45 Lactic Acid 1.70 mmol/L (0.7-2.0) 04/15/20 17:56 Calcium 8.8 mg/dL (8.4-10.2) 04/21/20 05:06 Magnesium 1.90 mg/dL (1.7-2.3) 04/21/20 05:06 Ferritin 469.2 ng/mL (30.0-300.0) H 04/15/20 15:07 Total Bilirubin 0.80 mg/dL (0.1-1.2) 04/17/20 05:24 AST 38 units/L (5-40) 04/17/20 05:24 ALT 19 units/L (7-56) 04/17/20 05:24 Alkaline Phosphatase 158 units/L (35-129) H 04/17/20 05:24 Ammonia 24.0 umol/L (25-60) L 04/15/20 15:07 Lactate Dehydrogenase 193 units/L (91-180) H 04/15/20 15:07 Total Creatine Kinase 256 units/L (55-170) H 04/16/20 07:45 CK-MB (CK-2) 6.2 ng/mL (0.0-4.0) H 04/16/20 07:45 CK-MB (CK-2) Rel Index 2.4 (0-4) 04/16/20 07:45 Troponin T 0.154 ng/mL (0.00-0.029) H* 04/16/20 07:45 C-Reactive Protein 17.50 mg/dL (0.00-1.30) H 04/15/20 15:07 NT-Pro-B Natriuret Pep 5804 pg/mL (0-900) H 04/15/20 15:07 Total Protein 5.8 g/dL (6.3-8.2) L 04/17/20 05:24 Albumin 2.4 g/dL (3.9-5) L 04/17/20 05:24 Albumin/Globulin Ratio 0.7 % 04/17/20 05:24 Triglycerides 79 mg/dL (2-149) 04/15/20 15:07 Cholesterol 78 mg/dL (50-199) 04/15/20 15:07 LDL Cholesterol Direct 33 mg/dL (50-130) L 04/15/20 15:07 HDL Cholesterol 32 mg/dL (40-59) L 04/15/20 15:07 Cholesterol/HDL Ratio 2.43 % 04/15/20 15:07 Procalcitonin 0.16 ng/mL (<0.15) 04/15/20 15:07 Urine Color Yellow (Yellow) 04/15/20 15:04 Urine Turbidity Clear (Clear) 04/15/20 15:04 Urine pH 5.0 (5.0-7.0) 04/15/20 15:04 Ur Specific [place] 1.018 (1.003-1.030) 04/15/20 15:04 Urine Protein 30 mg/dl mg/dL (Negative) 04/15/20 15:04 Urine Glucose (UA) Neg mg/dL (Negative) 04/15/20 15:04 Urine Ketones Neg mg/dL (Negative) 04/15/20 15:04 Urine Blood Neg (Negative) 04/15/20 15:04 Urine Nitrite Neg (Negative) 04/15/20 15:04 Urine Bilirubin Neg (Negative) 04/15/20 15:04 Urine Urobilinogen 4.0 mg/dL (<2.0) 04/15/20 15:04 Ur Leukocyte Esterase Neg (Negative) 04/15/20 15:04 Urine WBC (Auto) 2.0 /HPF (0.0-6.0) 04/15/20 15:04 Urine RBC (Auto) 1.0 /HPF (0.0-6.0) 04/15/20 15:04 Vancomycin Trough 20.7 ug/mL (5.0-20.0) H 04/19/20 01:26 Coronavirus (PCR) Negative (Negative) 04/16/20 Unknown Microbiology: Microbiology 04/15/20 15:07 Peripheral/Venous Blood Culture - Final Proteus Mirabilis Campos/IV: Voiding Method Diaper Active Medications - Current Medications Current Medications: Generic Name Dose Route Start Last Admin Trade Name Freq PRN Reason Stop Dose Admin Acetaminophen 650 mg 04/15/20 22:34 Acetaminophen 325 Mg Tab PO Q4H PRN Pain MILD(1-3)/Fever >100.5/ENRIQUEZ Carvedilol 6.25 mg 04/20/20 14:37 04/21/20 09:29 Carvedilol 3.125 Mg Tab PO 6.25 mg BID RIKA Administration Famotidine 20 mg 04/17/20 22:00 04/21/20 09:29 Famotidine 20 Mg Tab PO 20 mg BID RIKA Administration Heparin Sodium (Porcine) 5,000 unit 04/15/20 23:00 04/21/20 09:29 Heparin 5,000 Unit/1 Ml Vial SUB-Q 5,000 unit Q12HR RIKA Administration Hydromorphone HCl 0.5 mg 04/15/20 22:34 04/20/20 15:29 Hydromorphone 1 Mg/1 Ml Inj IV 0.5 mg Q3H PRN Administration Pain , Severe (7-10) Ceftriaxone Sodium 2 gm in 100 mls @ 200 mls/hr 04/20/20 12:00 04/21/20 09:28 Rocephin/Ns 2 Gm/100 Ml IV 200 mls/hr Q24HR RIKA Administration Protocol Metronidazole 500 mg in 100 mls @ 100 mls/hr 04/20/20 12:00 04/21/20 05:27 Flagyl 500 Mg/100 Ml IV 100 mls/hr Q8H RIKA Administration Protocol Insulin Human Lispro 0 unit 04/16/20 07:30 04/21/20 08:25 Insulin Lispro 100 Unit/Ml SUB-Q Not Given ACHS [facility] Protocol Lisinopril 5 mg 04/18/20 10:00 04/21/20 09:28 Lisinopril 5 Mg Tab PO 5 mg QDAY RIKA Administration Ondansetron HCl 4 mg 04/15/20 22:34 Ondansetron 4 Mg/2 Ml Inj IV Q3H PRN Nausea And Vomiting Oxycodone/Acetaminophen 1 tab 04/15/20 22:34 04/21/20 00:11 Oxycodone /Acetaminophen 5-325mg Tab PO 1 tab Q6H PRN Administration Pain, Moderate (4-6) Sodium Chloride 10 ml 04/16/20 10:00 04/21/20 09:30 Sodium Chloride 0.9% 10 Ml Flush Syringe IV 10 ml BID RIKA Administration Sodium Chloride 10 ml 04/15/20 22:34 Sodium Chloride 0.9% 10 Ml Flush Syringe IV PRN PRN LINE FLUSH Sodium Hypochlorite 1 applic 04/16/20 11:00 04/21/20 09:30 Sodium Hypochlorite, Dakin's 1/2 Strength (0.25%) 473 Ml Topical Soln TP 1 applicatio BID RIKA Administration Nutrition/Malnutrition Assess - Dietary Evaluation Nutrition/Malnutrition Findings: Nutrition Notes Start: 04/19/20 11:44 Freq: Status: Active Protocol: Document 04/19/20 11:44 HERIBERTO (Rec: 04/19/20 11:56 [facility] [id number]) Nutrition Notes Need for Assessment generated from: MD Order Initial or Follow up Assessment Current Diagnosis Diabetes,Sepsis,Heart Failure, Malnutrition Other Pertinent Diagnosis Multiple infected wounds, severe cardiomyopathy Current Diet Consistent CHO Labs/Tests A1C 7.7 Pertinent Medications Reviewed Height 5 ft 5 in Weight 57.9 kg Accord Body Weight (kg) 61.81 BMI 21.2 Weight Status Underweight Subjective/Other Information RD consulted for poor oral intake. Pt from [place]. Burn Absent Trauma Absent Difficulty In Chewing Skin Integrity/Comment Brian score: 12 Current % PO Poor (25-49%) Minimum of two criteria Yes Body Fat Depletion Moderate depletion (severe) Muscle Mass Moderate Depletion (severe) Protein-Calorie Malnutrition Severe #1 Nutrition Diagnosis Malnutrition Etiology chronic illness As Evidenced by Signs and Symptoms pt with mutiple infected wounds, questionable PO intake , underweight for age, subcutaneous fat loss and muscle loss Is patient on ventilator? No Is Patient Ambulatory and/or Out of Bed No REE-([facility] Jose Robertode-confined to bed) 1566.408 Kcal/Kg value to use for calculation 35 Approximate Energy Requirements Using 2026 kcal/Kg Calculation Used for Recommendations Kcal/kg Additional Notes Pro needs 1.25-1.5g/k-87g /day Fluid needs 1ml/kcal Nutrition Intervention Change Diet Order: Add mech soft restriction to current diet order Add Supplement/Snack (indicate name/kcal Glucerna TID /protein ) Provides kCal: 660 Provides Protein (gm) 30 Goal #1 PO intake of meals plus ONS to meet 80-100% energy and pro needs Goal #2 Wound healing Goal #3 Wt maintenance and/or gain Anticipated Discharge Needs: Continue ONS 2-3 times daily for wt maintenance and additional pro intake Follow-Up By: 04/22/20 Additional Comments F/U: intakes (meals/ONS)
--- NOTE | 2020-04-21 12:26 | Progress Note ---
Assessment and Plan tte reviewed - EF 15-20%, LV mildly dilated. Unknown etiology or chronicity of CMP. No apparent evidence of acutely decompensated HF. tele reviewed - in AFib/AFlutter HR 120s. BP variable. Optimize HR - Convert Coreg to PO Lopressor TID. Add PO Amiodarone. Cont lisinopril as tolerated. Recommend initiation of heparin gtt in regards to AFib if no contraindications - pt is pending possible debridement of ulcers. Will likely proceed with conservative cardiac management given altered mental status, chronic debility and multiple co-morbidities. Further recommendations to follow per hospital course. This pt was seen in conjunction with Dr Bermudez who agrees with this assessment and plan of care. - Patient Problems (1) AMS (altered mental status) Current Visit: Yes Status: Acute (2) Pressure ulcer of sacral region, stage 4 Current Visit: Yes Status: Chronic (3) Sepsis Current Visit: Yes Status: Suspected Qualifiers: Severe sepsis shock status: without septic shock (4) Atrial fibrillation with RVR Current Visit: Yes Status: Acute (5) Hypoxia Current Visit: Yes Status: Acute (6) Cardiomyopathy Current Visit: Yes Status: Chronic (7) HTN (hypertension) Current Visit: Yes Status: Chronic (8) Diabetes Current Visit: Yes Status: Chronic Subjective Date of service: 04/21/20 Principal diagnosis: AMS Interval history: Patient is resting comfortably in bed, alert but confused. No new cardiac complaints. Tele reviewed: Afib 120s. Objective Last Vital Signs Temp 98.4 F 04/21/20 09:00 Pulse 102 H 04/21/20 11:00 Resp 18 04/21/20 11:00 BP 140/60 04/21/20 09:29 Pulse Ox 98 04/21/20 11:00 - Physical Examination General: Other (confused) HEENT: Positive: PERRL Neck: Positive: neck supple, trachea midline Cardiac: Positive: irregularly irregular, S1/S2 Lungs: Positive: clear to auscultation, Normal Breath Sounds Neuro: Positive: Other (confused) Abdomen: Negative: Tender Skin: Positive: Wound (decubitus ulcer). Negative: Rash - Labs and Meds CBC 04/21/20 Range/Units 05:06 WBC 20.9 H (4.5-11.0) K/mm3 RBC 3.52 L (3.65-5.03) M/mm3 Hgb 10.5 L (11.8-15.2) gm/dl Hct 32.9 L (35.5-45.6) % Plt Count 377 (140-440) K/mm3 Comprehensive Metabolic Panel 04/21/20 Range/Units 05:06 Sodium 131 L D (137-145) mmol/L Potassium 4.7 (3.6-5.0) mmol/L Chloride 98.8 (98-107) mmol/L Carbon Dioxide 27 (22-30) mmol/L BUN 24 H (9-20) mg/dL Creatinine 0.7 L (0.8-1.3) mg/dL Glucose 112 H (75-100) mg/dL Calcium 8.8 (8.4-10.2) mg/dL - Imaging and Cardiology EKG: report reviewed, image reviewed Echo: report reviewed (EF 15-20%, LV mildly dilated) - Telemetry EKG Rhythm: Atrial Fibrillation
[2020-04-21] MEDS: AMIODARONE 200 MG TAB PO SCH ×2 (12:36→21:42)
[2020-04-21] MEDS: METOPROLOL TARTRATE 25 MG TAB PO SCH ×2 (13:42→21:44)
--- NOTE | 2020-04-21 14:09 | Progress Note ---
Assessment and Plan Cultures: 04/15/2020 urine culture: No growth 04/15/2020 blood culture: Proteus mirabilis A/P: 64-year-old male with CHF, diabetes, hypertension, senior living resident was admitted to the hospital with change in mental status: #Sepsis, secondary to gram-negative bacteremia likely source is multiple infected and necrotic decubiti: sacral and left hip #Proteus mirabilis bacteremia: Secondary to necrotic decubiti #Cachexia, severe protein calorie malnutrition, bedbound status #Cardiomyopathy, EF of 15 to 20% #DM uncontrolled Recs: -abx streamlined to IV ceftriaxone and Flagyl, treat for maximum of 14 days of abx. Prolonged antibiotics are going to be futile considering patient's overall clinical condition, comorbidities, nutritional status, bedbound status -Agree with debridement, Dr. Bahena following Js Herman MD [facility] ([facility]) O: [phone] F: [phone] Subjective Date of service: 04/21/20 Principal diagnosis: AMS Interval history: Afebrile, white count 20.9 which is approximately stable. Blood cultures with Proteus Objective - Exam Narrative Exam: Physical Exam: Constitutional: Awake, alert. Cachexia + Head, Ears, Nose: Normocephalic, atraumatic. External ears, nose normal Eyes: Conjunctivae/corneas clear. No icterus. No ptosis. Neck: Supple, no meningeal signs Cardiovascular: S1, S2 normal. Respiratory: Good air entry, clear to auscultation bilaterally GI: Soft, non-tender; bowel sounds normal. No peritoneal signs Musculoskeletal: Multiple necrotic decubiti especially involving sacral and left hip region Skin: No rash or abscess Hem/Lymphatic: No palpable cervical or supraclavicular nodes. Psych: flat affect Neurological: Awake, alert. - Constitutional Vitals: Vital Signs Temp Pulse Resp BP Pulse Ox 98.4 F 121 H 17 121/68 97 04/21/20 12:31 04/21/20 13:42 04/21/20 12:31 04/21/20 13:42 04/21/20 12:31 Temperature -Last 24 Hours Temperature 98.4 F Temperature 98.4 F Temperature 98 F Temperature 98.0 F Temperature 98.0 F Temperature 98.6 F Temperature 98.7 F - Labs CBC & Chem 7: 04/21/20 05:06 04/21/20 05:06 Labs: Abnormal lab results 04/20/20 04/20/20 04/21/20 Range/Units 16:33 21:18 05:06 WBC 20.9 H (4.5-11.0) K/mm3 RBC 3.52 L (3.65-5.03) M/mm3 Hgb 10.5 L (11.8-15.2) gm/dl Hct 32.9 L (35.5-45.6) % RDW 16.7 H (13.2-15.2) % Seg Neuts % (Manual) 88.0 H (40.0-70.0) % Lymphocytes % (Manual) 4.0 L (13.4-35.0) % Monocytes % (Manual) 8.0 H (0.0-7.3) % Seg Neutrophils # Man 18.4 H (1.8-7.7) K/mm3 Lymphocytes # (Manual) 0.8 L (1.2-5.4) K/mm3 Monocytes # (Manual) 1.7 H (0.0-0.8) K/mm3 Sodium (137-145) mmol/L BUN (9-20) mg/dL Creatinine (0.8-1.3) mg/dL Glucose (75-100) mg/dL POC Glucose 197 H 240 H (70-105) mg/dL 04/21/20 04/21/20 04/21/20 Range/Units 05:06 08:57 12:18 WBC (4.5-11.0) K/mm3 RBC (3.65-5.03) M/mm3 Hgb (11.8-15.2) gm/dl Hct (35.5-45.6) % RDW (13.2-15.2) % Seg Neuts % (Manual) (40.0-70.0) % Lymphocytes % (Manual) (13.4-35.0) % Monocytes % (Manual) (0.0-7.3) % Seg Neutrophils # Man (1.8-7.7) K/mm3 Lymphocytes # (Manual) (1.2-5.4) K/mm3 Monocytes # (Manual) (0.0-0.8) K/mm3 Sodium 131 L D (137-145) mmol/L BUN 24 H (9-20) mg/dL Creatinine 0.7 L (0.8-1.3) mg/dL Glucose 112 H (75-100) mg/dL POC Glucose 109 H 148 H (70-105) mg/dL
--- NOTE | 2020-04-21 16:35 | Progress Note ---
Assessment and Plan - Patient Problems (1) Pressure ulcer of sacral region, stage 4 Current Visit: Yes Status: Chronic Plan to address problem: 1) Will need another physician (Hospitalist) to sign consent with me that debridement is medically necessary. Subjective Date of service: 04/21/20 Patient Reports: Positive: no new complaints (I called Mr. Anil Bhatt" again today re consent for debridement. A Mr. King Bearden answered the phone. He is just a friend and does not have POA for this pt.) Objective Vital Signs - 12hr 04/21/20 04/21/20 04/21/20 05:07 09:00 09:28 Temperature 98 F 98.4 F Pulse Rate 68 112 H Pulse Rate [ From Monitor] Respiratory 18 Rate Blood Pressure 143/64 140/60 Blood Pressure 121/68 [Right] O2 Sat by Pulse Oximetry 04/21/20 04/21/20 04/21/20 09:29 11:00 12:31 Temperature 98.4 F Pulse Rate 112 H 108 H Pulse Rate [ 102 H From Monitor] Respiratory 18 17 Rate Blood Pressure 140/60 Blood Pressure 121/62 [Right] O2 Sat by Pulse 98 97 Oximetry 04/21/20 13:42 Temperature Pulse Rate 121 H Pulse Rate [ From Monitor] Respiratory Rate Blood Pressure 121/68 Blood Pressure [Right] O2 Sat by Pulse Oximetry - Integumentary other (No change in sacral and hip decubiti.) - Labs 04/21/20 05:06 04/21/20 05:06 Diabetes panel 04/21/20 Range/Units 05:06 Sodium 131 L D (137-145) mmol/L Potassium 4.7 (3.6-5.0) mmol/L Chloride 98.8 (98-107) mmol/L Carbon Dioxide 27 (22-30) mmol/L BUN 24 H (9-20) mg/dL Creatinine 0.7 L (0.8-1.3) mg/dL Glucose 112 H (75-100) mg/dL Calcium 8.8 (8.4-10.2) mg/dL Calcium panel 04/21/20 Range/Units 05:06 Calcium 8.8 (8.4-10.2) mg/dL Pituitary panel 04/21/20 Range/Units 05:06 Sodium 131 L D (137-145) mmol/L Potassium 4.7 (3.6-5.0) mmol/L Chloride 98.8 (98-107) mmol/L Carbon Dioxide 27 (22-30) mmol/L BUN 24 H (9-20) mg/dL Creatinine 0.7 L (0.8-1.3) mg/dL Glucose 112 H (75-100) mg/dL Calcium 8.8 (8.4-10.2) mg/dL Adrenal panel 04/21/20 Range/Units 05:06 Sodium 131 L D (137-145) mmol/L Potassium 4.7 (3.6-5.0) mmol/L Chloride 98.8 (98-107) mmol/L Carbon Dioxide 27 (22-30) mmol/L BUN 24 H (9-20) mg/dL Creatinine 0.7 L (0.8-1.3) mg/dL Glucose 112 H (75-100) mg/dL Calcium 8.8 (8.4-10.2) mg/dL
[2020-04-22] MEDS: metroNIDAZOLE/NS 500 MG/100 ML 500 MG/100 ML BAG IV SCH ×3 (06:20→21:22)
[2020-04-22] MEDS: INSULIN LISPRO 100 UNIT/ML SUB-Q SCH ×4 (08:19→21:24)
[2020-04-22] MEDS: METOPROLOL TARTRATE 25 MG TAB PO SCH ×2 (09:00→21:22)
[2020-04-22] MEDS: HEPARIN 5,000 UNIT/1 ML VIAL SUB-Q SCH (09:41)
[2020-04-22] MEDS: cefTRIAXone/NS 2 GM/100 ML 2 GM/100 ML BAG IV SCH (09:41)
[2020-04-22] MEDS: LISINOPRIL 5 MG TAB PO SCH (09:41)
[2020-04-22] MEDS: SODIUM HYPOCHLORITE, DAKIN'S 1/2 STRENGTH (0.25%) 473 ML TOPICAL SOLN TP SCH ×2 (09:42→21:23)
[2020-04-22] MEDS: AMIODARONE 200 MG TAB PO SCH (09:42)
[2020-04-22] MEDS: FAMOTIDINE 20 MG TAB PO SCH ×2 (09:42→21:22)
--- NOTE | 2020-04-22 10:43 | Progress Note ---
Assessment and Plan tte reviewed - EF 15-20%, LV mildly dilated. Unknown etiology or chronicity of CMP. No apparent evidence of acutely decompensated HF. Tele reviewed: SR 71. Pt noted to convert to SR overnight. Reduce Amiodarone to once daily. Reduce Metoprolol to BID.Continue Lisinopril. Plan for initiation of systemic AC if/when ok per gen sx. For debridement of decubitous ulcers in near future- tentatively tomorrow per gen sx. Will continue with conservative cardiac management given altered mental status, chronic debility and multiple co-morbidities. Will follow. This pt was seen in conjunction with Dr Bermudez who agrees with this assessment and plan of care. - Patient Problems (1) AMS (altered mental status) Current Visit: Yes Status: Acute (2) Pressure ulcer of sacral region, stage 4 Current Visit: Yes Status: Chronic (3) Sepsis Current Visit: Yes Status: Suspected Qualifiers: Severe sepsis shock status: without septic shock (4) Atrial fibrillation with RVR Current Visit: Yes Status: Acute ->Sinus Rhythm (5) Hypoxia Current Visit: Yes Status: Acute (6) Cardiomyopathy Current Visit: Yes Status: Chronic (7) HTN (hypertension) Current Visit: Yes Status: Chronic (8) Diabetes Current Visit: Yes Status: Chronic Subjective Date of service: 04/22/20 Principal diagnosis: AMS Interval history: Patient is resting comfortably in bed, alert but confused. No new cardiac complaints. Tele reviewed: SR 71. Objective Last Vital Signs Temp 97.6 F 04/22/20 07:52 Pulse 103 H 04/22/20 09:41 Resp 24 04/22/20 07:52 BP 138/74 04/22/20 09:41 Pulse Ox 96 04/22/20 07:52 - Physical Examination General: Other (confused) HEENT: Positive: PERRL Neck: Positive: neck supple, trachea midline Cardiac: Positive: Reg Rate and Rhythm, S1/S2 Lungs: Positive: Normal Breath Sounds Neuro: Positive: Other (confused) Abdomen: Negative: Tender Skin: Positive: Wound (decubitus ulcer). Negative: Rash - Imaging and Cardiology EKG: report reviewed, image reviewed Echo: report reviewed (EF 15-20%, LV mildly dilated) - Telemetry EKG Rhythm: Sinus Rhythm
--- NOTE | 2020-04-22 11:18 | Progress Note ---
Assessment and Plan Assessment and plan: --COVID-19 test; negative --Stage IV sacral decubitus ulcer; Evaluated by wound surgeon Dr. Bahena surgical wound debridement tomorrow Could not contact family, two-physician signed consent N.p.o. from midnight, heparin held --Severe gram-negative sepsis gram-negative bacteremia[Proteus]2:2 ID evaluation noted and appreciated DC'd Vanco cefepime , started on Rocephin and Flagyl --A. fib with RVR; now rate controlled s/p amiodarone drip , continue beta-blockers Defer starting anticoagulants to cardiology surgeon planning debridement/stageIV sacral decubitus --Severe cardiomyopathy; EF 15 to 20% New onset, patient may need ischemia work-up, if not done already Cardiology following, cont Antifailure medications, diuretics --Decubitus ulcers/infected leg ulcers ID changed Abx to Rocephin and Flagyl --Elevated D-dimers; CTA chest negative for PE --Severe protein calorie malnutrition; Albumin 2.5, BMI 19.4, Treat the underlying cause Nutrition supplements, Nutrition consult --Type 2 diabetes mellitus/hyperglycemia Accu-Chek sliding scale coverage ADA diet Insulin as needed, A1c 7.7% --DVT prophylaxis;Lovenox --Full CODE STATUS We will closely monitor the patient and adjust the management as needed Plan of care reviewed with the patient and his nurse Cardiology evaluation recommendations noted and appreciated 04/18/2020; patient has A. fib with rapid ventricular rate, cardiology planning amiodarone drip We will transfer the patient to telemetry floor and closely monitor 04/19/2020; patient's blood culturesx2 positive for gram-negative Proteus ID consulted 04/20/2020 ID evaluation noted and appreciated , ID discontinued Vanco cefepime, And started Flagyl and Rocephin 04/22/2020; two-physician consent in the chart, possible surgical wound debridement tomorrow Heparin held, patient placed n.p.o. from midnight History Interval history: I have seen and examined the patient at the bedside No new complaints, vital signs reviewed Hospitalist Physical - Constitutional Vitals: Temp Pulse Resp BP Pulse Ox 97.6 F 103 H 24 138/74 96 04/22/20 07:52 04/22/20 09:41 04/22/20 07:52 04/22/20 09:41 04/22/20 07:52 General appearance: Present: no acute distress, well-nourished, other (confused) - EENT Eyes: Present: PERRL, EOM intact - Neck Neck: Present: supple, normal ROM - Respiratory Respiratory effort: normal Respiratory: bilateral: diminished, negative: rales, rhonchi, wheezing - Cardiovascular Rhythm: regular Heart Sounds: Present: S1 & S2 - Extremities Extremities: no ischemia, abnormal (Infected wounds) - Abdominal General gastrointestinal: soft, non-tender, non-distended, normal bowel sounds - Integumentary Integumentary: Present: erythema (Stage IV sacral decubitus ulcer) - Psychiatric Psychiatric: cooperative, other (Confused at times) - Neurologic Neurologic: moves all extremities HEART Score - HEART Score Troponin: Troponin T 0.154 ng/mL (0.00-0.029) H* 04/16/20 07:45 Results - Labs CBC & Chem 7: 04/21/20 05:06 04/21/20 05:06 Labs: Laboratory Last Values WBC 20.9 K/mm3 (4.5-11.0) H 04/21/20 05:06 RBC 3.52 M/mm3 (3.65-5.03) L 04/21/20 05:06 Hgb 10.5 gm/dl (11.8-15.2) L 04/21/20 05:06 Hct 32.9 % (35.5-45.6) L 04/21/20 05:06 MCV 93 fl (84-94) 04/21/20 05:06 MCH 30 pg (28-32) 04/21/20 05:06 MCHC 32 % (32-34) 04/21/20 05:06 RDW 16.7 % (13.2-15.2) H 04/21/20 05:06 Plt Count 377 K/mm3 (140-440) 04/21/20 05:06 Lymph % (Auto) 5.0 % (13.4-35.0) L 04/17/20 05:24 [place] % (Auto) 4.1 % (0.0-7.3) 04/17/20 05:24 Eos % (Auto) 0.0 % (0.0-4.3) 04/17/20 05:24 Baso % (Auto) 0.0 % (0.0-1.8) 04/17/20 05:24 Lymph # (Auto) 1.1 K/mm3 (1.2-5.4) L 04/17/20 05:24 [place] # (Auto) 0.9 K/mm3 (0.0-0.8) H 04/17/20 05:24 Eos # (Auto) 0.0 K/mm3 (0.0-0.4) 04/17/20 05:24 Baso # (Auto) 0.0 K/mm3 (0.0-0.1) 04/17/20 05:24 Add Manual Diff Complete 04/21/20 05:06 Total Counted 100 04/21/20 05:06 Seg Neutrophils % 90.9 % (40.0-70.0) H 04/17/20 05:24 Seg Neuts % (Manual) 88.0 % (40.0-70.0) H 04/21/20 05:06 Band Neutrophils % 3.0 % 04/15/20 15:07 Lymphocytes % (Manual) 4.0 % (13.4-35.0) L 04/21/20 05:06 Monocytes % (Manual) 8.0 % (0.0-7.3) H 04/21/20 05:06 Nucleated RBC % Not Reportable 04/21/20 05:06 Seg Neutrophils # 19.2 K/mm3 (1.8-7.7) H 04/17/20 05:24 Seg Neutrophils # Man 18.4 K/mm3 (1.8-7.7) H 04/21/20 05:06 Band Neutrophils # 0.0 K/mm3 04/21/20 05:06 Lymphocytes # (Manual) 0.8 K/mm3 (1.2-5.4) L 04/21/20 05:06 Abs React Lymphs (Man) 0.0 K/mm3 04/21/20 05:06 Monocytes # (Manual) 1.7 K/mm3 (0.0-0.8) H 04/21/20 05:06 Eosinophils # (Manual) 0.0 K/mm3 (0.0-0.4) 04/21/20 05:06 Basophils # (Manual) 0.0 K/mm3 (0.0-0.1) 04/21/20 05:06 Metamyelocytes # 0.0 K/mm3 04/21/20 05:06 Myelocytes # 0.0 K/mm3 04/21/20 05:06 Promyelocytes # 0.0 K/mm3 04/21/20 05:06 Blast Cells # 0.0 K/mm3 04/21/20 05:06 WBC Morphology Not Reportable 04/21/20 05:06 Hypersegmented Neuts Not Reportable 04/21/20 05:06 Hyposegmented Neuts Not Reportable 04/21/20 05:06 Hypogranular Neuts Not Reportable 04/21/20 05:06 Smudge Cells Not Reportable 04/21/20 05:06 Toxic Granulation Not Reportable 04/21/20 05:06 Toxic Vacuolation Not Reportable 04/21/20 05:06 Dohle Bodies Not Reportable 04/21/20 05:06 Pelger-Huet Anomaly Not Reportable 04/21/20 05:06 Gregorio Rods Not Reportable 04/21/20 05:06 Platelet Estimate Consistent w auto 04/21/20 05:06 Clumped Platelets Not Reportable 04/21/20 05:06 Plt Clumps, EDTA Not Reportable 04/21/20 05:06 Large Platelets Not Reportable 04/21/20 05:06 Giant Platelets Not Reportable 04/21/20 05:06 Platelet Satelliting Not Reportable 04/21/20 05:06 Plt Morphology Comment Not Reportable 04/21/20 05:06 RBC Morphology Not Reportable 04/21/20 05:06 Dimorphic RBCs Not Reportable 04/21/20 05:06 Polychromasia Not Reportable 04/21/20 05:06 Hypochromasia Not Reportable 04/21/20 05:06 Poikilocytosis 1+ 04/21/20 05:06 Anisocytosis 1+ 04/21/20 05:06 Microcytosis Not Reportable 04/21/20 05:06 Macrocytosis Not Reportable 04/21/20 05:06 Spherocytes Not Reportable 04/21/20 05:06 Pappenheimer Bodies Not Reportable 04/21/20 05:06 Sickle Cells Not Reportable 04/21/20 05:06 Target Cells Not Reportable 04/21/20 05:06 Tear Drop Cells Not Reportable 04/21/20 05:06 Ovalocytes Not Reportable 04/21/20 05:06 Helmet Cells Not Reportable 04/21/20 05:06 [place] Bodies Not Reportable 04/21/20 05:06 [place] Rings Not Reportable 04/21/20 05:06 Ki Cells 1+ 04/21/20 05:06 Bite Cells Not Reportable 04/21/20 05:06 Crenated Cell Not Reportable 04/21/20 05:06 Elliptocytes Not Reportable 04/21/20 05:06 Acanthocytes (Spur) Not Reportable 04/21/20 05:06 Rouleaux Not Reportable 04/21/20 05:06 Hemoglobin C Crystals Not Reportable 04/21/20 05:06 Schistocytes Not Reportable 04/21/20 05:06 Malaria parasites Not Reportable 04/21/20 05:06 [place] Bodies Not Reportable 04/21/20 05:06 Hem Pathologist Commnt No 04/21/20 05:06 APTT 40.2 Sec. (24.2-36.6) H 04/15/20 15:07 D-Dimer 801.82 ng/mlDDU (0-234) H 04/15/20 15:07 ABG pH 7.423 pH Units (7.350-7.450) 04/15/20 15:35 ABG pCO2 46.4 mm Hg 04/15/20 15:35 ABG pO2 56.2 mm Hg (80.0-90.0) L 04/15/20 15:35 ABG HCO3 29.6 mmol/L (20.0-26.0) H 04/15/20 15:35 ABG O2 Saturation 87.3 % (95.0-99.0) L 04/15/20 15:35 ABG O2 Content 14.0 (0.0-44) 04/15/20 15:35 ABG Base Excess 4.5 mmol/L (-2.0-3.0) H 04/15/20 15:35 ABG Hemoglobin 11.6 gm/dl (14.0-18.0) L 04/15/20 15:35 ABG Carboxyhemoglobin 1.5 % (0.0-5.0) 04/15/20 15:35 ABG Methemoglobin 0.5 % (0.0-1.5) 04/15/20 15:35 Oxyhemoglobin 85.6 % (95.0-99.0) L 04/15/20 15:35 FiO2 21 % 04/15/20 15:35 Sodium 131 mmol/L (137-145) L D 04/21/20 05:06 Potassium 4.7 mmol/L (3.6-5.0) 04/21/20 05:06 Chloride 98.8 mmol/L (98-107) 04/21/20 05:06 Carbon Dioxide 27 mmol/L (22-30) 04/21/20 05:06 Anion Gap 10 mmol/L 04/21/20 05:06 BUN 24 mg/dL (9-20) H 04/21/20 05:06 Creatinine 0.7 mg/dL (0.8-1.3) L 04/21/20 05:06 Estimated GFR > 60 ml/min 04/21/20 05:06 BUN/Creatinine Ratio 34 % 04/21/20 05:06 Glucose 112 mg/dL (75-100) H 04/21/20 05:06 POC Glucose 205 mg/dL (70-105) H 04/21/20 21:32 Hemoglobin A1c 7.7 % (4-6) H 04/16/20 07:45 Lactic Acid 1.70 mmol/L (0.7-2.0) 04/15/20 17:56 Calcium 8.8 mg/dL (8.4-10.2) 04/21/20 05:06 Magnesium 1.90 mg/dL (1.7-2.3) 04/21/20 05:06 Ferritin 469.2 ng/mL (30.0-300.0) H 04/15/20 15:07 Total Bilirubin 0.80 mg/dL (0.1-1.2) 04/17/20 05:24 AST 38 units/L (5-40) 04/17/20 05:24 ALT 19 units/L (7-56) 04/17/20 05:24 Alkaline Phosphatase 158 units/L (35-129) H 04/17/20 05:24 Ammonia 24.0 umol/L (25-60) L 04/15/20 15:07 Lactate Dehydrogenase 193 units/L (91-180) H 04/15/20 15:07 Total Creatine Kinase 256 units/L (55-170) H 04/16/20 07:45 CK-MB (CK-2) 6.2 ng/mL (0.0-4.0) H 04/16/20 07:45 CK-MB (CK-2) Rel Index 2.4 (0-4) 04/16/20 07:45 Troponin T 0.154 ng/mL (0.00-0.029) H* 04/16/20 07:45 C-Reactive Protein 17.50 mg/dL (0.00-1.30) H 04/15/20 15:07 NT-Pro-B Natriuret Pep 5804 pg/mL (0-900) H 04/15/20 15:07 Total Protein 5.8 g/dL (6.3-8.2) L 04/17/20 05:24 Albumin 2.4 g/dL (3.9-5) L 04/17/20 05:24 Albumin/Globulin Ratio 0.7 % 04/17/20 05:24 Triglycerides 79 mg/dL (2-149) 04/15/20 15:07 Cholesterol 78 mg/dL (50-199) 04/15/20 15:07 LDL Cholesterol Direct 33 mg/dL (50-130) L 04/15/20 15:07 HDL Cholesterol 32 mg/dL (40-59) L 04/15/20 15:07 Cholesterol/HDL Ratio 2.43 % 04/15/20 15:07 Procalcitonin 0.16 ng/mL (<0.15) 04/15/20 15:07 Urine Color Yellow (Yellow) 04/15/20 15:04 Urine Turbidity Clear (Clear) 04/15/20 15:04 Urine pH 5.0 (5.0-7.0) 04/15/20 15:04 Ur Specific [place] 1.018 (1.003-1.030) 04/15/20 15:04 Urine Protein 30 mg/dl mg/dL (Negative) 04/15/20 15:04 Urine Glucose (UA) Neg mg/dL (Negative) 04/15/20 15:04 Urine Ketones Neg mg/dL (Negative) 04/15/20 15:04 Urine Blood Neg (Negative) 04/15/20 15:04 Urine Nitrite Neg (Negative) 04/15/20 15:04 Urine Bilirubin Neg (Negative) 04/15/20 15:04 Urine Urobilinogen 4.0 mg/dL (<2.0) 04/15/20 15:04 Ur Leukocyte Esterase Neg (Negative) 04/15/20 15:04 Urine WBC (Auto) 2.0 /HPF (0.0-6.0) 04/15/20 15:04 Urine RBC (Auto) 1.0 /HPF (0.0-6.0) 04/15/20 15:04 Vancomycin Trough 20.7 ug/mL (5.0-20.0) H 04/19/20 01:26 Coronavirus (PCR) Negative (Negative) 04/16/20 Unknown Microbiology: Microbiology 04/21/20 14:38 Peripheral/Venous Blood Culture - Preliminary Culture in Progress 04/21/20 14:38 Peripheral/Venous Blood Culture - Preliminary Culture in Progress Campos/IV: Voiding Method Incontinent Active Medications - Current Medications Current Medications: Generic Name Dose Route Start Last Admin Trade Name Freq PRN Reason Stop Dose Admin Acetaminophen 650 mg 04/15/20 22:34 Acetaminophen 325 Mg Tab PO Q4H PRN Pain MILD(1-3)/Fever >100.5/ENRIQUEZ Amiodarone HCl 200 mg 04/21/20 12:00 04/22/20 09:42 Amiodarone 200 Mg Tab PO 200 mg BID RIKA Administration Famotidine 20 mg 04/17/20 22:00 04/22/20 09:42 Famotidine 20 Mg Tab PO 20 mg BID RIKA Administration Heparin Sodium (Porcine) 5,000 unit 04/15/20 23:00 04/22/20 09:41 Heparin 5,000 Unit/1 Ml Vial SUB-Q 5,000 unit Q12HR RIKA Administration Hydromorphone HCl 0.5 mg 04/15/20 22:34 04/20/20 15:29 Hydromorphone 1 Mg/1 Ml Inj IV 0.5 mg Q3H PRN Administration Pain , Severe (7-10) Ceftriaxone Sodium 2 gm in 100 mls @ 200 mls/hr 04/20/20 12:00 04/22/20 09:41 Rocephin/Ns 2 Gm/100 Ml IV 05/03/20 10:29 200 mls/hr Q24HR RIKA Administration Protocol Metronidazole 500 mg in 100 mls @ 100 mls/hr 04/20/20 12:00 04/22/20 06:20 Flagyl 500 Mg/100 Ml IV 05/04/20 04:59 100 mls/hr Q8H RIKA Administration Protocol Insulin Human Lispro 0 unit 04/16/20 07:30 04/22/20 08:19 Insulin Lispro 100 Unit/Ml SUB-Q Not Given ACHS [facility] Protocol Lisinopril 5 mg 04/18/20 10:00 04/22/20 09:41 Lisinopril 5 Mg Tab PO 5 mg QDAY RIKA Administration Metoprolol Tartrate 25 mg 04/21/20 14:00 04/22/20 09:00 Metoprolol Tartrate 25 Mg Tab PO 25 mg TID RIKA Administration Ondansetron HCl 4 mg 04/15/20 22:34 Ondansetron 4 Mg/2 Ml Inj IV Q3H PRN Nausea And Vomiting Oxycodone/Acetaminophen 1 tab 04/15/20 22:34 04/21/20 00:11 Oxycodone /Acetaminophen 5-325mg Tab PO 1 tab Q6H PRN Administration Pain, Moderate (4-6) Sodium Chloride 10 ml 04/16/20 10:00 04/22/20 09:43 Sodium Chloride 0.9% 10 Ml Flush Syringe IV 10 ml BID RIKA Administration Sodium Chloride 10 ml 04/15/20 22:34 Sodium Chloride 0.9% 10 Ml Flush Syringe IV PRN PRN LINE FLUSH Sodium Hypochlorite 1 applic 04/16/20 11:00 04/22/20 09:42 Sodium Hypochlorite, [place]'s 1/2 Strength (0.25%) 473 Ml Topical Soln TP 1 applicatio BID RIKA Administration Nutrition/Malnutrition Assess - Dietary Evaluation Nutrition/Malnutrition Findings: Nutrition Notes Start: 04/19/20 11:4 4 Freq: Status: Active Protocol: Document 04/19/20 11:44 HERIBERTO (Rec: 04/19/20 11:56 HERIBERTO [id number]) Nutrition Notes Need for Assessment generated from: MD Order Initial or Follow up Assessment Current Diagnosis Diabetes,Sepsis,Heart Failure, Malnutrition Other Pertinent Diagnosis Multiple infected wounds, severe cardiomyopathy Current Diet Consistent CHO Labs/Tests A1C 7.7 Pertinent Medications Reviewed Height 5 ft 5 in Weight 57.9 kg [place] Body Weight (kg) 61.81 BMI 21.2 Weight Status Underweight Subjective/Other Information RD consulted for poor oral intake. Pt from [place]. Burn Absent Trauma Absent Difficulty In Chewing Skin Integrity/Comment Brian score: 12 Current % PO Poor (25-49%) Minimum of two criteria Yes Body Fat Depletion Moderate depletion (severe) Muscle Mass Moderate Depletion (severe) Protein-Calorie Malnutrition Severe #1 Nutrition Diagnosis Malnutrition Etiology chronic illness As Evidenced by Signs and Symptoms pt with mutiple infected wounds, questionable PO intake , underweight for age, subcutaneous fat loss and muscle loss Is patient on ventilator? No Is Patient Ambulatory and/or Out of Bed No REE-([place]-confined to bed) 1566.408 Kcal/Kg value to use for calculation 35 Approximate Energy Requirements Using 2026 kcal/Kg Calculation Used for Recommendations Kcal/kg Additional Notes Pro needs 1.25-1.5g/k-87g /day Fluid needs 1ml/kcal Nutrition Intervention Change Diet Order: Add mech soft restriction to current diet order Add Supplement/Snack (indicate name/kcal Glucerna TID /protein ) Provides kCal: 660 Provides Protein (gm) 30 Goal #1 PO intake of meals plus ONS to meet 80-100% energy and pro needs Goal #2 Wound healing Goal #3 Wt maintenance and/or gain Anticipated Discharge Needs: Continue ONS 2-3 times daily for wt maintenance and additional pro intake Follow-Up By: 04/22/20 Additional Comments F/U: intakes (meals/ONS)
--- NOTE | 2020-04-22 11:37 | Progress Note ---
Assessment and Plan - Patient Problems (1) Pressure ulcer of sacral region, stage 4 Current Visit: Yes Status: Chronic Plan to address problem: 1) I signed a consent for debridement of his sacral and hip ulcers. The hospitalist will need to sign this also. Hopefully this will be done today as I plan on debriding his wounds tomorrow. Subjective Date of service: 04/22/20 Patient Reports: Positive: no new complaints Objective Vital Signs - 12hr 04/21/20 04/22/20 04/22/20 23:49 04:29 07:52 Temperature 97.4 F L 97.4 F L 97.6 F Pulse Rate 72 72 70 Respiratory 20 18 24 Rate Blood Pressure 116/54 103/71 85/56 O2 Sat by Pulse 97 98 96 Oximetry 04/22/20 04/22/20 09:00 09:41 Temperature Pulse Rate 104 H 103 H Respiratory Rate Blood Pressure 138/77 138/74 O2 Sat by Pulse Oximetry - Labs 04/21/20 05:06 04/21/20 05:06
--- NOTE | 2020-04-22 13:01 | Progress Note ---
Assessment and Plan Cultures: 04/15/2020 urine culture: No growth 04/15/2020 blood culture: Proteus mirabilis A/P: 64-year-old male with CHF, diabetes, hypertension, half-way resident was admitted to the hospital with change in mental status: #Sepsis, secondary to gram-negative bacteremia likely source is multiple infected and necrotic decubiti: sacral and left hip #Proteus mirabilis bacteremia: Secondary to necrotic decubiti #Cachexia, severe protein calorie malnutrition, bedbound status #Cardiomyopathy, EF of 15 to 20% #DM uncontrolled Recs: -abx streamlined to IV ceftriaxone and Flagyl, treat for maximum of 14 days of abx. Prolonged antibiotics are going to be futile considering patient's overall clinical condition, comorbidities, nutritional status, bedbound status -Agree with debridement, Dr. Bahena following Js Herman MD [facility] ([facility]) O: [phone] F: [phone] Subjective Date of service: 04/22/20 Principal diagnosis: AMS Interval history: Afebrile. Planned for wound debridement tomorrow. Objective - Exam Narrative Exam: Physical Exam: Constitutional: Awake, alert. Cachexia + Head, Ears, Nose: Normocephalic, atraumatic. External ears, nose normal Eyes: Conjunctivae/corneas clear. No icterus. No ptosis. Neck: Supple, no meningeal signs Cardiovascular: S1, S2 normal. Respiratory: Good air entry, clear to auscultation bilaterally GI: Soft, non-tender; bowel sounds normal. No peritoneal signs Musculoskeletal: Multiple necrotic decubiti especially involving sacral and left hip region Skin: No rash or abscess Hem/Lymphatic: No palpable cervical or supraclavicular nodes. Psych: flat affect Neurological: Awake, alert. - Constitutional Vitals: Vital Signs Temp Pulse Resp BP Pulse Ox 97.6 F 98 H 17 138/74 97 04/22/20 07:52 04/22/20 11:00 04/22/20 11:00 04/22/20 09:41 04/22/20 11:00 Temperature -Last 24 Hours Temperature 97.6 F Temperature 97.4 F Temperature 97.4 F Temperature 98.1 F Temperature 98.4 F - Labs CBC & Chem 7: 04/21/20 05:06 04/21/20 05:06 Labs: Abnormal lab results 04/21/20 04/21/20 04/21/20 Range/Units 12:18 16:53 21:32 POC Glucose 148 H 195 H 205 H (70-105) mg/dL
[2020-04-23] MEDS: metroNIDAZOLE/NS 500 MG/100 ML 500 MG/100 ML BAG IV SCH ×3 (04:00→19:47)
[2020-04-23 06:20] LABS: Hematocrit 31.5 % (35.5-45.6); Hemoglobin 10.3 gm/dl (11.8-15.2); Mean Corpuscular HGB Conc 33 % (32-34); Mean Corpuscular Volume 94 fl (84-94); Platelet Count 348 K/mm3 (140-440); Red Blood Count 3.36 M/mm3 (3.65-5.03); Red Cell Distribution Width 17.2 % (13.2-15.2)
[2020-04-23 06:39] LABS: Blood Urea Nitrogen 20 mg/dL (9-20); Calcium 8.2 mg/dL (8.4-10.2); Hemolysis Index 8
[2020-04-23 06:40] LABS: BUN/Creatinine Ratio 29
--- NOTE | 2020-04-23 09:52 | Progress Note ---
Assessment and Plan tte reviewed - EF 15-20%, LV mildly dilated. Unknown etiology or chronicity of CMP. No apparent evidence of acutely decompensated HF. Pt in AFib/AFlutter HR 70s. Cont PO lopressor and daily PO amio. Cont lisinopril in setting of CMP. Tele reviewed: SR 71. Pt noted to convert to SR overnight. Reduce Amiodarone to once daily. Reduce Metoprolol to BID.Continue Lisinopril. Plan for initiation of systemic AC if/when ok per general surgery. Pt is pending debridement of ulcers - tentatively scheduled for today. The patient has been seen in conjunction with Dr. Bermudez who agrees with the assessment and plan of care. - Patient Problems (1) AMS (altered mental status) Current Visit: Yes Status: Acute (2) Pressure ulcer of sacral region, stage 4 Current Visit: Yes Status: Chronic (3) Sepsis Current Visit: Yes Status: Suspected Qualifiers: Severe sepsis shock status: without septic shock (4) Atrial fibrillation with RVR Current Visit: Yes Status: Acute (5) Hypoxia Current Visit: Yes Status: Acute (6) Cardiomyopathy Current Visit: Yes Status: Chronic (7) HTN (hypertension) Current Visit: Yes Status: Chronic (8) Diabetes Current Visit: Yes Status: Chronic Subjective Date of service: 04/23/20 Principal diagnosis: AMS Interval history: pt resting in bed, remains confused. awaiting debridement. tele reviewed - in AFib/AFlutter HR 70s. Objective Vital Signs Temp Pulse Pulse Resp BP BP BP 04/23/20 07:48 97.8 F 83 12 145/106 04/23/20 07:40 97.8 F 83 15 145/106 04/23/20 04:11 98.4 F 73 17 144/80 04/22/20 23:14 98.7 F 71 17 128/59 04/22/20 21:22 63 95/58 04/22/20 19:26 97.5 F L 63 16 95/58 04/22/20 17:03 142/63 04/22/20 17:01 97.6 F 72 18 78/49 04/22/20 15:52 98.2 F 71 18 137/73 04/22/20 13:25 98.1 F 98 H 14 131/78 04/22/20 11:00 98 H 17 Pulse Ox 04/23/20 07:48 86 04/23/20 07:40 86 04/23/20 04:11 82 L 04/22/20 23:14 98 04/22/20 21:22 04/22/20 19:26 99 04/22/20 17:03 04/22/20 17:01 97 04/22/20 15:52 100 04/22/20 13:25 98 04/22/20 11:00 97 - Physical Examination General: Other (confused) HEENT: Positive: PERRL Neck: Positive: neck supple, trachea midline Cardiac: Positive: irregularly irregular, S1/S2 Lungs: Positive: Decreased Breath Sounds Neuro: Positive: Other (confused) Abdomen: Negative: Tender Skin: Positive: Wound (decubitus ulcer). Negative: Rash - Labs and Meds CBC 04/23/20 Range/Units 05:57 WBC 17.9 H (4.5-11.0) K/mm3 RBC 3.36 L (3.65-5.03) M/mm3 Hgb 10.3 L (11.8-15.2) gm/dl Hct 31.5 L (35.5-45.6) % Plt Count 348 (140-440) K/mm3 Comprehensive Metabolic Panel 04/23/20 Range/Units 05:57 Sodium 135 L (137-145) mmol/L Potassium 3.8 (3.6-5.0) mmol/L Chloride 102.9 (98-107) mmol/L Carbon Dioxide 21 L (22-30) mmol/L BUN 20 (9-20) mg/dL Creatinine 0.7 L (0.8-1.3) mg/dL Glucose 206 H (75-100) mg/dL Calcium 8.2 L (8.4-10.2) mg/dL - Imaging and Cardiology EKG: report reviewed, image reviewed Echo: report reviewed (EF 15-20%, LV mildly dilated) - Telemetry EKG Rhythm: Atrial Fibrillation
[2020-04-23] MEDS ORDERED: AMIODARONE 200 MG TAB PO SCH (10:00)
[2020-04-23] MEDS: FAMOTIDINE 20 MG TAB PO SCH ×2 (10:57→21:09)
[2020-04-23] MEDS: cefTRIAXone/NS 2 GM/100 ML 2 GM/100 ML BAG IV SCH ×2 (10:57→11:10)
[2020-04-23] MEDS: LISINOPRIL 5 MG TAB PO SCH (10:58)
[2020-04-23] MEDS: METOPROLOL TARTRATE 25 MG TAB PO SCH ×2 (10:59→21:11)
[2020-04-23] MEDS: SODIUM HYPOCHLORITE, DAKIN'S 1/2 STRENGTH (0.25%) 473 ML TOPICAL SOLN TP SCH ×2 (10:59→21:10)
[2020-04-23] MEDS: HYDROmorphone 1 MG/1 ML INJ IV PRN (11:07)
[2020-04-23] MEDS: INSULIN LISPRO 100 UNIT/ML SUB-Q SCH ×4 (11:11→21:11)
--- NOTE | 2020-04-23 11:26 | Progress Note ---
Assessment and Plan Assessment and plan: --COVID-19 test; negative --Stage IV sacral decubitus ulcer; s/p surgical wound debridement Patient tolerated the procedure well Could not contact family, two-physician signed consent Continue antibiotics supportive care --Severe gram-negative sepsis gram-negative bacteremia[Proteus]2:2 ID evaluation noted and appreciated DC'd Vanco cefepime , started on Rocephin and Flagyl --A. fib with RVR; now rate controlled s/p amiodarone drip , continue beta-blockers Defer starting anticoagulants to cardiology --Severe cardiomyopathy; EF 15 to 20% New onset, patient may need ischemia work-up, if not done already Cardiology following, cont Antifailure medications, diuretics --Decubitus ulcers/infected leg ulcers ID changed Abx to Rocephin and Flagyl --Elevated D-dimers; CTA chest negative for PE --Severe protein calorie malnutrition; Albumin 2.5, BMI 19.4, Treat the underlying cause Nutrition supplements, Nutrition consult --Type 2 diabetes mellitus/hyperglycemia Accu-Chek sliding scale coverage ADA diet Insulin as needed, A1c 7.7% --DVT prophylaxis;Lovenox --Full CODE STATUS We will closely monitor the patient and adjust the management as needed Plan of care reviewed with the patient and his nurse Cardiology evaluation recommendations noted and appreciated 04/18/2020; patient has A. fib with rapid ventricular rate, cardiology planning amiodarone drip We will transfer the patient to telemetry floor and closely monitor 04/19/2020; patient's blood culturesx2 positive for gram-negative Proteus ID consulted 04/20/2020 ID evaluation noted and appreciated , ID discontinued Vanco cefepime, And started Flagyl and Rocephin 04/22/2020; two-physician consent in the chart, possible surgical wound debridement tomorrow Heparin held, patient placed n.p.o. from midnight 04/23/2020;s/p surgical debridement of sacral decubitus ulcer today, patient tolerated the procedure Continue antibiotics and supportive care History Interval history: I have seen and examined the patient today this morning Patient's chart and medications reviewed Patient underwent surgical debridement of stage IV sacral decubitus ulcer Per surgery, tolerated the procedure well Patient is lethargic due to pain medications and sedation Vital signs noted Hospitalist Physical - Constitutional Vitals: Temp Pulse Resp BP Pulse Ox 97.8 F 83 12 145/106 86 04/23/20 07:48 04/23/20 10:59 04/23/20 07:48 04/23/20 10:59 04/23/20 07:48 General appearance: Present: no acute distress, well-nourished, other (confused) - EENT Eyes: Present: PERRL, EOM intact - Neck Neck: Present: supple, normal ROM - Respiratory Respiratory effort: normal Respiratory: bilateral: diminished, negative: rales, rhonchi, wheezing - Cardiovascular Rhythm: regular Heart Sounds: Present: S1 & S2 - Extremities Extremities: no ischemia, abnormal (Decubitus ulcers) Extremity abnormal: edema - Abdominal General gastrointestinal: soft, non-tender, non-distended, normal bowel sounds - Integumentary Integumentary: Present: clear, warm, erythema (Stage IV sacral decubitus ulcer/surgical dressing) - Psychiatric Psychiatric: other (Confused at times) - Neurologic Neurologic: moves all extremities HEART Score - HEART Score Troponin: Troponin T 0.154 ng/mL (0.00-0.029) H* 04/16/20 07:45 Results - Labs CBC & Chem 7: 04/23/20 05:57 04/23/20 05:57 Labs: Laboratory Last Values WBC 17.9 K/mm3 (4.5-11.0) H 04/23/20 05:57 RBC 3.36 M/mm3 (3.65-5.03) L 04/23/20 05:57 Hgb 10.3 gm/dl (11.8-15.2) L 04/23/20 05:57 Hct 31.5 % (35.5-45.6) L 04/23/20 05:57 MCV 94 fl (84-94) 04/23/20 05:57 MCH 31 pg (28-32) 04/23/20 05:57 MCHC 33 % (32-34) 04/23/20 05:57 RDW 17.2 % (13.2-15.2) H 04/23/20 05:57 Plt Count 348 K/mm3 (140-440) 04/23/20 05:57 Lymph % (Auto) 5.0 % (13.4-35.0) L 04/17/20 05:24 [place] % (Auto) 4.1 % (0.0-7.3) 04/17/20 05:24 Eos % (Auto) 0.0 % (0.0-4.3) 04/17/20 05:24 Baso % (Auto) 0.0 % (0.0-1.8) 04/17/20 05:24 Lymph # (Auto) 1.1 K/mm3 (1.2-5.4) L 04/17/20 05:24 [place] # (Auto) 0.9 K/mm3 (0.0-0.8) H 04/17/20 05:24 Eos # (Auto) 0.0 K/mm3 (0.0-0.4) 04/17/20 05:24 Baso # (Auto) 0.0 K/mm3 (0.0-0.1) 04/17/20 05:24 Add Manual Diff Complete 04/21/20 05:06 Total Counted 100 04/21/20 05:06 Seg Neutrophils % 90.9 % (40.0-70.0) H 04/17/20 05:24 Seg Neuts % (Manual) 88.0 % (40.0-70.0) H 04/21/20 05:06 Band Neutrophils % 3.0 % 04/15/20 15:07 Lymphocytes % (Manual) 4.0 % (13.4-35.0) L 04/21/20 05:06 Monocytes % (Manual) 8.0 % (0.0-7.3) H 04/21/20 05:06 Nucleated RBC % Not Reportable 04/21/20 05:06 Seg Neutrophils # 19.2 K/mm3 (1.8-7.7) H 04/17/20 05:24 Seg Neutrophils # Man 18.4 K/mm3 (1.8-7.7) H 04/21/20 05:06 Band Neutrophils # 0.0 K/mm3 04/21/20 05:06 Lymphocytes # (Manual) 0.8 K/mm3 (1.2-5.4) L 04/21/20 05:06 Abs React Lymphs (Man) 0.0 K/mm3 04/21/20 05:06 Monocytes # (Manual) 1.7 K/mm3 (0.0-0.8) H 04/21/20 05:06 Eosinophils # (Manual) 0.0 K/mm3 (0.0-0.4) 04/21/20 05:06 Basophils # (Manual) 0.0 K/mm3 (0.0-0.1) 04/21/20 05:06 Metamyelocytes # 0.0 K/mm3 04/21/20 05:06 Myelocytes # 0.0 K/mm3 04/21/20 05:06 Promyelocytes # 0.0 K/mm3 04/21/20 05:06 Blast Cells # 0.0 K/mm3 04/21/20 05:06 WBC Morphology Not Reportable 04/21/20 05:06 Hypersegmented Neuts Not Reportable 04/21/20 05:06 Hyposegmented Neuts Not Reportable 04/21/20 05:06 Hypogranular Neuts Not Reportable 04/21/20 05:06 Smudge Cells Not Reportable 04/21/20 05:06 Toxic Granulation Not Reportable 04/21/20 05:06 Toxic Vacuolation Not Reportable 04/21/20 05:06 Dohle Bodies Not Reportable 04/21/20 05:06 Pelger-Huet Anomaly Not Reportable 04/21/20 05:06 Gregorio Rods Not Reportable 04/21/20 05:06 Platelet Estimate Consistent w auto 04/21/20 05:06 Clumped Platelets Not Reportable 04/21/20 05:06 Plt Clumps, EDTA Not Reportable 04/21/20 05:06 Large Platelets Not Reportable 04/21/20 05:06 Giant Platelets Not Reportable 04/21/20 05:06 Platelet Satelliting Not Reportable 04/21/20 05:06 Plt Morphology Comment Not Reportable 04/21/20 05:06 RBC Morphology Not Reportable 04/21/20 05:06 Dimorphic RBCs Not Reportable 04/21/20 05:06 Polychromasia Not Reportable 04/21/20 05:06 Hypochromasia Not Reportable 04/21/20 05:06 Poikilocytosis 1+ 04/21/20 05:06 Anisocytosis 1+ 04/21/20 05:06 Microcytosis Not Reportable 04/21/20 05:06 Macrocytosis Not Reportable 04/21/20 05:06 Spherocytes Not Reportable 04/21/20 05:06 Pappenheimer Bodies Not Reportable 04/21/20 05:06 Sickle Cells Not Reportable 04/21/20 05:06 Target Cells Not Reportable 04/21/20 05:06 Tear Drop Cells Not Reportable 04/21/20 05:06 Ovalocytes Not Reportable 04/21/20 05:06 Helmet Cells Not Reportable 04/21/20 05:06 [place] Bodies Not Reportable 04/21/20 05:06 [place] Rings Not Reportable 04/21/20 05:06 Ki Cells 1+ 04/21/20 05:06 Bite Cells Not Reportable 04/21/20 05:06 Crenated Cell Not Reportable 04/21/20 05:06 Elliptocytes Not Reportable 04/21/20 05:06 Acanthocytes (Spur) Not Reportable 04/21/20 05:06 Rouleaux Not Reportable 04/21/20 05:06 Hemoglobin C Crystals Not Reportable 04/21/20 05:06 Schistocytes Not Reportable 04/21/20 05:06 Malaria parasites Not Reportable 04/21/20 05:06 Balwinder Bodies Not Reportable 04/21/20 05:06 Hem Pathologist Commnt No 04/21/20 05:06 APTT 40.2 Sec. (24.2-36.6) H 04/15/20 15:07 D-Dimer 801.82 ng/mlDDU (0-234) H 04/15/20 15:07 ABG pH 7.423 pH Units (7.350-7.450) 04/15/20 15:35 ABG pCO2 46.4 mm Hg 04/15/20 15:35 ABG pO2 56.2 mm Hg (80.0-90.0) L 04/15/20 15:35 ABG HCO3 29.6 mmol/L (20.0-26.0) H 04/15/20 15:35 ABG O2 Saturation 87.3 % (95.0-99.0) L 04/15/20 15:35 ABG O2 Content 14.0 (0.0-44) 04/15/20 15:35 ABG Base Excess 4.5 mmol/L (-2.0-3.0) H 04/15/20 15:35 ABG Hemoglobin 11.6 gm/dl (14.0-18.0) L 04/15/20 15:35 ABG Carboxyhemoglobin 1.5 % (0.0-5.0) 04/15/20 15:35 ABG Methemoglobin 0.5 % (0.0-1.5) 04/15/20 15:35 Oxyhemoglobin 85.6 % (95.0-99.0) L 04/15/20 15:35 FiO2 21 % 04/15/20 15:35 Sodium 135 mmol/L (137-145) L 04/23/20 05:57 Potassium 3.8 mmol/L (3.6-5.0) 04/23/20 05:57 Chloride 102.9 mmol/L (98-107) 04/23/20 05:57 Carbon Dioxide 21 mmol/L (22-30) L 04/23/20 05:57 Anion Gap 15 mmol/L 04/23/20 05:57 BUN 20 mg/dL (9-20) 04/23/20 05:57 Creatinine 0.7 mg/dL (0.8-1.3) L 04/23/20 05:57 Estimated GFR > 60 ml/min 04/23/20 05:57 BUN/Creatinine Ratio 29 % 04/23/20 05:57 Glucose 206 mg/dL (75-100) H 04/23/20 05:57 POC Glucose 183 mg/dL (70-105) H 04/23/20 07:21 Hemoglobin A1c 7.7 % (4-6) H 04/16/20 07:45 Lactic Acid 1.70 mmol/L (0.7-2.0) 04/15/20 17:56 Calcium 8.2 mg/dL (8.4-10.2) L 04/23/20 05:57 Magnesium 1.90 mg/dL (1.7-2.3) 04/21/20 05:06 Ferritin 469.2 ng/mL (30.0-300.0) H 04/15/20 15:07 Total Bilirubin 0.80 mg/dL (0.1-1.2) 04/17/20 05:24 AST 38 units/L (5-40) 04/17/20 05:24 ALT 19 units/L (7-56) 04/17/20 05:24 Alkaline Phosphatase 158 units/L (35-129) H 04/17/20 05:24 Ammonia 24.0 umol/L (25-60) L 04/15/20 15:07 Lactate Dehydrogenase 193 units/L (91-180) H 04/15/20 15:07 Total Creatine Kinase 256 units/L (55-170) H 04/16/20 07:45 CK-MB (CK-2) 6.2 ng/mL (0.0-4.0) H 04/16/20 07:45 CK-MB (CK-2) Rel Index 2.4 (0-4) 04/16/20 07:45 Troponin T 0.154 ng/mL (0.00-0.029) H* 04/16/20 07:45 C-Reactive Protein 17.50 mg/dL (0.00-1.30) H 04/15/20 15:07 NT-Pro-B Natriuret Pep 5804 pg/mL (0-900) H 04/15/20 15:07 Total Protein 5.8 g/dL (6.3-8.2) L 04/17/20 05:24 Albumin 2.4 g/dL (3.9-5) L 04/17/20 05:24 Albumin/Globulin Ratio 0.7 % 04/17/20 05:24 Triglycerides 79 mg/dL (2-149) 04/15/20 15:07 Cholesterol 78 mg/dL (50-199) 04/15/20 15:07 LDL Cholesterol Direct 33 mg/dL (50-130) L 04/15/20 15:07 HDL Cholesterol 32 mg/dL (40-59) L 04/15/20 15:07 Cholesterol/HDL Ratio 2.43 % 04/15/20 15:07 Procalcitonin 0.16 ng/mL (<0.15) 04/15/20 15:07 Urine Color Yellow (Yellow) 04/15/20 15:04 Urine Turbidity Clear (Clear) 04/15/20 15:04 Urine pH 5.0 (5.0-7.0) 04/15/20 15:04 Ur Specific [place] 1.018 (1.003-1.030) 04/15/20 15:04 Urine Protein 30 mg/dl mg/dL (Negative) 04/15/20 15:04 Urine Glucose (UA) Neg mg/dL (Negative) 04/15/20 15:04 Urine Ketones Neg mg/dL (Negative) 04/15/20 15:04 Urine Blood Neg (Negative) 04/15/20 15:04 Urine Nitrite Neg (Negative) 04/15/20 15:04 Urine Bilirubin Neg (Negative) 04/15/20 15:04 Urine Urobilinogen 4.0 mg/dL (<2.0) 04/15/20 15:04 Ur Leukocyte Esterase Neg (Negative) 04/15/20 15:04 Urine WBC (Auto) 2.0 /HPF (0.0-6.0) 04/15/20 15:04 Urine RBC (Auto) 1.0 /HPF (0.0-6.0) 04/15/20 15:04 Vancomycin Trough 20.7 ug/mL (5.0-20.0) H 04/19/20 01:26 Coronavirus (PCR) Negative (Negative) 04/16/20 Unknown Microbiology: Microbiology 04/21/20 14:38 Peripheral/Venous Blood Culture - Preliminary NO GROWTH AFTER 24 HOURS 04/21/20 14:38 Peripheral/Venous Blood Culture - Preliminary NO GROWTH AFTER 24 HOURS Campos/IV: Voiding Method Incontinent Active Medications - Current Medications Current Medications: Generic Name Dose Route Start Last Admin Trade Name Freq PRN Reason Stop Dose Admin Acetaminophen 650 mg 04/15/20 22:34 Acetaminophen 325 Mg Tab PO Q4H PRN Pain MILD(1-3)/Fever >100.5/ENRIQUEZ Amiodarone HCl 200 mg 04/23/20 10:00 04/23/20 10:57 Amiodarone 200 Mg Tab PO 200 mg QDAY RIKA Administration Famotidine 20 mg 04/17/20 22:00 04/23/20 10:57 Famotidine 20 Mg Tab PO 20 mg BID RIKA Administration Hydromorphone HCl 0.5 mg 04/15/20 22:34 04/23/20 11:07 Hydromorphone 1 Mg/1 Ml Inj IV 0.5 mg Q3H PRN Administration Pain , Severe (7-10) Ceftriaxone Sodium 2 gm in 100 mls @ 200 mls/hr 04/20/20 12:00 04/23/20 11:10 Rocephin/Ns 2 Gm/100 Ml IV 05/03/20 10:29 200 mls/hr Q24HR RIKA Administration Protocol Metronidazole 500 mg in 100 mls @ 100 mls/hr 04/20/20 12:00 04/23/20 04:00 Flagyl 500 Mg/100 Ml IV 05/04/20 04:59 100 mls/hr Q8H RIKA Administration Protocol Insulin Human Lispro 0 unit 04/16/20 07:30 04/23/20 11:11 Insulin Lispro 100 Unit/Ml SUB-Q Not Given ACHS [facility] Protocol Lisinopril 5 mg 04/18/20 10:00 04/23/20 10:58 Lisinopril 5 Mg Tab PO 5 mg QDAY RIKA Administration Metoprolol Tartrate 25 mg 04/22/20 22:00 04/23/20 10:59 Metoprolol Tartrate 25 Mg Tab PO 25 mg BID RIKA Administration Ondansetron HCl 4 mg 04/15/20 22:34 Ondansetron 4 Mg/2 Ml Inj IV Q3H PRN Nausea And Vomiting Oxycodone/Acetaminophen 1 tab 04/15/20 22:34 04/21/20 00:11 Oxycodone /Acetaminophen 5-325mg Tab PO 1 tab Q6H PRN Administration Pain, Moderate (4-6) Sodium Chloride 10 ml 04/16/20 10:00 04/23/20 11:00 Sodium Chloride 0.9% 10 Ml Flush Syringe IV 10 ml BID RIKA Administration Sodium Chloride 10 ml 04/15/20 22:34 Sodium Chloride 0.9% 10 Ml Flush Syringe IV PRN PRN LINE FLUSH Sodium Hypochlorite 1 applic 04/16/20 11:00 04/23/20 10:59 Sodium Hypochlorite, Dakin's 1/2 Strength (0.25%) 473 Ml Topical Soln TP 1 applicatio BID RIKA Administration Nutrition/Malnutrition Assess - Dietary Evaluation Nutrition/Malnutrition Findings: Nutrition Notes Start: 04/19/20 11:44 Freq: Status: Active Protocol: Document 04/22/20 14:05 AL (Rec: 04/22/20 14:15 AL [id number]) Co-Sign 04/22/20 14:05 LP Nutrition Notes Need for Assessment generated from: MD Order Initial or Follow up Reassessment Current Diagnosis Diabetes,Sepsis,Heart Failure, Malnutrition Other Pertinent Diagnosis Multiple infected wounds, severe cardiomyopathy Current Diet Pureed Diet Labs/Tests 04/21 Na 131 BUN 24 Cr .7 A1C 7.7 Pertinent Medications Reviewed Height 5 ft 5 in Weight 59.8 kg [place] Body Weight (kg) 61.81 BMI 21.9 Weight Status Underweight Subjective/Other Information FU for intakes. Pt admits to consuming approximately 60% of meals and drinks 1-2 Glucerna shakes daily. Percent of energy/protein needs met: 83%/91% Burn Absent Trauma Absent Difficulty In Chewing Skin Integrity/Comment Brian score: 12 Current % PO Fair (50-74%) Minimum of two criteria Yes Body Fat Depletion Moderate depletion (severe) Muscle Mass Moderate Depletion (severe) Protein-Calorie Malnutrition Severe #1 Nutrition Diagnosis Malnutrition Diagnosis Progress(for reassessment Continues documentation) Is patient on ventilator? No Is Patient Ambulatory and/or Out of Bed No [facility] 1589.184 Kcal/Kg value to use for calculation 35 Approximate Energy Requirements Using 2093 kcal/Kg Calculation Used for Recommendations Kcal/kg Additional Notes Pro needs 1.25-1.5g/k-87g /day Fluid needs 1ml/kcal Nutrition Intervention Change Diet Order: Current diet as ordered Add Supplement/Snack (indicate name/kcal Glucerna TID /protein ) Provides kCal: 660 Provides Protein (gm) 30 Goal #1 PO intake of meals plus ONS to meet 80-100% energy and pro needs Goal #2 Wound healing Goal #3 Wt maintenance and/or gain Anticipated Discharge Needs: Cardiac/Consistent Carb diet ( mechanical soft, if needed). Continue ONS 2-3 times daily for wt maintenance. Follow-Up By: 04/25/20 Additional Comments F/U for intakes, ONS needs, wt changes
--- NOTE | 2020-04-23 12:20 | Procedure Note ---
Date of procedure: 04/23/20 Pre-op diagnosis: 1) Stage 4 left hip pressure ulcer 2) Stage 4 sacral pressure ulcer Post-op diagnosis: same Procedure: Description of procedure: Pt was placed left hip up. The left hip was prepped and draped. Necrotic skin, SQ tissue, muscle and bone were surgically, excisionally debrided with forceps, scissors and scalpel. Bleeding was minimal and hemostasis was obtained with silver nitrate. The sacral area was then prepped and draped. Necrotic skin, SQ tissue, muscle and fascia were surgically, excisionally debrided with forceps, scissors and scalpel. Bleeding was minimal and hemostasis was obtained with silver nitrate. Pt tolerated the procedure well. Wounds were dressed by the Wound Care nurse. Post-debridement measurements: 1) Left hip - 7 X 8.5 X 3.8 cm 2) Sacrum - 10.5 X 9.5 X 1.3 cm Anesthesia: none Surgeon: DAMEON BELTRE Estimated blood loss: minimal Pathology: none Specimen disposition: discarded Condition: stable Disposition: no change
--- NOTE | 2020-04-23 13:54 | Progress Note ---
Assessment and Plan Cultures: 04/15/2020 urine culture: No growth 04/15/2020 blood culture: Proteus mirabilis A/P: 64-year-old male with CHF, diabetes, hypertension, [place] [facility] was admitted to the hospital with change in mental status: #Sepsis, secondary to gram-negative bacteremia likely source is multiple infected and necrotic decubiti: sacral and left hip #Proteus mirabilis bacteremia: Secondary to necrotic decubiti #Cachexia, severe protein calorie malnutrition, bedbound status #Cardiomyopathy, EF of 15 to 20% #DM uncontrolled Recs: -abx streamlined to IV ceftriaxone and Flagyl, treat for maximum of 14 days of abx. Prolonged antibiotics are going to be futile considering patient's overall clinical condition, comorbidities, nutritional status, bedbound status -Agree with debridement, Dr. Bahena performed today -White count may increase tomorrow after debridement. Js Herman MD [facility], [place], [facility] O: [phone] F: [phone] Subjective Date of service: 04/23/20 Principal diagnosis: AMS Interval history: White count slightly improved today, also had bedside debridement done today. Objective - Exam Narrative Exam: Physical Exam: Constitutional: Awake, alert. Cachexia + Head, Ears, Nose: Normocephalic, atraumatic. External ears, nose normal Eyes: Conjunctivae/corneas clear. No icterus. No ptosis. Neck: Supple, no meningeal signs Cardiovascular: S1, S2 normal. Respiratory: Good air entry, clear to auscultation bilaterally GI: Soft, non-tender; bowel sounds normal. No peritoneal signs Musculoskeletal: Multiple necrotic decubiti especially involving sacral and left hip region Skin: No rash or abscess Hem/Lymphatic: No palpable cervical or supraclavicular nodes. Psych: flat affect Neurological: Awake, alert. - Constitutional Vitals: Vital Signs Temp Pulse Resp BP Pulse Ox 97.8 F 83 12 145/106 86 04/23/20 07:48 04/23/20 10:59 04/23/20 07:48 04/23/20 10:59 04/23/20 07:48 Temperature -Last 24 Hours Temperature 97.8 F Temperature 97.8 F Temperature 98.4 F Temperature 98.7 F Temperature 97.5 F Temperature 97.6 F Temperature 98.2 F - Labs CBC & Chem 7: 04/23/20 05:57 04/23/20 05:57 Labs: Abnormal lab results 04/22/20 04/22/20 04/23/20 Range/Units 15:58 21:16 05:57 WBC (4.5-11.0) K/mm3 RBC (3.65-5.03) M/mm3 Hgb (11.8-15.2) gm/dl Hct (35.5-45.6) % RDW (13.2-15.2) % Sodium 135 L (137-145) mmol/L Carbon Dioxide 21 L (22-30) mmol/L Creatinine 0.7 L (0.8-1.3) mg/dL Glucose 206 H (75-100) mg/dL POC Glucose 140 H 139 H (70-105) mg/dL Calcium 8.2 L (8.4-10.2) mg/dL 04/23/20 04/23/20 04/23/20 Range/Units 05:57 07:21 11:27 WBC 17.9 H (4.5-11.0) K/mm3 RBC 3.36 L (3.65-5.03) M/mm3 Hgb 10.3 L (11.8-15.2) gm/dl Hct 31.5 L (35.5-45.6) % RDW 17.2 H (13.2-15.2) % Sodium (137-145) mmol/L Carbon Dioxide (22-30) mmol/L Creatinine (0.8-1.3) mg/dL Glucose (75-100) mg/dL POC Glucose 183 H 188 H (70-105) mg/dL Calcium (8.4-10.2) mg/dL
[2020-04-24] MEDS: metroNIDAZOLE/NS 500 MG/100 ML 500 MG/100 ML BAG IV SCH ×3 (03:19→20:34)
[2020-04-24 05:18] LABS: Hemoglobin 10.3 gm/dl (11.8-15.2); Mean Corpuscular HGB Conc 32 % (32-34); Mean Corpuscular Volume 94 fl (84-94); Platelet Count 362 K/mm3 (140-440); Red Blood Count 3.43 M/mm3 (3.65-5.03); Red Cell Distribution Width 17.8 % (13.2-15.2)
[2020-04-24 06:30] LABS: Anisocytosis 1+; Hypochromasia 1+; Platelet Estimate Consistent w Auto; Total Cells Counted 100
[2020-04-24] MEDS: INSULIN LISPRO 100 UNIT/ML SUB-Q SCH ×4 (09:00→22:35)
--- NOTE | 2020-04-24 10:09 | Progress Note ---
Assessment and Plan S/p debridement yesterday. tele reviewed - in AFib/AFlutter HR 130s. Optimize HR - d/c PO amio and initiate digoxin, cont PO lopressor as BPs permit. Cont lisinopril in setting of CMP. Plan for initiation of systemic AC if/when ok per general surgery. The patient has been seen in conjunction with Dr. Bermudez who agrees with the assessment and plan of care. - Patient Problems (1) AMS (altered mental status) Current Visit: Yes Status: Acute (2) Pressure ulcer of sacral region, stage 4 Current Visit: Yes Status: Chronic (3) Sepsis Current Visit: Yes Status: Suspected Qualifiers: Severe sepsis shock status: without septic shock (4) Atrial fibrillation with RVR Current Visit: Yes Status: Acute (5) Hypoxia Current Visit: Yes Status: Acute (6) Cardiomyopathy Current Visit: Yes Status: Chronic (7) HTN (hypertension) Current Visit: Yes Status: Chronic (8) Diabetes Current Visit: Yes Status: Chronic Subjective Date of service: 04/24/20 Principal diagnosis: AMS Interval history: pt resting in bed, remains confused. s/p debridement yesterday. tele reviewed - in AFib/AFlutter HR 130s. Objective Last Vital Signs Temp 97.9 F 04/24/20 03:38 Pulse 145 H 04/24/20 03:38 Resp 16 04/24/20 03:38 BP 96/63 04/24/20 03:38 Pulse Ox 98 04/24/20 03:38 - Physical Examination General: Other (confused) HEENT: Positive: PERRL Neck: Positive: neck supple, trachea midline Cardiac: Positive: irregularly irregular, S1/S2, Tachycardia Lungs: Positive: Decreased Breath Sounds Neuro: Positive: Other (confused) Abdomen: Negative: Tender Skin: Positive: Wound (decubitus ulcer). Negative: Rash - Labs and Meds CBC 04/24/20 Range/Units 05:03 WBC 20.2 H (4.5-11.0) K/mm3 RBC 3.43 L (3.65-5.03) M/mm3 Hgb 10.3 L (11.8-15.2) gm/dl Hct 32.0 L (35.5-45.6) % Plt Count 362 (140-440) K/mm3 - Imaging and Cardiology EKG: report reviewed, image reviewed Echo: report reviewed (EF 15-20%, LV mildly dilated) - Telemetry EKG Rhythm: Atrial Fibrillation
--- NOTE | 2020-04-24 10:49 | Progress Note ---
Assessment and Plan Assessment and plan: --COVID-19 test; negative 04/16/2020 --COVID-19 test; positive 04/24/2020 --COVID-19 infection; Contact and droplet isolation ID already following Inflammatory markers. Oxygen evaluation Supportive care Transfer to [facility] --Stage IV sacral decubitus ulcer; s/p surgical wound debridement Patient tolerated the procedure well Could not contact family, two-physician signed consent Continue antibiotics supportive care Continue wound care --Severe gram-negative sepsis gram-negative bacteremia[Proteus]2:2 ID evaluation noted and appreciated DC'd Vanco cefepime , started on Rocephin and Flagyl --A. fib with RVR; now rate controlled s/p amiodarone drip , continue beta-blockers Defer starting anticoagulants to cardiology --Severe cardiomyopathy; EF 15 to 20% New onset, patient may need ischemia work-up, if not done already Cardiology following, cont Antifailure medications, diuretics --Decubitus ulcers/infected leg ulcers ID changed Abx to Rocephin and Flagyl --Elevated D-dimers; CTA chest negative for PE --Severe protein calorie malnutrition; Albumin 2.5, BMI 19.4, Treat the underlying cause Nutrition supplements, Nutrition consult --Type 2 diabetes mellitus/hyperglycemia Accu-Chek sliding scale coverage ADA diet Insulin as needed, A1c 7.7% --DVT prophylaxis;Lovenox --Full CODE STATUS We will closely monitor the patient and adjust the management as needed Plan of care reviewed with the patient and his nurse Cardiology evaluation recommendations noted and appreciated 04/18/2020; patient has A. fib with rapid ventricular rate, cardiology planning amiodarone drip We will transfer the patient to telemetry floor and closely monitor 04/19/2020; patient's blood culturesx2 positive for gram-negative Proteus ID consulted 04/20/2020 ID evaluation noted and appreciated , ID discontinued Vanco cefepime, And started Flagyl and Rocephin 04/22/2020; two-physician consent in the chart, possible surgical wound debridement tomorrow Heparin held, patient placed n.p.o. from midnight 04/23/2020;s/p surgical debridement of sacral decubitus ulcer today, patient tolerated the procedure Continue antibiotics and supportive care 04/24/2020; continue wound care, antibiotics per ID, follow surgery recommendations Discharge when medically stable COVID-19 test positive, isolation precautions, transfer to Covid floor MedSur ID already following History Interval history: I have seen and examined the patient at the bedside Patient's chart and medications reviewed Patient underwent sacral decubitus ulcer surgical debridement Minimally communicative not in acute distress Vital signs noted Hospitalist Physical - Constitutional Vitals: Temp Pulse Resp BP Pulse Ox 97.9 F 145 H 16 96/63 98 04/24/20 03:38 04/24/20 03:38 04/24/20 03:38 04/24/20 03:38 04/24/20 03:38 General appearance: Present: no acute distress, well-nourished, other (confused) - EENT Eyes: Present: PERRL, EOM intact - Neck Neck: Present: supple, normal ROM - Respiratory Respiratory effort: normal Respiratory: bilateral: diminished, rhonchi, negative: rales, wheezing - Cardiovascular Rhythm: regular Heart Sounds: Present: S1 & S2 - Extremities Extremities: no ischemia, abnormal (Decubitus ulcers) Extremity abnormal: edema - Abdominal General gastrointestinal: soft, non-tender, non-distended, normal bowel sounds - Integumentary Integumentary: Present: erythema (Stage IV sacral decubitus ulcer) - Psychiatric Psychiatric: cooperative, other (Confused at times) - Neurologic Neurologic: moves all extremities (Residual weakness) HEART Score - HEART Score Troponin: Troponin T 0.154 ng/mL (0.00-0.029) H* 04/16/20 07:45 Results - Labs CBC & Chem 7: 04/24/20 05:03 04/23/20 05:57 Labs: Laboratory Last Values WBC 20.2 K/mm3 (4.5-11.0) H 04/24/20 05:03 RBC 3.43 M/mm3 (3.65-5.03) L 04/24/20 05:03 Hgb 10.3 gm/dl (11.8-15.2) L 04/24/20 05:03 Hct 32.0 % (35.5-45.6) L 04/24/20 05:03 MCV 94 fl (84-94) 04/24/20 05:03 MCH 30 pg (28-32) 04/24/20 05:03 MCHC 32 % (32-34) 04/24/20 05:03 RDW 17.8 % (13.2-15.2) H 04/24/20 05:03 Plt Count 362 K/mm3 (140-440) 04/24/20 05:03 Lymph % (Auto) 5.0 % (13.4-35.0) L 04/17/20 05:24 [place] % (Auto) 4.1 % (0.0-7.3) 04/17/20 05:24 Eos % (Auto) 0.0 % (0.0-4.3) 04/17/20 05:24 Baso % (Auto) 0.0 % (0.0-1.8) 04/17/20 05:24 Lymph # (Auto) 1.1 K/mm3 (1.2-5.4) L 04/17/20 05:24 [place] # (Auto) 0.9 K/mm3 (0.0-0.8) H 04/17/20 05:24 Eos # (Auto) 0.0 K/mm3 (0.0-0.4) 04/17/20 05:24 Baso # (Auto) 0.0 K/mm3 (0.0-0.1) 04/17/20 05:24 Add Manual Diff Complete 04/24/20 05:03 Total Counted 100 04/24/20 05:03 Seg Neutrophils % 90.9 % (40.0-70.0) H 04/17/20 05:24 Seg Neuts % (Manual) 93.0 % (40.0-70.0) H 04/24/20 05:03 Band Neutrophils % 3.0 % 04/15/20 15:07 Lymphocytes % (Manual) 5.0 % (13.4-35.0) L 04/24/20 05:03 Monocytes % (Manual) 2.0 % (0.0-7.3) 04/24/20 05:03 Nucleated RBC % Not Reportable 04/24/20 05:03 Seg Neutrophils # 19.2 K/mm3 (1.8-7.7) H 04/17/20 05:24 Seg Neutrophils # Man 18.8 K/mm3 (1.8-7.7) H 04/24/20 05:03 Band Neutrophils # 0.0 K/mm3 04/24/20 05:03 Lymphocytes # (Manual) 1.0 K/mm3 (1.2-5.4) L 04/24/20 05:03 Abs React Lymphs (Man) 0.0 K/mm3 04/24/20 05:03 Monocytes # (Manual) 0.4 K/mm3 (0.0-0.8) 04/24/20 05:03 Eosinophils # (Manual) 0.0 K/mm3 (0.0-0.4) 04/24/20 05:03 Basophils # (Manual) 0.0 K/mm3 (0.0-0.1) 04/24/20 05:03 Metamyelocytes # 0.0 K/mm3 04/24/20 05:03 Myelocytes # 0.0 K/mm3 04/24/20 05:03 Promyelocytes # 0.0 K/mm3 04/24/20 05:03 Blast Cells # 0.0 K/mm3 04/24/20 05:03 WBC Morphology Not Reportable 04/24/20 05:03 Hypersegmented Neuts Not Reportable 04/24/20 05:03 Hyposegmented Neuts Not Reportable 04/24/20 05:03 Hypogranular Neuts Not Reportable 04/24/20 05:03 Smudge Cells Not Reportable 04/24/20 05:03 Toxic Granulation Not Reportable 04/24/20 05:03 Toxic Vacuolation Not Reportable 04/24/20 05:03 Dohle Bodies Not Reportable 04/24/20 05:03 Pelger-Huet Anomaly Not Reportable 04/24/20 05:03 Gregorio Rods Not Reportable 04/24/20 05:03 Platelet Estimate Consistent w auto 04/24/20 05:03 Clumped Platelets Not Reportable 04/24/20 05:03 Plt Clumps, EDTA Not Reportable 04/24/20 05:03 Large Platelets Not Reportable 04/24/20 05:03 Giant Platelets Not Reportable 04/24/20 05:03 Platelet Satelliting Not Reportable 04/24/20 05:03 Plt Morphology Comment Not Reportable 04/24/20 05:03 RBC Morphology Not Reportable 04/24/20 05:03 Dimorphic RBCs Not Reportable 04/24/20 05:03 Polychromasia Not Reportable 04/24/20 05:03 Hypochromasia 1+ 04/24/20 05:03 Poikilocytosis Not Reportable 04/24/20 05:03 Anisocytosis 1+ 04/24/20 05:03 Microcytosis Not Reportable 04/24/20 05:03 Macrocytosis Not Reportable 04/24/20 05:03 Spherocytes Not Reportable 04/24/20 05:03 Pappenheimer Bodies Not Reportable 04/24/20 05:03 Sickle Cells Not Reportable 04/24/20 05:03 Target Cells Not Reportable 04/24/20 05:03 Tear Drop Cells Not Reportable 04/24/20 05:03 Ovalocytes Not Reportable 04/24/20 05:03 Helmet Cells Not Reportable 04/24/20 05:03 [place] Bodies Not Reportable 04/24/20 05:03 [place] Rings Not Reportable 04/24/20 05:03 Ki Cells Not Reportable 04/24/20 05:03 Bite Cells Not Reportable 04/24/20 05:03 Crenated Cell Not Reportable 04/24/20 05:03 Elliptocytes Not Reportable 04/24/20 05:03 Acanthocytes (Spur) Not Reportable 04/24/20 05:03 Rouleaux Not Reportable 04/24/20 05:03 Hemoglobin C Crystals Not Reportable 04/24/20 05:03 Schistocytes Not Reportable 04/24/20 05:03 Malaria parasites Not Reportable 04/24/20 05:03 Bal[place]inder Bodies Not Reportable 04/24/20 05:03 Hem Pathologist Commnt No 04/24/20 05:03 APTT 40.2 Sec. (24.2-36.6) H 04/15/20 15:07 D-Dimer 801.82 ng/mlDDU (0-234) H 04/15/20 15:07 ABG pH 7.423 pH Units (7.350-7.450) 04/15/20 15:35 ABG pCO2 46.4 mm Hg 04/15/20 15:35 ABG pO2 56.2 mm Hg (80.0-90.0) L 04/15/20 15:35 ABG HCO3 29.6 mmol/L (20.0-26.0) H 04/15/20 15:35 ABG O2 Saturation 87.3 % (95.0-99.0) L 04/15/20 15:35 ABG O2 Content 14.0 (0.0-44) 04/15/20 15:35 ABG Base Excess 4.5 mmol/L (-2.0-3.0) H 04/15/20 15:35 ABG Hemoglobin 11.6 gm/dl (14.0-18.0) L 04/15/20 15:35 ABG Carboxyhemoglobin 1.5 % (0.0-5.0) 04/15/20 15:35 ABG Methemoglobin 0.5 % (0.0-1.5) 04/15/20 15:35 Oxyhemoglobin 85.6 % (95.0-99.0) L 04/15/20 15:35 FiO2 21 % 04/15/20 15:35 Sodium 135 mmol/L (137-145) L 04/23/20 05:57 Potassium 3.8 mmol/L (3.6-5.0) 04/23/20 05:57 Chloride 102.9 mmol/L (98-107) 04/23/20 05:57 Carbon Dioxide 21 mmol/L (22-30) L 04/23/20 05:57 Anion Gap 15 mmol/L 04/23/20 05:57 BUN 20 mg/dL (9-20) 04/23/20 05:57 Creatinine 0.7 mg/dL (0.8-1.3) L 04/23/20 05:57 Estimated GFR > 60 ml/min 04/23/20 05:57 BUN/Creatinine Ratio 29 % 04/23/20 05:57 Glucose 206 mg/dL (75-100) H 04/23/20 05:57 POC Glucose 185 mg/dL (70-105) H 04/24/20 07:59 Hemoglobin A1c 7.7 % (4-6) H 04/16/20 07:45 Lactic Acid 1.70 mmol/L (0.7-2.0) 04/15/20 17:56 Calcium 8.2 mg/dL (8.4-10.2) L 04/23/20 05:57 Magnesium 1.90 mg/dL (1.7-2.3) 04/21/20 05:06 Ferritin 469.2 ng/mL (30.0-300.0) H 04/15/20 15:07 Total Bilirubin 0.80 mg/dL (0.1-1.2) 04/17/20 05:24 AST 38 units/L (5-40) 04/17/20 05:24 ALT 19 units/L (7-56) 04/17/20 05:24 Alkaline Phosphatase 158 units/L (35-129) H 04/17/20 05:24 Ammonia 24.0 umol/L (25-60) L 04/15/20 15:07 Lactate Dehydrogenase 193 units/L (91-180) H 04/15/20 15:07 Total Creatine Kinase 256 units/L (55-170) H 04/16/20 07:45 CK-MB (CK-2) 6.2 ng/mL (0.0-4.0) H 04/16/20 07:45 CK-MB (CK-2) Rel Index 2.4 (0-4) 04/16/20 07:45 Troponin T 0.154 ng/mL (0.00-0.029) H* 04/16/20 07:45 C-Reactive Protein 17.50 mg/dL (0.00-1.30) H 04/15/20 15:07 NT-Pro-B Natriuret Pep 5804 pg/mL (0-900) H 04/15/20 15:07 Total Protein 5.8 g/dL (6.3-8.2) L 04/17/20 05:24 Albumin 2.4 g/dL (3.9-5) L 04/17/20 05:24 Albumin/Globulin Ratio 0.7 % 04/17/20 05:24 Triglycerides 79 mg/dL (2-149) 04/15/20 15:07 Cholesterol 78 mg/dL (50-199) 04/15/20 15:07 LDL Cholesterol Direct 33 mg/dL (50-130) L 04/15/20 15:07 HDL Cholesterol 32 mg/dL (40-59) L 04/15/20 15:07 Cholesterol/HDL Ratio 2.43 % 04/15/20 15:07 Procalcitonin 0.16 ng/mL (<0.15) 04/15/20 15:07 Urine Color Yellow (Yellow) 04/15/20 15:04 Urine Turbidity Clear (Clear) 04/15/20 15:04 Urine pH 5.0 (5.0-7.0) 04/15/20 15:04 Ur Specific [place] 1.018 (1.003-1.030) 04/15/20 15:04 Urine Protein 30 mg/dl mg/dL (Negative) 04/15/20 15:04 Urine Glucose (UA) Neg mg/dL (Negative) 04/15/20 15:04 Urine Ketones Neg mg/dL (Negative) 04/15/20 15:04 Urine Blood Neg (Negative) 04/15/20 15:04 Urine Nitrite Neg (Negative) 04/15/20 15:04 Urine Bilirubin Neg (Negative) 04/15/20 15:04 Urine Urobilinogen 4.0 mg/dL (<2.0) 04/15/20 15:04 Ur Leukocyte Esterase Neg (Negative) 04/15/20 15:04 Urine WBC (Auto) 2.0 /HPF (0.0-6.0) 04/15/20 15:04 Urine RBC (Auto) 1.0 /HPF (0.0-6.0) 04/15/20 15:04 Vancomycin Trough 20.7 ug/mL (5.0-20.0) H 04/19/20 01:26 Coronavirus (PCR) Negative (Negative) 04/16/20 Unknown Microbiology: Microbiology 04/21/20 14:38 Peripheral/Venous Blood Culture - Preliminary NO GROWTH AFTER 48 HOURS 04/21/20 14:38 Peripheral/Venous Blood Culture - Preliminary NO GROWTH AFTER 48 HOURS Campos/IV: Voiding Method Incontinent Active Medications - Current Medications Current Medications: Generic Name Dose Route Start Last Admin Trade Name Freq PRN Reason Stop Dose Admin Acetaminophen 650 mg 04/15/20 22:34 04/24/20 03:57 Acetaminophen 325 Mg Tab PO 650 mg Q4H PRN Administration Pain MILD(1-3)/Fever >100.5/ENRIQUEZ Digoxin 0.25 mg 04/24/20 12:00 Digoxin 0.5 Mg/2 Ml Inj IV 04/24/20 18:01 Q6H RIKA Famotidine 20 mg 04/17/20 22:00 04/23/20 21:09 Famotidine 20 Mg Tab PO 20 mg BID RIKA Administration Hydromorphone HCl 0.5 mg 04/15/20 22:34 04/23/20 11:07 Hydromorphone 1 Mg/1 Ml Inj IV 0.5 mg Q3H PRN Administration Pain , Severe (7-10) Ceftriaxone Sodium 2 gm in 100 mls @ 200 mls/hr 04/20/20 12:00 04/23/20 11:10 Rocephin/Ns 2 Gm/100 Ml IV 05/03/20 10:29 200 mls/hr Q24HR RIKA Administration Protocol Metronidazole 500 mg in 100 mls @ 100 mls/hr 04/20/20 12:00 04/24/20 03:19 Flagyl 500 Mg/100 Ml IV 05/04/20 04:59 100 mls/hr Q8H RIKA Administration Protocol Insulin Human Lispro 0 unit 04/16/20 07:30 04/23/20 21:11 Insulin Lispro 100 Unit/Ml SUB-Q Not Given ACHS [facility] Protocol Lisinopril 5 mg 04/18/20 10:00 04/23/20 10:58 Lisinopril 5 Mg Tab PO 5 mg QDAY RIKA Administration Metoprolol Tartrate 25 mg 04/22/20 22:00 04/23/20 21:11 Metoprolol Tartrate 25 Mg Tab PO Not Given BID RIKA Ondansetron HCl 4 mg 04/15/20 22:34 Ondansetron 4 Mg/2 Ml Inj IV Q3H PRN Nausea And Vomiting Oxycodone/Acetaminophen 1 tab 04/15/20 22:34 04/21/20 00:11 Oxycodone /Acetaminophen 5-325mg Tab PO 1 tab Q6H PRN Administration Pain, Moderate (4-6) Sodium Chloride 10 ml 04/16/20 10:00 04/23/20 21:10 Sodium Chloride 0.9% 10 Ml Flush Syringe IV 10 ml BID RIKA Administration Sodium Chloride 10 ml 04/15/20 22:34 Sodium Chloride 0.9% 10 Ml Flush Syringe IV PRN PRN LINE FLUSH Sodium Hypochlorite 1 applic 04/16/20 11:00 04/23/20 21:10 Sodium Hypochlorite, Dakin's 1/2 Strength (0.25%) 473 Ml Topical Soln TP 1 applicatio BID RIKA Administration Nutrition/Malnutrition Assess - Dietary Evaluation Nutrition/Malnutrition Findings: Nutrition Notes Start: 04/19/20 11:44 Freq: Status: Active Protocol: Document 04/22/20 14:05 AL (Rec: 04/22/20 14:15 AL [id number]) Co-Sign 04/22/20 14:05 LP Nutrition Notes Need for Assessment generated from: MD Order Initial or Follow up Reassessment Current Diagnosis Diabetes,Sepsis,Heart Failure, Malnutrition Other Pertinent Diagnosis Multiple infected wounds, severe cardiomyopathy Current Diet Pureed Diet Labs/Tests 04/21 Na 131 BUN 24 Cr .7 A1C 7.7 Pertinent Medications Reviewed Height 5 ft 5 in Weight 59.8 kg [place] Body Weight (kg) 61.81 BMI 21.9 Weight Status Underweight Subjective/Other Information FU for intakes. Pt admits to consuming approximately 60% of meals and drinks 1-2 Glucerna shakes daily. Percent of energy/protein needs met: 83%/91% Burn Absent Trauma Absent Difficulty In Chewing Skin Integrity/Comment Brian score: 12 Current % PO Fair (50-74%) Minimum of two criteria Yes Body Fat Depletion Moderate depletion (severe) Muscle Mass Moderate Depletion (severe) Protein-Calorie Malnutrition Severe #1 Nutrition Diagnosis Malnutrition Diagnosis Progress(for reassessment Continues documentation) Is patient on ventilator? No Is Patient Ambulatory and/or Out of Bed No REE-([facility]-confined to bed) 1589.184 Kcal/Kg value to use for calculation 35 Approximate Energy Requirements Using 2093 kcal/Kg Calculation Used for Recommendations Kcal/kg Additional Notes Pro needs 1.25-1.5g/k-87g /day Fluid needs 1ml/kcal Nutrition Intervention Change Diet Order: Current diet as ordered Add Supplement/Snack (indicate name/kcal Glucerna TID /protein ) Provides kCal: 660 Provides Protein (gm) 30 Goal #1 PO intake of meals plus ONS to meet 80-100% energy and pro needs Goal #2 Wound healing Goal #3 Wt maintenance and/or gain Anticipated Discharge Needs: Cardiac/Consistent Carb diet ( mechanical soft, if needed). Continue ONS 2-3 times daily for wt maintenance. Follow-Up By: 04/25/20 Additional Comments F/U for intakes, ONS needs, wt changes
[2020-04-24] MEDS: LISINOPRIL 5 MG TAB PO SCH (12:00)
[2020-04-24] MEDS: METOPROLOL TARTRATE 25 MG TAB PO SCH ×2 (12:00→22:30)
--- NOTE | 2020-04-24 12:09 | Progress Note ---
Assessment and Plan Cultures: 04/15/2020 urine culture: No growth 04/15/2020 blood culture: Proteus mirabilis A/P: 64-year-old male with CHF, diabetes, hypertension, shelter resident was admitted to the hospital with change in mental status: #Sepsis, secondary to gram-negative bacteremia likely source is multiple infected and necrotic decubiti: sacral and left hip #Proteus mirabilis bacteremia: Secondary to necrotic decubiti #Cachexia, severe protein calorie malnutrition, bedbound status #Cardiomyopathy, EF of 15 to 20% #DM uncontrolled Recs: -abx streamlined to IV ceftriaxone and Flagyl, treat for maximum of 14 days of abx. Prolonged antibiotics are going to be futile considering patient's overall clinical condition, comorbidities, nutritional status, bedbound status -Presumed white count increased secondary to debridement performed yesterday Js Herman MD [facility] O: [phone] F: [phone] Subjective Date of service: 04/24/20 Principal diagnosis: AMS Interval history: Afebrile, white count increased to 20.2. Objective - Exam Narrative Exam: Physical Exam: Constitutional: Awake, alert. Cachexia + Head, Ears, Nose: Normocephalic, atraumatic. External ears, nose normal Eyes: Conjunctivae/corneas clear. No icterus. No ptosis. Neck: Supple, no meningeal signs Cardiovascular: S1, S2 normal. Respiratory: Good air entry, clear to auscultation bilaterally GI: Soft, non-tender; bowel sounds normal. No peritoneal signs Musculoskeletal: Multiple necrotic decubiti especially involving sacral and left hip region Skin: No rash or abscess Hem/Lymphatic: No palpable cervical or supraclavicular nodes. Psych: flat affect Neurological: Awake, alert. - Constitutional Vitals: Vital Signs Temp Pulse Resp BP Pulse Ox 97.9 F 145 H 16 96/63 98 04/24/20 03:38 04/24/20 03:38 04/24/20 03:38 04/24/20 03:38 04/24/20 03:38 Temperature -Last 24 Hours Temperature 97.9 F Temperature 98.2 F Temperature 97.5 F Temperature 97.3 F Temperature 98.0 F Temperature 97.3 F - Labs CBC & Chem 7: 04/24/20 05:03 04/23/20 05:57 Labs: Abnormal lab results 04/23/20 04/23/20 04/24/20 Range/Units 15:50 20:10 05:03 WBC 20.2 H (4.5-11.0) K/mm3 RBC 3.43 L (3.65-5.03) M/mm3 Hgb 10.3 L (11.8-15.2) gm/dl Hct 32.0 L (35.5-45.6) % RDW 17.8 H (13.2-15.2) % Seg Neuts % (Manual) 93.0 H (40.0-70.0) % Lymphocytes % (Manual) 5.0 L (13.4-35.0) % Seg Neutrophils # Man 18.8 H (1.8-7.7) K/mm3 Lymphocytes # (Manual) 1.0 L (1.2-5.4) K/mm3 POC Glucose 176 H 175 H (70-105) mg/dL 04/24/20 Range/Units 07:59 WBC (4.5-11.0) K/mm3 RBC (3.65-5.03) M/mm3 Hgb (11.8-15.2) gm/dl Hct (35.5-45.6) % RDW (13.2-15.2) % Seg Neuts % (Manual) (40.0-70.0) % Lymphocytes % (Manual) (13.4-35.0) % Seg Neutrophils # Man (1.8-7.7) K/mm3 Lymphocytes # (Manual) (1.2-5.4) K/mm3 POC Glucose 185 H (70-105) mg/dL
[2020-04-24] MEDS: DIGOXIN 0.5 MG/2 ML INJ IV SCH ×3 (13:22→22:41)
[2020-04-24] MEDS: FAMOTIDINE 20 MG TAB PO SCH ×2 (13:28→22:45)
[2020-04-24] MEDS: cefTRIAXone/NS 2 GM/100 ML 2 GM/100 ML BAG IV SCH ×2 (13:28→13:33)
[2020-04-24] MEDS: SODIUM HYPOCHLORITE, DAKIN'S 1/2 STRENGTH (0.25%) 473 ML TOPICAL SOLN TP SCH ×2 (13:42→22:55)
[2020-04-25] MEDS: DIGOXIN 0.5 MG/2 ML INJ IV SCH ×6 (03:33→22:20)
[2020-04-25] MEDS: metroNIDAZOLE/NS 500 MG/100 ML 500 MG/100 ML BAG IV SCH ×3 (04:17→22:12)
[2020-04-25] MEDS: SODIUM HYPOCHLORITE, DAKIN'S 1/2 STRENGTH (0.25%) 473 ML TOPICAL SOLN TP SCH ×3 (10:00→23:42)
--- NOTE | 2020-04-25 10:19 | Progress Note ---
Assessment and Plan S/p debridement 04/23/2020. Repeat COVID-19 testing yesterday is POSITIVE. Further management per primary team. tele reviewed - in AFib/AFlutter HR 90s overnight although currently HR 130s. Optimize HR - give additional 2 doses of IV digoxin today, cont PO lopressor as BPs permit. Cont lisinopril in setting of CMP. Plan for initiation of systemic AC if/when ok per general surgery. The patient has been seen in conjunction with Dr. Bermudez who agrees with the assessment and plan of care. - Patient Problems (1) AMS (altered mental status) Current Visit: Yes Status: Acute (2) Pressure ulcer of sacral region, stage 4 Current Visit: Yes Status: Chronic (3) COVID-19 virus infection Current Visit: Yes Status: Acute (4) Sepsis Current Visit: Yes Status: Suspected Qualifiers: Severe sepsis shock status: without septic shock (5) Atrial fibrillation with RVR Current Visit: Yes Status: Acute (6) Hypoxia Current Visit: Yes Status: Acute (7) Cardiomyopathy Current Visit: Yes Status: Chronic (8) HTN (hypertension) Current Visit: Yes Status: Chronic (9) Diabetes Current Visit: Yes Status: Chronic Subjective Date of service: 04/25/20 Principal diagnosis: AMS Interval history: pt resting in bed, remains confused. tele reviewed - in AFib/AFlutter HR 90s overnight although currently HR 130s. Objective Last Vital Signs Temp 98.1 F 04/25/20 04:39 Pulse 71 04/25/20 03:34 Resp 20 04/25/20 04:39 BP 93/68 04/25/20 04:39 Pulse Ox 95 04/24/20 22:22 - Physical Examination General: Other (confused) HEENT: Positive: PERRL Neck: Positive: neck supple, trachea midline Cardiac: Positive: irregularly irregular, S1/S2, Tachycardia Lungs: Positive: Decreased Breath Sounds Neuro: Positive: Other (confused) Abdomen: Negative: Tender Skin: Positive: Wound (decubitus ulcer). Negative: Rash - Imaging and Cardiology EKG: report reviewed, image reviewed Echo: report reviewed (EF 15-20%, LV mildly dilated) - Telemetry EKG Rhythm: Atrial Fibrillation
[2020-04-25] MEDS: INSULIN LISPRO 100 UNIT/ML SUB-Q SCH ×4 (10:21→23:39)
[2020-04-25] MEDS: cefTRIAXone/NS 2 GM/100 ML 2 GM/100 ML BAG IV SCH (10:24)
[2020-04-25] MEDS: FAMOTIDINE 20 MG TAB PO SCH ×2 (10:25→22:17)
[2020-04-25] MEDS: LISINOPRIL 5 MG TAB PO SCH (10:25)
[2020-04-25] MEDS: METOPROLOL TARTRATE 25 MG TAB PO SCH ×2 (10:25→22:16)
--- NOTE | 2020-04-25 12:49 | Progress Note ---
Assessment and Plan Cultures: 04/15/2020 urine culture: No growth 04/15/2020 blood culture: Proteus mirabilis 04/21/2020 blood culture: no growth. A/P: 64-year-old male with CHF, diabetes, hypertension, senior living resident was admitted to the hospital with change in mental status: #Sepsis, secondary to gram-negative bacteremia likely source is multiple infected and necrotic decubiti: sacral and left hip #Proteus mirabilis bacteremia: Secondary to necrotic decubiti #Cachexia, severe protein calorie malnutrition, bedbound status #Cardiomyopathy, EF of 15 to 20% #DM uncontrolled #COVID: not presently hypoxic, continue to monitor. Was negative earlier on admission. Recs: -abx streamlined to IV ceftriaxone and Flagyl, treat for maximum of 14 days of abx. Prolonged antibiotics are going to be futile considering patient's overall clinical condition, comorbidities, nutritional status, bedbound status. -OK to DC with Levaquin 750mg q24h and metronidazole 500mg q8h until 04/29/2020 -Presumed white count increased secondary to debridement performed day prior -Repeat white count 04/26/2020 -Not currently hypoxic, but COVID now positive. If develops hypoxia and requiring supplemental O2 would start dexamethasone and remdesivir. -To be returning to [facility]. Js Herman MD [facility] O: [phone] F: [phone] Subjective Date of service: 04/25/20 Principal diagnosis: AMS Interval history: Afebrile, white count still elevated. Covid repeat testing now positive. He was hypoxic yesterday morning, however no longer Objective - Exam Narrative Exam: Physical Exam: Constitutional: Awake, alert. Cachexia + Head, Ears, Nose: Normocephalic, atraumatic. External ears, nose normal Eyes: Conjunctivae/corneas clear. No icterus. No ptosis. Neck: Supple, no meningeal signs Cardiovascular: S1, S2 normal. Respiratory: Good air entry, clear to auscultation bilaterally GI: Soft, non-tender; bowel sounds normal. No peritoneal signs Musculoskeletal: Multiple necrotic decubiti especially involving sacral and left hip region Skin: No rash or abscess Hem/Lymphatic: No palpable cervical or supraclavicular nodes. Psych: flat affect Neurological: Awake, alert. - Constitutional Vitals: Vital Signs Temp Pulse Resp BP Pulse Ox 98.1 F 71 20 93/68 95 04/25/20 04:39 04/25/20 03:34 04/25/20 04:39 04/25/20 04:39 04/24/20 22:22 Temperature -Last 24 Hours Temperature 98.1 F Temperature 98.9 F Temperature 98.1 F Temperature 98.0 F - Labs CBC & Chem 7: 04/24/20 05:03 04/23/20 05:57 Labs: Abnormal lab results 04/24/20 04/24/20 04/24/20 Range/Units 11:41 20:49 22:19 POC Glucose 172 H 195 H 166 H (70-105) mg/dL Coronavirus (PCR) (Negative) 04/24/20 04/25/20 04/25/20 Range/Units Unknown 07:48 11:36 POC Glucose 153 H 200 H (70-105) mg/dL Coronavirus (PCR) Positive A (Negative)
[2020-04-26] MEDS: metroNIDAZOLE/NS 500 MG/100 ML 500 MG/100 ML BAG IV SCH ×3 (06:15→21:48)
--- NOTE | 2020-04-26 08:30 | Progress Note ---
Assessment and Plan - Patient Problems (1) Acute encephalopathy Current Visit: Yes Status: Acute Plan to address problem: Secondary to sepsis and decubitus ulcer infections White count is about 23,000 (2) Sepsis Current Visit: Yes Status: Suspected Qualifiers: Severe sepsis shock status: without septic shock Plan to address problem: Secondary to decubitus ulcers and leg ulcers which are infected Wound care requested Surgery consult if necessary Patient initiated on IV cefepime and vancomycin (3) CHF (congestive heart failure) Current Visit: Yes Status: Chronic Qualifiers: Heart failure type: combined systolic and diastolic Plan to address problem: Echocardiogram for ejection fraction--15 percent (4) Hyperkalemia Current Visit: Yes Status: Acute Plan to address problem: Mild Calcium gluconate given (5) T2DM (type 2 diabetes mellitus) Current Visit: Yes Status: Chronic Qualifiers: Diabetes mellitus terminal makeup operator insulin use: without terminal makeup operator use Plan to address problem: I doubt whether he has diabetes His A1c is 4.8 Coverage if necessary (6) DVT prophylaxis Current Visit: Yes Status: Acute Plan to address problem: On heparin and GI prophylaxis (7) CHF (congestive heart failure) Current Visit: Yes Status: Acute Subjective Date of service: 04/25/20 Principal diagnosis: Acute encephalopathy,Sepsis,CFH/CMP Interval history: 64-year-old male with history of congestive heart failure and diabetes presents to the emergency room from [facility] with low oxygen saturations and mental status. Patient has multiple decubitus ulcers on sacrum and both of the legs. Fever present. Patient was given IV fluid bolus via EMS. Patient altered and not able to answer any of my questions. Also lethargic. Low-grade fever present. Patient is also cachectic. His oxygen levels were in the 80s and was placed on 3 L nasal cannula oxygen with saturations improving to 94%. Patient has a history of congestive heart failure diabetes and atrial fibrillation. No recent exposure to coronavirus. Objective - Constitutional Vitals: Vital Signs - 12hr 04/25/20 04/25/20 04/25/20 22:09 22:16 22:20 Temperature Pulse Rate 96 H 96 H Respiratory Rate Blood Pressure 132/81 132/81 132/81 O2 Sat by Pulse Oximetry 04/25/20 04/26/20 04/26/20 23:19 04:22 04:37 Temperature 97.3 F L Pulse Rate 96 H Respiratory 20 Rate Blood Pressure 153/69 O2 Sat by Pulse 93 100 Oximetry General appearance: Present: no acute distress, well-nourished - EENT Eyes: PERRL, EOM intact ENT: hearing intact, clear oral mucosa Ears: bilateral: normal - Neck Neck: supple, normal ROM - Respiratory Respiratory effort: normal Respiratory: bilateral: CTA - Breasts Breasts: normal - Cardiovascular Heart rate: 78 Rhythm: regular Heart Sounds: Present: S1 & S2. Absent: gallop, rub Extremities: pulses intact, No edema, normal color, Full ROM, abnormal (Decub ulcers) Extremity abnormal: other (Sacral decub ulcers) - Gastrointestinal General gastrointestinal: Present: soft, non-tender, non-distended, normal bowel sounds - Genitourinary Male genitourinary: normal - Integumentary Integumentary: clear, warm, dry - Musculoskeletal Musculoskeletal: 1, strength equal bilaterally - Neurologic Neurologic: moves all extremities - Psychiatric Psychiatric: memory intact, appropriate mood/affect, intact judgment & insight - Labs CBC & Chem 7: 04/24/20 05:03 04/23/20 05:57 Labs: Abnormal lab results 04/25/20 04/25/20 04/25/20 Range/Units 07:48 11:36 16:17 POC Glucose 153 H 200 H 238 H (70-105) mg/dL 04/25/20 Range/Units 23:16 POC Glucose 146 H (70-105) mg/dL HEART Score - HEART Score Troponin: Troponin T 0.154 ng/mL (0.00-0.029) H* 04/16/20 07:45
[2020-04-26] MEDS: INSULIN LISPRO 100 UNIT/ML SUB-Q SCH ×4 (08:58→21:52)
[2020-04-26] MEDS: cefTRIAXone/NS 2 GM/100 ML 2 GM/100 ML BAG IV SCH ×2 (09:01→09:05)
[2020-04-26] MEDS: LISINOPRIL 5 MG TAB PO SCH (09:04)
[2020-04-26] MEDS: METOPROLOL TARTRATE 25 MG TAB PO SCH ×2 (09:04→21:51)
[2020-04-26] MEDS: FAMOTIDINE 20 MG TAB PO SCH ×2 (09:04→21:50)
[2020-04-26] MEDS: SODIUM HYPOCHLORITE, DAKIN'S 1/2 STRENGTH (0.25%) 473 ML TOPICAL SOLN TP SCH ×3 (09:08→22:30)
--- NOTE | 2020-04-26 10:05 | Progress Note ---
Assessment and Plan S/p debridement 04/23/2020. Repeat COVID-19 testing yesterday is POSITIVE. Further management per primary team., Patient is maintaining normal sinus rhythm continue Lopressor and low-dose digoxin start oral anticoagulation once cleared by surgery - Patient Problems (1) Atrial fibrillation with RVR Current Visit: Yes Status: Resolved (2) COVID-19 virus infection Current Visit: Yes Status: Acute (3) Hyperkalemia Current Visit: Yes Status: Acute (4) Atrial fibrillation Current Visit: Yes Status: Chronic (5) CHF (congestive heart failure) Current Visit: Yes Status: Chronic Qualifiers: Heart failure type: combined systolic and diastolic (6) Cardiomyopathy Current Visit: Yes Status: Chronic (7) Diabetes Current Visit: Yes Status: Chronic (8) HTN (hypertension) Current Visit: Yes Status: Chronic (9) Pressure ulcer of sacral region, stage 4 Current Visit: Yes Status: Chronic Subjective Date of service: 04/26/20 Principal diagnosis: AMS Interval history: awake and no palpations Objective Vital Signs Temp Pulse Resp BP Pulse Ox 04/26/20 04:37 97.3 F L 100 04/26/20 04:22 153/69 04/25/20 23:19 96 H 20 93 04/25/20 22:20 96 H 132/81 04/25/20 22:16 96 H 132/81 04/25/20 22:09 132/81 04/25/20 16:00 74 100 04/25/20 15:59 72 18 100 04/25/20 15:56 126/57 04/25/20 15:54 88 126/57 04/25/20 10:34 147/65 - Physical Examination General: Other (confused) HEENT: Positive: PERRL Neck: Positive: neck supple, trachea midline Cardiac: Positive: Reg Rate and Rhythm Lungs: Positive: clear to auscultation Neuro: Positive: Other (confused) Abdomen: Negative: Tender Skin: Positive: Wound (decubitus ulcer). Negative: Rash - Imaging and Cardiology EKG: report reviewed, image reviewed Echo: report reviewed (EF 15-20%, LV mildly dilated) - Telemetry EKG Rhythm: Sinus Rhythm
[2020-04-26] MEDS: DIGOXIN 0.125 MG TAB PO SCH (18:01)
--- NOTE | 2020-04-26 20:33 | Progress Note ---
Assessment and Plan - Patient Problems (1) Atrial fibrillation with RVR Current Visit: Yes Status: Resolved Plan to address problem: Patient is maintaining normal sinus rhythm continue Lopressor and low-dose digoxin start oral anticoagulation once cleared by surgery (2) Acute encephalopathy Current Visit: Yes Status: Acute Plan to address problem: Secondary to sepsis and decubitus ulcer infections Improving (3) Sepsis Current Visit: Yes Status: Suspected Qualifiers: Severe sepsis shock status: without septic shock Plan to address problem: Secondary to decubitus ulcers and leg ulcers which are infected Antibiotics streamlined to IV ceftriaxone and Flagyl, treat for maximum of 14 days of abx. Prolonged antibiotics are going to be futile considering patient's overall clinical condition, comorbidities, nutritional status, bedbound status. -OK to DC with Levaquin 750mg q24h and metronidazole 500mg q8h until 04/29/2020 [address] placement (4) CHF (congestive heart failure) Current Visit: Yes Status: Chronic Qualifiers: Heart failure type: combined systolic and diastolic Plan to address problem: Echocardiogram for ejection fraction Gentle hydration till then (5) Hyperkalemia Current Visit: Yes Status: Acute Plan to address problem: Mild Calcium gluconate given (6) T2DM (type 2 diabetes mellitus) Current Visit: Yes Status: Chronic Qualifiers: Diabetes mellitus prison insulin use: without prison use Plan to address problem: Cont Insulin per coverage (7) DVT prophylaxis Current Visit: Yes Status: Acute Plan to address problem: On heparin and GI prophylaxis Subjective Date of service: 04/26/20 Principal diagnosis: Acute encephalopathy CHF Interval history: 64-year-old male with history of congestive heart failure and diabetes presents to the emergency room from [facility] with low oxygen saturations and mental status. Patient has multiple decubitus ulcers on sacrum and both of the legs. Fever present. Patient was given IV fluid bolus via EMS. Patient altered and not able to answer any of my questions. Also lethargic. Low-grade fever present. Patient is also cachectic. His oxygen levels were in the 80s and was placed on 3 L nasal cannula oxygen with saturations improving to 94%. Patient has a history of congestive heart failure diabetes and atrial fibrillation. No recent exposure to coronavirus. 04/18/2020; patient has A. fib with rapid ventricular rate, cardiology planning amiodarone drip We will transfer the patient to telemetry floor and closely monitor 04/19/2020; patient's blood culturesx2 positive for gram-negative Proteus ID consulted 04/20/2020 ID evaluation noted and appreciated , ID discontinued Vanco cefepime, And started Flagyl and Rocephin 04/22/2020; two-physician consent in the chart, possible surgical wound debridement tomorrow Heparin held, patient placed n.p.o. from midnight 04/23/2020;s/p surgical debridement of sacral decubitus ulcer today, patient tolerated the procedure Continue antibiotics and supportive care 04/24/2020; continue wound care, antibiotics per ID, follow surgery recommendations Discharge when medically stable COVID-19 test positive, isolation precautions, transfer to Covid floor MedSurg ID already following 04/25 Afebrile Awaiting placement 04/26/20 Awaiting placement Objective - Constitutional Vitals: Vital Signs - 12hr 04/26/20 04/26/20 11:00 18:13 Temperature 98.0 F Pulse Rate 70 Respiratory 18 18 Rate Blood Pressure 154/82 O2 Sat by Pulse 100 98 Oximetry General appearance: Present: no acute distress, well-nourished - EENT Eyes: PERRL, EOM intact ENT: hearing intact, clear oral mucosa Ears: bilateral: normal - Neck Neck: supple, normal ROM - Respiratory Respiratory effort: normal Respiratory: bilateral: CTA - Breasts Breasts: normal - Cardiovascular Heart rate: 78 Rhythm: regular Heart Sounds: Present: S1 & S2. Absent: gallop, rub Extremities: pulses intact, No edema, normal color, Full ROM, abnormal (Sacral decubitus ulcer) - Gastrointestinal General gastrointestinal: Present: soft, non-tender, non-distended, normal bowel sounds - Genitourinary Male genitourinary: normal - Integumentary Integumentary: clear, warm, dry - Musculoskeletal Musculoskeletal: 1, strength equal bilaterally - Neurologic Neurologic: moves all extremities - Psychiatric Psychiatric: memory intact, appropriate mood/affect, intact judgment & insight - Labs CBC & Chem 7: 04/24/20 05:03 04/23/20 05:57 Labs: Abnormal lab results 04/25/20 04/26/20 04/26/20 Range/Units 23:16 07:43 12:01 POC Glucose 146 H 142 H 187 H (70-105) mg/dL HEART Score - HEART Score Troponin: Troponin T 0.154 ng/mL (0.00-0.029) H* 04/16/20 07:45
[2020-04-27 05:38] LABS: Basophils # (Auto) 0.1 K/mm3 (0.0-0.1); Basophils % (Auto) 0.3 % (0.0-1.8); Hematocrit 34.7 % (35.5-45.6); Hemoglobin 11.3 gm/dl (11.8-15.2); Lymphocytes # (Auto) 1.6 K/mm3 (1.2-5.4); Mean Corpuscular HGB Conc 33 % (32-34); Mean Corpuscular Volume 95 fl (84-94); Monocytes # (Auto) 0.7 K/mm3 (0.0-0.8); Monocytes % (Auto) 4.2 % (0.0-7.3); Platelet Count 333 K/mm3 (140-440); Red Blood Count 3.67 M/mm3 (3.65-5.03); Red Cell Distribution Width 18.2 % (13.2-15.2)
[2020-04-27 06:05] LABS: Alanine Aminotransferase 19 units/L (7-56); Albumin 2.1 g/dL (3.9-5); Blood Urea Nitrogen 18 mg/dL (9-20); Calcium 8.3 mg/dL (8.4-10.2); Hemolysis Index 15
[2020-04-27] MEDS: metroNIDAZOLE/NS 500 MG/100 ML 500 MG/100 ML BAG IV SCH ×3 (06:06→20:01)
[2020-04-27 06:18] LABS: BUN/Creatinine Ratio 36
[2020-04-27] MEDS: FAMOTIDINE 20 MG TAB PO SCH ×2 (09:08→22:01)
[2020-04-27] MEDS: cefTRIAXone/NS 2 GM/100 ML 2 GM/100 ML BAG IV SCH ×2 (09:08→23:06)
[2020-04-27] MEDS: METOPROLOL TARTRATE 25 MG TAB PO SCH ×2 (09:08→22:01)
[2020-04-27] MEDS: LISINOPRIL 5 MG TAB PO SCH (09:08)
[2020-04-27] MEDS: INSULIN LISPRO 100 UNIT/ML SUB-Q SCH ×4 (09:10→23:55)
[2020-04-27] MEDS: SODIUM HYPOCHLORITE, DAKIN'S 1/2 STRENGTH (0.25%) 473 ML TOPICAL SOLN TP SCH ×2 (09:10→21:40)
--- NOTE | 2020-04-27 10:17 | Progress Note ---
Assessment and Plan S/p debridement 04/23/2020. Repeat COVID-19 testing yesterday is POSITIVE. Further management per primary team., Patient is maintaining normal sinus rhythm continue Lopressor and low-dose digoxin start oral anticoagulation once cleared by surgery - Patient Problems (1) Atrial fibrillation with RVR Current Visit: Yes Status: Resolved (2) COVID-19 virus infection Current Visit: Yes Status: Acute (3) Hyperkalemia Current Visit: Yes Status: Acute (4) Atrial fibrillation Current Visit: Yes Status: Chronic (5) CHF (congestive heart failure) Current Visit: Yes Status: Chronic Qualifiers: Heart failure type: combined systolic and diastolic (6) Cardiomyopathy Current Visit: Yes Status: Chronic (7) Diabetes Current Visit: Yes Status: Chronic (8) HTN (hypertension) Current Visit: Yes Status: Chronic (9) Pressure ulcer of sacral region, stage 4 Current Visit: Yes Status: Chronic Subjective Date of service: 04/27/20 Principal diagnosis: Acute encephalopathy CHF Interval history: wants to go home Objective Vital Signs Temp Pulse Resp BP Pulse Ox 04/27/20 04:35 97.4 F L 71 18 153/79 93 04/26/20 23:13 97.8 F 59 L 14 129/90 99 04/26/20 18:13 98.0 F 70 18 154/82 98 04/26/20 11:00 18 100 - Physical Examination General: Other (confused) HEENT: Positive: PERRL Neck: Positive: neck supple, trachea midline Cardiac: Positive: Reg Rate and Rhythm Lungs: Positive: clear to auscultation Neuro: Positive: Other (confused) Abdomen: Negative: Tender Skin: Positive: Wound (decubitus ulcer). Negative: Rash - Labs and Meds Cardiac Enzymes 04/27/20 Range/Units 04:33 AST 24 (5-40) units/L CBC 04/27/20 Range/Units 04:33 WBC 17.2 H (4.5-11.0) K/mm3 RBC 3.67 (3.65-5.03) M/mm3 Hgb 11.3 L (11.8-15.2) gm/dl Hct 34.7 L (35.5-45.6) % Plt Count 333 (140-440) K/mm3 Lymph # (Auto) 1.6 (1.2-5.4) K/mm3 [place] # (Auto) 0.7 (0.0-0.8) K/mm3 Eos # (Auto) 0.0 (0.0-0.4) K/mm3 Baso # (Auto) 0.1 (0.0-0.1) K/mm3 Comprehensive Metabolic Panel 04/27/20 Range/Units 04:33 Sodium 137 (137-145) mmol/L Potassium 4.2 (3.6-5.0) mmol/L Chloride 107.1 H (98-107) mmol/L Carbon Dioxide 20 L (22-30) mmol/L BUN 18 (9-20) mg/dL Creatinine 0.5 L (0.8-1.3) mg/dL Glucose 161 H (75-100) mg/dL Calcium 8.3 L (8.4-10.2) mg/dL AST 24 (5-40) units/L ALT 19 (7-56) units/L Alkaline Phosphatase 159 H (35-129) units/L Total Protein 5.3 L (6.3-8.2) g/dL Albumin 2.1 L (3.9-5) g/dL - Imaging and Cardiology EKG: report reviewed, image reviewed Echo: report reviewed (EF 15-20%, LV mildly dilated) - Telemetry EKG Rhythm: Sinus Rhythm
--- NOTE | 2020-04-27 12:41 | Progress Note ---
Assessment and Plan - Patient Problems (1) Atrial fibrillation with RVR Current Visit: Yes Status: Resolved Plan to address problem: Patient is maintaining normal sinus rhythm continue Lopressor and low-dose digoxin start oral anticoagulation once cleared by surgery (2) Acute encephalopathy Current Visit: Yes Status: Acute Plan to address problem: Secondary to sepsis and decubitus ulcer infections Improving (3) Sepsis Current Visit: Yes Status: Suspected Qualifiers: Severe sepsis shock status: without septic shock Plan to address problem: Secondary to decubitus ulcers and leg ulcers which are infected Antibiotics streamlined to IV ceftriaxone and Flagyl, treat for maximum of 14 days of abx. Prolonged antibiotics are going to be futile considering patient's overall clinical condition, comorbidities, nutritional status, bedbound status. -OK to DC with Levaquin 750mg q24h and metronidazole 500mg q8h until 04/29/2020 Awaiting placement (4) CHF (congestive heart failure) Current Visit: Yes Status: Chronic Qualifiers: Heart failure type: combined systolic and diastolic Plan to address problem: Echocardiogram for ejection fraction Gentle hydration till then (5) Hyperkalemia Current Visit: Yes Status: Acute Plan to address problem: Mild Calcium gluconate given (6) T2DM (type 2 diabetes mellitus) Current Visit: Yes Status: Chronic Qualifiers: Diabetes mellitus penitentiary insulin use: without penitentiary use Plan to address problem: Cont Insulin per coverage (7) DVT prophylaxis Current Visit: Yes Status: Acute Plan to address problem: On heparin and GI prophylaxis Subjective Date of service: 04/27/20 Principal diagnosis: Acute encephalopathy CHF Interval history: 64-year-old male with history of congestive heart failure and diabetes presents to the emergency room from [facility] with low oxygen saturations and mental status. Patient has multiple decubitus ulcers on sacrum and both of the legs. Fever present. Patient was given IV fluid bolus via EMS. Patient altered and not able to answer any of my questions. Also lethargic. Low-grade fever present. Patient is also cachectic. His oxygen levels were in the 80s and was placed on 3 L nasal cannula oxygen with saturations improving to 94%. Patient has a history of congestive heart failure diabetes and atrial fibrillation. No recent exposure to coronavirus. 04/18/2020; patient has A. fib with rapid ventricular rate, cardiology planning amiodarone drip We will transfer the patient to telemetry floor and closely monitor 04/19/2020; patient's blood culturesx2 positive for gram-negative Proteus ID consulted 04/20/2020 ID evaluation noted and appreciated , ID discontinued Vanco cefepime, And started Flagyl and Rocephin 04/22/2020; two-physician consent in the chart, possible surgical wound debridement tomorrow Heparin held, patient placed n.p.o. from midnight 04/23/2020;s/p surgical debridement of sacral decubitus ulcer today, patient tolerated the procedure Continue antibiotics and supportive care 04/24/2020; continue wound care, antibiotics per ID, follow surgery recommendations Discharge when medically stable COVID-19 test positive, isolation precautions, transfer to Covid floor MedSurg ID already following 04/25 Afebrile Awaiting placement 04/26/20 Awaiting placement 04/27/20 Awaiting placement Objective - Constitutional Vitals: Vital Signs - 12hr 04/27/20 04/27/20 04:35 11:00 Temperature 97.4 F L Pulse Rate 71 Respiratory 18 18 Rate Blood Pressure 153/79 O2 Sat by Pulse 93 100 Oximetry General appearance: Present: no acute distress, well-nourished - EENT Eyes: PERRL, EOM intact ENT: hearing intact, clear oral mucosa Ears: bilateral: normal - Neck Neck: supple, normal ROM - Respiratory Respiratory effort: normal Respiratory: bilateral: CTA - Breasts Breasts: normal - Cardiovascular Heart rate: 78 Rhythm: regular Heart Sounds: Present: S1 & S2. Absent: gallop, rub Extremities: pulses intact, No edema, normal color, Full ROM - Gastrointestinal General gastrointestinal: Present: soft, non-tender, non-distended, normal bowel sounds - Genitourinary Male genitourinary: normal - Integumentary Integumentary: clear, warm, dry - Musculoskeletal Musculoskeletal: 1, strength equal bilaterally - Neurologic Neurologic: moves all extremities - Psychiatric Psychiatric: memory intact, appropriate mood/affect, intact judgment & insight - Labs CBC & Chem 7: 04/27/20 04:33 04/27/20 04:33 Labs: Abnormal lab results 04/26/20 04/26/20 04/26/20 Range/Units 07:43 12:01 16:05 WBC (4.5-11.0) K/mm3 Hgb (11.8-15.2) gm/dl Hct (35.5-45.6) % MCV (84-94) fl RDW (13.2-15.2) % Lymph % (Auto) (13.4-35.0) % Seg Neutrophils % (40.0-70.0) % Seg Neutrophils # (1.8-7.7) K/mm3 Chloride (98-107) mmol/L Carbon Dioxide (22-30) mmol/L Creatinine (0.8-1.3) mg/dL Glucose (75-100) mg/dL POC Glucose 142 H 187 H 194 H (70-105) mg/dL Calcium (8.4-10.2) mg/dL Alkaline Phosphatase (35-129) units/L Total Protein (6.3-8.2) g/dL Albumin (3.9-5) g/dL 04/26/20 04/27/20 04/27/20 Range/Units 21:40 04:33 04:33 WBC 17.2 H (4.5-11.0) K/mm3 Hgb 11.3 L (11.8-15.2) gm/dl Hct 34.7 L (35.5-45.6) % MCV 95 H (84-94) fl RDW 18.2 H (13.2-15.2) % Lymph % (Auto) 9.0 L (13.4-35.0) % Seg Neutrophils % 86.5 H (40.0-70.0) % Seg Neutrophils # 14.9 H (1.8-7.7) K/mm3 Chloride 107.1 H (98-107) mmol/L Carbon Dioxide 20 L (22-30) mmol/L Creatinine 0.5 L (0.8-1.3) mg/dL Glucose 161 H (75-100) mg/dL POC Glucose 159 H (70-105) mg/dL Calcium 8.3 L (8.4-10.2) mg/dL Alkaline Phosphatase 159 H (35-129) units/L Total Protein 5.3 L (6.3-8.2) g/dL Albumin 2.1 L (3.9-5) g/dL 04/27/20 04/27/20 Range/Units 07:59 11:37 WBC (4.5-11.0) K/mm3 Hgb (11.8-15.2) gm/dl Hct (35.5-45.6) % MCV (84-94) fl RDW (13.2-15.2) % Lymph % (Auto) (13.4-35.0) % Seg Neutrophils % (40.0-70.0) % Seg Neutrophils # (1.8-7.7) K/mm3 Chloride (98-107) mmol/L Carbon Dioxide (22-30) mmol/L Creatinine (0.8-1.3) mg/dL Glucose (75-100) mg/dL POC Glucose 150 H 173 H (70-105) mg/dL Calcium (8.4-10.2) mg/dL Alkaline Phosphatase (35-129) units/L Total Protein (6.3-8.2) g/dL Albumin (3.9-5) g/dL HEART Score - HEART Score Troponin: Troponin T 0.154 ng/mL (0.00-0.029) H* 04/16/20 07:45
[2020-04-27] MEDS: DIGOXIN 0.125 MG TAB PO SCH (16:04)
[2020-04-28] MEDS: metroNIDAZOLE/NS 500 MG/100 ML 500 MG/100 ML BAG IV SCH (04:51)
[2020-04-28] MEDS: INSULIN LISPRO 100 UNIT/ML SUB-Q SCH ×3 (08:46→18:04)
[2020-04-28] MEDS: cefTRIAXone/NS 2 GM/100 ML 2 GM/100 ML BAG IV SCH (09:12)
[2020-04-28] MEDS: METOPROLOL TARTRATE 25 MG TAB PO SCH (09:13)
[2020-04-28] MEDS: LISINOPRIL 5 MG TAB PO SCH (09:13)
[2020-04-28] MEDS: SODIUM HYPOCHLORITE, DAKIN'S 1/2 STRENGTH (0.25%) 473 ML TOPICAL SOLN TP SCH (09:13)
[2020-04-28] MEDS: FAMOTIDINE 20 MG TAB PO SCH (09:13)
--- NOTE | 2020-04-28 09:40 | Progress Note ---
Assessment and Plan Cultures: 04/15/2020 urine culture: No growth 04/15/2020 blood culture: Proteus mirabilis 04/21/2020 blood culture: no growth. A/P: 64-year-old male with CHF, diabetes, hypertension, longterm resident was admitted to the hospital with change in mental status: #Sepsis: secondary to Proteus bacteremia likely source is multiple infected and necrotic decubiti: sacral and left hip, remains with leukocytosis. #Proteus mirabilis bacteremia: Secondary to necrotic decubiti #Extensive left hip sacral wound and sacral wound: left hip bone is palpable, muscle exposed. Likely osteomyelitis. #Cachexia, severe protein calorie malnutrition, bedbound status #Cardiomyopathy, EF of 15 to 20% #DM uncontrolled #COVID: not presently hypoxic, continue to monitor. Was negative earlier on admission. CT shows no consolidation. No PE. Initial markers D-dimer 801, ferritin 469, CRP 17. Recs: -Monitor WBC -Continue ceftriaxone and Flagyl, treat for maximum of 14 days of abx. -Prolonged antibiotics are futile considering patient's overall clinical condition, comorbidities, nutritional status, bedbound status. Patient is not a good candidate for muscle flap. -OK to DC with Levaquin 750mg q24h and metronidazole 500mg q8h until 04/29/2020 -Appreciate wound care -Offloading is not main therapy will follow MD [facility] ([facility]) Office [phone] Subjective Date of service: 04/28/20 Principal diagnosis: Bacteremia Interval history: Remains afebrile, no acute events Objective - Exam Narrative Exam: General appearance: Alert in NAD Eyes: anicteric sclerae, moist conjunctivae; no lid-lag; PERRLA HENT: Normocephalic, Atraumatic; normal external ears, nares open, oropharynx edentulous Neck: supple Lungs: Clear to auscultation CV: RRR no murmur Abdomen: Soft, non-tender; no masses or hepatosplenomegaly Extremities: Contracted lower extremities Skin: Sacral Psych: no agitated Neuro: Alert - Constitutional Vitals: Vital Signs Temp Pulse Resp BP Pulse Ox 97.7 F 64 17 152/81 93 04/28/20 06:23 04/28/20 06:23 04/28/20 06:23 04/28/20 06:23 04/28/20 06:23 Temperature -Last 24 Hours Temperature 97.7 F Temperature 97.9 F Temperature 97.4 F Temperature 97.5 F - Labs CBC & Chem 7: 04/27/20 04:33 04/27/20 04:33 Labs: Abnormal lab results 04/27/20 04/27/20 04/27/20 Range/Units 07:59 11:37 15:59 POC Glucose 150 H 173 H 143 H (70-105) mg/dL 04/27/20 04/28/20 Range/Units 22:28 07:35 POC Glucose 162 H 156 H (70-105) mg/dL
--- NOTE | 2020-04-28 11:22 | Progress Note ---
Assessment and Plan S/p debridement 04/23/2020. Repeat COVID-19 testing on 04/24/2020 was POSITIVE. Further management per primary team. tele reviewed - in AFib/AFlutter HR 60-70s. cont daily PO digoxin and lopressor. Cont lisinopril in setting of CMP. Plan for initiation of systemic AC if/when ok per general surgery. Cont with conservative cardiac management in setting of chronic debility, dementia and multiple co-morbidities. The patient has been seen in conjunction with Dr. Altamirano who agrees with the assessment and plan of care. - Patient Problems (1) AMS (altered mental status) Current Visit: Yes Status: Acute (2) Pressure ulcer of sacral region, stage 4 Current Visit: Yes Status: Chronic (3) COVID-19 virus infection Current Visit: Yes Status: Acute (4) Sepsis Current Visit: Yes Status: Suspected Qualifiers: Severe sepsis shock status: without septic shock (5) Atrial fibrillation with RVR Current Visit: Yes Status: Resolved (6) Hypoxia Current Visit: Yes Status: Acute (7) Cardiomyopathy Current Visit: Yes Status: Chronic (8) HTN (hypertension) Current Visit: Yes Status: Chronic (9) Diabetes Current Visit: Yes Status: Chronic Subjective Date of service: 04/28/20 Principal diagnosis: Bacteremia Interval history: pt resting in bed, remains confused. tele reviewed - in AFib/AFlutter HR 60-70s. Objective Last Vital Signs Temp 97.7 F 04/28/20 06:23 Pulse 64 04/28/20 06:23 Resp 17 04/28/20 06:23 BP 152/81 04/28/20 06:23 Pulse Ox 93 04/28/20 06:23 - Physical Examination General: Other (confused) HEENT: Positive: PERRL Neck: Positive: neck supple, trachea midline Cardiac: Positive: irregularly irregular, S1/S2 Lungs: Positive: Decreased Breath Sounds Neuro: Positive: Other (confused) Abdomen: Negative: Tender Skin: Positive: Wound (decubitus ulcer). Negative: Rash - Imaging and Cardiology EKG: report reviewed, image reviewed Echo: report reviewed (EF 15-20%, LV mildly dilated)
--- NOTE | 2020-04-28 11:49 | Progress Note ---
Assessment and Plan - Patient Problems (1) Atrial fibrillation with RVR Current Visit: Yes Status: Resolved (2) Acute encephalopathy Current Visit: Yes Status: Acute (3) Sepsis Current Visit: Yes Status: Suspected Qualifiers: Severe sepsis shock status: without septic shock (4) CHF (congestive heart failure) Current Visit: Yes Status: Chronic Qualifiers: Heart failure type: combined systolic and diastolic (5) Hyperkalemia Current Visit: Yes Status: Acute (6) T2DM (type 2 diabetes mellitus) Current Visit: Yes Status: Chronic Qualifiers: Diabetes mellitus senior care insulin use: without manager long term care use (7) DVT prophylaxis Current Visit: Yes Status: Acute Subjective Date of service: 04/28/20 Principal diagnosis: Bacteremia Interval history: 64-year-old male with history of congestive heart failure and diabetes presents to the emergency room from [facility] with low oxygen saturations and mental status. Patient has multiple decubitus ulcers on sacrum and both of the legs. Fever present. Patient was given IV fluid bolus via EMS. Patient altered and not able to answer any of my questions. Also lethargic. Low-grade fever present. Patient is also cachectic. His oxygen levels were in the 80s and was placed on 3 L nasal cannula oxygen with saturations improving to 94%. Patient has a history of congestive heart failure diabetes and atrial fibrillation. No recent exposure to coronavirus. 04/18/2020; patient has A. fib with rapid ventricular rate, cardiology planning amiodarone drip We will transfer the patient to telemetry floor and closely monitor 04/19/2020; patient's blood culturesx2 positive for gram-negative Proteus ID consulted 04/20/2020 ID evaluation noted and appreciated , ID discontinued Vanco cefepime, And started Flagyl and Rocephin 04/22/2020; two-physician consent in the chart, possible surgical wound debridement tomorrow Heparin held, patient placed n.p.o. from midnight 04/23/2020;s/p surgical debridement of sacral decubitus ulcer today, patient tolerated the procedure Continue antibiotics and supportive care 04/24/2020; continue wound care, antibiotics per ID, follow surgery recommendations Discharge when medically stable COVID-19 test positive, isolation precautions, transfer to Covid floor MedSurg ID already following 04/25 Afebrile Awaiting placement 04/26/20 Awaiting placement 04/27/20 Awaiting placement Objective - Constitutional Vitals: Vital Signs - 12hr 04/28/20 04/28/20 06:23 11:17 Temperature 97.7 F 98.3 F Pulse Rate 64 86 Respiratory 17 22 Rate Blood Pressure 152/81 127/66 O2 Sat by Pulse 93 95 Oximetry - Labs CBC & Chem 7: 04/27/20 04:33 04/27/20 04:33 Labs: Abnormal lab results 04/27/20 04/27/20 04/27/20 Range/Units 11:37 15:59 22:28 POC Glucose 173 H 143 H 162 H (70-105) mg/dL 04/28/20 04/28/20 Range/Units 07:35 11:32 POC Glucose 156 H 227 H (70-105) mg/dL HEART Score - HEART Score Troponin: Troponin T 0.154 ng/mL (0.00-0.029) H* 04/16/20 07:45
[2020-04-28] MEDS ORDERED: metroNIDAZOLE 500 MG TAB PO SCH (14:00)
--- NOTE | 2020-04-28 15:09 | Discharge Summary ---
Providers - Providers Date of Admission: 04/15/20 19:03 Date of discharge: 04/28/20 Attending physician: CHRIS DAMICO 04/16/20 08:40 Consult to Wound/ET Nurse [CONS] Routine Reason For Exam: wound eval 04/16/20 10:54 Consult to Physician [CONS] Routine Comment: Consulting Provider: DAMEON BELTRE Physician Instructions: sharp debridement of left hip and sacral ulcers Reason For Exam: sacral and left hip decubitus ulcers 04/17/20 15:28 Consult to Physician [CONS] Routine Comment: Consulting Provider: ALYX COELHO Physician Instructions: Reason For Exam: Acute systolic congestive heart failure 04/18/20 16:45 Consult to Dietitian/Nutrition [CONS] Routine Physician Instructions: Reason For Exam: please add dietary shakes to all meals thanks Reason for Consult: Poor oral intake 04/20/20 08:36 Consult to Physician [CONS] Routine Comment: Consulting Provider: JACE TRIANA Physician Instructions: Reason For Exam: Gram-negative bacteremia/Proteus 04/21/20 09:04 Physical Therapy Evaluation and Treat [CONS] Routine Comment: Reason For Exam: debility Mode of Transport?: Wheelchair 04/21/20 09:05 Occupational Therapy Evaluate and Treat [CONS] Routine Comment: Reason For Exam: debility Primary care physician: [facility]ANS[facility] DEEPA/[facility] Hospitalization Condition: Fair Hospital course: Subjective Date of service: 04/28/20 Principal diagnosis: Acute encephalopathy CHF Interval history: 64-year-old male with history of congestive heart failure and diabetes presents to the emergency room from [facility] with low oxygen saturations and mental status. Patient has multiple decubitus ulcers on sacrum and both of the legs. Fever present. Patient was given IV fluid bolus via EMS. Patient altered and not able to answer any of my questions. Also lethargic. Low-grade fever present. Patient is also cachectic. His oxygen levels were in the 80s and was placed on 3 L nasal cannula oxygen with saturations improving to 94%. Patient has a history of congestive heart failure diabetes and atrial fibrillation. No recent exposure to coronavirus. 04/18/2020; patient has A. fib with rapid ventricular rate, cardiology planning amiodarone drip We will transfer the patient to telemetry floor and closely monitor 04/19/2020; patient's blood culturesx2 positive for gram-negative Proteus ID consulted 04/20/2020 ID evaluation noted and appreciated , ID discontinued Vanco cefepime, And started Flagyl and Rocephin 04/22/2020; two-physician consent in the chart, possible surgical wound debridement tomorrow Heparin held, patient placed n.p.o. from midnight 04/23/2020;s/p surgical debridement of sacral decubitus ulcer today, patient tolerated the procedure Continue antibiotics and supportive care 04/24/2020; continue wound care, antibiotics per ID, follow surgery recommendations Discharge when medically stable COVID-19 test positive, isolation precautions, transfer to [facility] floor MedSurg ID already following 04/25 Afebrile Awaiting placement 04/26/20 Awaiting placement 04/27/20 Awaiting placement 04/28/20 Discharged to [facility] Patient finished course of antibiotics Needs 1 more day of Levaquin and Flagyl ID consult appreciated Wound care to continue at the [facility] Assessment and Plan - Patient Problems (1) Atrial fibrillation with RVR Current Visit: Yes Status: Resolved Plan to address problem: Patient is maintaining normal sinus rhythm continue Lopressor and low-dose digoxin start oral anticoagulation once cleared by surgery (2) Acute encephalopathy Current Visit: Yes Status: Acute Plan to address problem: Secondary to sepsis and decubitus ulcer infections Improved (3) Sepsis Current Visit: Yes Status: Suspected Qualifiers: Severe sepsis shock status: without septic shock Plan to address problem: Secondary to decubitus ulcers and leg ulcers which are infected Antibiotics streamlined to IV ceftriaxone and Flagyl, treat for maximum of 14 days of abx. Prolonged antibiotics are going to be futile considering patient's overall clinical condition, comorbidities, nutritional status, bedbound status. -OK to DC with Levaquin 750mg q24h and metronidazole 500mg q8h until 04/29/2020 Awaiting placement (4) CHF (congestive heart failure) Current Visit: Yes Status: Chronic Qualifiers: Heart failure type: combined systolic and diastolic Plan to address problem: Echocardiogram for ejection fraction Gentle hydration till then (5) Hyperkalemia Current Visit: Yes Status: Acute Plan to address problem: Mild Calcium gluconate given (6) T2DM (type 2 diabetes mellitus) Current Visit: Yes Status: Chronic Qualifiers: Diabetes mellitus residential insulin use: without residential use Plan to address problem: Cont Insulin per coverage (7) DVT prophylaxis Current Visit: Yes Status: Acute Plan to address problem: On heparin and GI prophylaxis Disposition: DC/[place]-[facility] Final Discharge Diagnosis (Prints w/discharge instructions): Acute metabolic encephalopathy. Sepsis. Decubitus ulcers - Discharge Diagnoses (1) Atrial fibrillation with RVR Status: Resolved (2) Acute encephalopathy Status: Acute (3) Sepsis Status: Suspected Qualifiers: Severe sepsis shock status: without septic shock (4) CHF (congestive heart failure) Status: Chronic Qualifiers: Heart failure type: combined systolic and diastolic (5) Hyperkalemia Status: Acute (6) T2DM (type 2 diabetes mellitus) Status: Chronic Qualifiers: Diabetes mellitus residential insulin use: without termite exterminator helper use (7) DVT prophylaxis Status: Acute Core Measure Documentation - Palliative Care Palliative Care/ Comfort Measures: Not Applicable - Core Measures Any of the following diagnoses?: none Exam - Constitutional Vitals: Temp Pulse Resp BP Pulse Ox 98.3 F 86 22 127/66 95 04/28/20 11:17 04/28/20 11:17 04/28/20 11:17 04/28/20 11:17 04/28/20 11:17 General appearance: Present: no acute distress, well-nourished - EENT Eyes: Present: PERRL ENT: hearing intact, clear oral mucosa - Neck Neck: Present: supple, normal ROM - Respiratory Respiratory effort: normal Respiratory: bilateral: CTA - Cardiovascular Heart Sounds: Present: S1 & S2. Absent: rub, click - Extremities Extremities: pulses symmetrical, No edema Extremity abnormal: other (Decubitus ulcers) Peripheral Pulses: within normal limits - Abdominal General gastrointestinal: Present: soft, non-tender, non-distended, normal bowel sounds Male genitourinary: Present: normal - Integumentary Integumentary: Present: clear, warm, dry - Musculoskeletal Musculoskeletal: gait normal, strength equal bilaterally - Psychiatric Psychiatric: appropriate mood/affect, intact judgment & insight - Neurologic Neurologic: CNII-XII intact, moves all extremities Plan Activity: no restrictions Diet: diabetic Special Instructions: other (Wound care) Durable Medical Equipment Needed Upon Discharge: other (Wound care) Follow up with: [facility]REHAB,[facility] [Primary Care Provider] - 3-5 Days
[2020-04-28] MEDS: DIGOXIN 0.125 MG TAB PO SCH (18:05)
[2020-04-28 18:40] VITALS: BP 143/88
== END 2020-04-28 19:00 | DRG 853 ==
LOC: ED 12:57 → 3A 19:03 → 4A 04-18 14:01 → 3A 04-24 22:09
PROVIDERS: ADMIT Internal Medicine; ATTEND Internal Medicine
PROC: 0KBP0ZZ Excision of Left Hip Muscle, Open Approach (ICD-10-PCS; principal; 2020-04-23)
PROC: 0KBN0ZZ Excision of Right Hip Muscle, Open Approach (ICD-10-PCS; 2020-04-23)
PROC: 0QB30ZZ Excision of Left Pelvic Bone, Open Approach (ICD-10-PCS; 2020-04-23)
DX: A41.50 Gram-negative sepsis, unspecified (principal); L89.224 Pressure ulcer of left hip, stage 4; U07.1 COVID-19; G93.41 Metabolic encephalopathy; L89.894 Pressure ulcer of other site, stage 4; E43 Unspecified severe protein-calorie malnutrition; I50.42 Chronic combined systolic (congestive) and diastolic (congestive) heart failure; Z68.1 Body mass index [BMI] 19.9 or less, adult; I42.8 Other cardiomyopathies; E87.5 Hyperkalemia; I11.0 Hypertensive heart disease with heart failure; I48.91 Unspecified atrial fibrillation; E11.65 Type 2 diabetes mellitus with hyperglycemia; Z79.899 Other long term (current) drug therapy; Z79.891 Long term (current) use of opiate analgesic; Z79.01 Long term (current) use of anticoagulants; Z79.4 Long term (current) use of insulin; Z82.49 Family history of ischemic heart disease and other diseases of the circulatory system
CPT/HCPCS: 36415; 70450; 71045; 71275; 80048; 80053; 80061; 80202; 81001; 82140; 82550; 82553; 82728; 82803; 82947; 82962; 83036; 83520; 83615; 83735; 83880; 84145; 84484; 85007; 85025; 85027; 85379; 85730; 86140; 87040; 87076; 87086; 87186; 93005; 93306; 94760; G0378; A6260; J0282; J0692; J0696; J1160; J1170; J1630; J1644; J1815; J1940; J3370; J7030; J7050; J7060; Q9967; U0003